=== PATIENT | female | born 1955 | race Caucasian/White ===

== ENCOUNTER 2021-08-29 11:01 | Emergency (ER) | payer MEDICARE, SELFPAY ==
--- NOTE | ~2021-08-29 | XR_ITS ---
EXAMINATION: XR abdomen/kub 1V DATE: 08/29/2021 12:27 INDICATION: Right lower quadrant abdominal pain. Constipation. TECHNIQUE: A supine view of the abdomen on 2 radiographs was obtained. COMPARISON: None. FINDINGS: There are no dilated loops of bowel. There is a small volume of stool in the colon. There i s a gallstone in the gallbladder. There are phleboliths in the pelvis. IMPRESSION: 1. Normal bowel gas pattern. 2. Cholelithiasis. Reviewed, dictated and finalized at location A.
[2021-08-29 11:07] VITALS: BP 126/67; PULSE 117; RESP 16; TEMP 35.8; O2SAT 98
--- NOTE | 2021-08-29 12:10 | ED.ABDPAIN ---
HPI - Abdominal Pain General Chief Complaint: Abdominal Pain Stated Complaint: front right lower pain Time Seen by Provider: 08/29/21 12:10 Mode of arrival: ambulatory Limitations: no limitations History of Present Illness HPI narrative: 66-year-old female presents with concern for right lower quadrant abdominal pain. She reports symptoms started 3 days ago and have not improved. She reports a feeling of abdominal gas that is not going away. She reports she has not had a bowel movement in 4 days. She typically has a bowel movement every other day. She denies dysuria, frequency, urgency, nausea, vomiting, diarrhea. Reports decreased appetite and fatigue. Reports pain is exacerbated when she moves, rolls over in bed. Denies relieving factors MD elicited complaint: abdominal pain Related Data Home Medications Medication Instructions Recorded Confirmed canagliflozin-metformin [Invokamet] 1 tablet PO BID 08/29/21 08/29/21 exenatide microspheres [Bydureon 2 mg SUBCUT WEEKLY 08/29/21 08/29/21 BCise] gabapentin 600 mg PO BID 08/29/21 08/29/21 levothyroxine 100 mcg PO DAILY 08/29/21 08/29/21 lisinopril 2.5 mg PO BID 08/29/21 08/29/21 metformin 1,000 mg PO BID 08/29/21 08/29/21 simvastatin 20 mg PO DAILY 08/29/21 08/29/21 Allergies Allergy/AdvReac Type Severity Reaction Status Date / Time No Known Allergies Allergy Unverified 10/06/17 06:56 Review of Systems Review of Systems: CONSTITUTIONAL: Denies malaise, chills, sweats, or fever. Reports fatigue CARDIOVASCULAR: Denies chest pain, palpitations, or edema. RESPIRATORY: Denies cough or dyspnea. GASTROINTESTINAL: Reports right lower quadrant pain, constipation, decreased appetite. Denies nausea, vomiting, diarrhea, bloody, or mucous stools. GENITOURINARY: Denies dysuria, frequency, urgency, or hematuria. SKIN: Denies rash or itching. MUSCULOSKELETAL: Reports low back pain. Denies myalgia. NEUROLOGIC: Denies numbness, weakness, or headache. All systems reviewed & are unremarkable except as noted in HPI and below [facility] Family History Family History (Updated 06/21/14 @ 12:21 by DOCTOR UNKNOWN) Other Diabetes mellitus Family history of gout Family history of malignant neoplasm Hypertension Social History Social History Smoking status: Never smoker Alcohol intake: current Comments At time of signature, agree with nursing past medical, surgical, social and family history. There is no relevant family history pertinent to the presenting complaint Exam Narrative: GENERAL: Well-appearing, well-nourished, and in no acute distress. HEAD: Normocephalic EYES: PERRLA, sclera clear ENT: Nares clear. Mucous membranes moist NECK: Supple. CHEST: No respiratory distress. Clear to auscultation. No bony deformities, no asymmetry. Speaks in full sentences. HEART: Regular rate and rhythm. ABDOMEN: Soft, obese, nondistended, no palpable masses. Bilateral upper quadrant bowel sounds normal, bilateral lower quadrant bowel sounds hypoactive, right upper quadrant tenderness, right lower quadrant tenderness EXTREMITIES: Grossly normal range of motion, no edema. SKIN: Warm, dry, no visible rash. NEURO: Alert and oriented x3. PSYCH: Normal mood and affect Course Course Emergency Course: Discussed with patient limited diagnostic capability [facility] for abdominal pain. Reviewed lab results and x-ray results. Offered transfer to emergency department versus follow-up with primary care. Patient prefers to follow-up with primary care, she understands reasons to go the emergency room for symptoms change or worsen. Based on urinalysis will start antibiotic pending urine culture. Patient is aware of, understands and agrees to treatment plan. Anticipatory guidance given. Patient agrees to follow-up as directed and is aware of reasons to seek care at the emergency department. Portions of this record may have been created with voice recognition software Level of Care: Expr
== END 2021-08-29 12:48 | disposition home or self-care (01) ==
PROVIDERS: Emergency Provider Nurse Practitioner; PCP Physician Assistant
DX: R82.90 Unspecified abnormal findings in urine (principal); K80.20 Calculus of gallbladder without cholecystitis without obstruction; E78.00 Pure hypercholesterolemia, unspecified; I10 Essential (primary) hypertension; M19.90 Unspecified osteoarthritis, unspecified site; E11.9 Type 2 diabetes mellitus without complications; E03.9 Hypothyroidism, unspecified
CPT/HCPCS: 74018; 81003; 87086; 87088; 99203; G0463

== ENCOUNTER 2021-08-29 15:28 | Observation (INO) | payer MEDICARE, SELFPAY ==
[2021-08-29] VITALS (10 sets, daily range): BP systolic 96–144; BP diastolic 59–86; PULSE 90–114; RESP 16–18; TEMP 36.6–36.8; O2SAT 92–99; BMI 39.0
--- NOTE | ~2021-08-29 | CT_ITS ---
EXAMINATION: CT abdomen pelvis w con INDICATION: Right lower quadrant and epigastric pain TECHNIQUE: Computed tomographic images of the abdomen and pelvis were obtained after the administrati on of 100 cc of Omnipaque 350 intravenous contrast. The dose-length product (DLP) was 1274.42 mGy-cm. Automated exposure control and iterative reconstruction technique were employed. COMPARISON: None available FINDINGS: The lung bases are clear. The heart size is normal. The liver, spleen, pancreas, and adrena l glands are normal. There is a stone in the nondistended gallbladder. The kidneys are unremarkable. There is calcified atherosclerosis of the aorta and many of the other arteries. No pathologically enl arged abdominal or pelvic lymph nodes are identified. There is no free intraperitoneal gas or evidenc e of bowel obstruction. There is a small appendicolith in the appendix. The dilated appendix measures up to 1.4 cm. There is edematous stranding of the periappendiceal fat. No perforation or abscess is identified. Pelvic ascites is likely inflammatory. There is severe lower thoracic and lower lumbar sp ondylosis. IMPRESSION: 1. Acute appendicitis. 2. Cholelithiasis without evidence of cholecystitis. These findings were discussed with Ariela Lin PA-C in the Emergency Department at 1809 hours on 08/29/2021. Reviewed, dictated and finalized at location F. IMPRESSION: 1. Acute appendicitis. 2. Cholelithiasis without evidence of cholecystitis. These findings were discussed with Ariela Lin PA-C in the Emergency Depart ment at 1809 hours on 08/29/2021.
[2021-08-29 15:44] LABS: Basophils Percent Auto 0.2 % (0.2-1.2); Eosinophils Percent Auto 0.1 % (0-4.4); Hematocrit 49.9 % (37.0-47.0); Hemoglobin 16.4 g/dL (12.0-15.0); Immature Granulocyte Absolute 0.09 K/mm3 (0.00-0.031); Immature Granulocyte Percent A 0.5 % (0-0.5); Lymphocytes Absolute Auto 1.75 K/mm3 (0.9-3.2); Lymphocytes Percent Auto 9.4 % (18.3-44.2); Mean Corpuscular HGB Conc 32.9 g/dl (32-36); Mean Corpuscular Volume 91.2 fl (80-100); Mean Platelet Volume 9.5 fl (7.4-10.4); Monocytes Absolute Auto 1.3 K/mm3 (0.1-0.6); Neutrophils Absolute Auto 15.5 K/mm3 (1.3-6.7); Neutrophils Percent Auto 82.8 % (45.5-73.1); Platelet Count Result 222 k/mm3 (150-375); Red Blood Count 5.47 M/mm3 (4.2-5.4); Red Cell Distribution Width 13.8 % (11.5-14.5); White Blood Count 18.7 K/mm3 (4.5-10.0)
[2021-08-29 15:54] LABS: Alanine Aminotransferase 19 U/L (4-35); Albumin Level 4.5 g/dL (3.5-5.1); Alkaline Phosphatase 95 U/L (38-126); Anion Gap 11 mmol/L (8-16); Aspartate Amino Transferase 21 U/L (14-36); Blood Urea Nitrogen 23 mg/dL (7-17); Calcium 9.4 mg/dL (8.4-10.2); Carbon Dioxide 25 mmol/L (22-30); Chloride 101 mmol/L (98-107); Estimated CRCL calculation 51 ml/min; Estimated Glomerular Filt Rate 45; Glucose 186 mg/dL (65-110); Lipase 76 U/L (23-300); Potassium 4.7 mmol/L (3.4-5.0); Sodium 137 mmol/L (137-145)
--- NOTE | 2021-08-29 17:06 | ED.ABDPAIN ---
HPI - Abdominal Pain General Chief Complaint: Abdominal Pain Stated Complaint: abd pain Time Seen by Provider: 08/29/21 17:05 Source: patient Mode of arrival: ambulatory Limitations: no limitations History of Present Illness HPI narrative: Patient is a 66-year-old female who presents the ED with report of abdominal pain. Patient reports she first developed mild epigastric abdominal pain 3 to 4 days ago. The pain has since migrated to her right lower quadrant and become worse over the past 3 days. Today, the pain began radiating around to her right lower back as well. She also reports having nausea, anorexia, and constipation for the past 3 days (typically has BM every other day), but denies any fever, chills, vomiting, diarrhea, chest pain, shortness of breath, urinary symptoms. Patient was seen at urgent care earlier today at which point she had a normal KUB x-ray. She was diagnosed with urinary tract infection and prescribed Augmentin. Related Data Home Medications Medication Instructions Recorded Confirmed Adult One Daily Multivitamin 1 tablet BYMOUTH BID 08/29/21 08/29/21 aspirin [Adult Aspirin] 81 mg PO QAM 08/29/21 08/29/21 canagliflozin-metformin [Invokamet] 1 tablet PO BID 08/29/21 08/29/21 exenatide microspheres [Bydureon 2 mg SUBCUT WEEKLY 08/29/21 08/29/21 BCise] gabapentin 600 mg PO BID 08/29/21 08/29/21 levothyroxine 100 mcg PO DAILY 08/29/21 08/29/21 lisinopril 2.5 mg PO QPM 08/29/21 08/29/21 simvastatin 20 mg PO DAILY 08/29/21 08/29/21 Allergies Allergy/AdvReac Type Severity Reaction Status Date / Time No Known Allergies Allergy Unverified 10/06/17 06:56 Review of Systems Review of Systems: CONSTITUTIONAL: Reports anorexia. Denies fever, chills. CARDIOVASCULAR: Denies chest pain, palpitations, or edema. RESPIRATORY: Denies cough or dyspnea. GASTROINTESTINAL: Reports epigastric and RLQ pain, nausea, constipation. Denies vomiting, rectal bleeding, or diarrhea. GENITOURINARY: Denies dysuria or hematuria. SKIN: Denies rash or itching. MUSCULOSKELETAL: Reports R lower back pain. Denies joint pain, or myalgia. NEUROLOGIC: Denies headache, numbness, or weakness. All systems reviewed & are unremarkable except as noted in HPI and below PMFSH Past Medical History Medical History (Updated 08/29/21 @ 20:31 by Ariela Lin PA-C) Diabetes mellitus Hyperlipidemia Hypertension Surgical History Surgical History (Updated 08/29/21 @ 17:33 by Ariela Lin PA-C) History of 2 sections Family History Family History Father Diabetes mellitus Hypertension Diverticulitis Grandparent Diabetes mellitus Family history of malignant neoplasm Mother Family history of malignant neoplasm Social History Social History Smoking status: Former smoker Tobacco type: cigarettes Alcohol intake: current Drinks per week: 2 Substance use: never Spiritual care concerns: No Exam Narrative: GENERAL: Well appearing, well-nourished, non-toxic, in no acute distress. HEAD: Normocephalic, atraumatic. NECK: Supple. No adenopathy, no masses. RESPIRATORY: Airway patent, respirations nonlabored. Clear to auscultation bilaterally, no rales, rhonchi, wheezing. CARDIOVASCULAR: Tachycardic with regular rhythm without murmurs, rubs, or gallops. Radial pulses 2+ and equal bilaterally. ABDOMINAL: Soft, mild tenderness to palpation in epigastric region, moderate tenderness to palpation in RLQ with + rebound, nondistended, no hepatosplenomegaly. Normoactive BS. MUSCULOSKELETAL: Moves all extremities. Strength/ROM intact without gross deformities or TTP. Mild tenderness to palpation in R lower back around sacral area. SKIN: Warm, dry, normal color. No rashes. NEURO: A&O X3. Speech clear. Cranial nerves II-XII grossly intact. Steady gait. No ataxic movements. PSYCHIATRIC: Appropriate mood and affect. Normal interaction. Course Consultations Consultation
[2021-08-29 17:56] LABS: Add Urine Microscopic? YES; Appearance Urine Cloudy (Clear); Bacteria Urine Trace /hpf; Bilirubin Urine Negative (Negative); Blood Urine 1+ (Negative); Color Urine Yellow (Yellow); Glucose Urine UA 3+ mg/dL (Negative); Ketones Urine Trace mg/dL (Negative); Leukocyte Esterase Ur 2+ LEU/UL (Negative); Mucus Urine Rare /lpf; Nitrate Urine Negative (Negative); Protein Urine 1+ mg/dL (Negative); Squamous Epithelial Cell Urine Occasional /hpf (Few); Urobilinogen Urine Negative mg/dL (<2.0); WBC Urine 21-30 /hpf
[2021-08-29] MEDS: SODIUM CHLORIDE 0.9% IV 1,000 ML 999 ML IV CONT (17:56)
[2021-08-29] MEDS: ONDANSETRON INJ 4 MG/2 ML VIAL IV PUSH (17:56)
[2021-08-29 18:06] LABS: Specific Grav Ur 1.035 (1.001-1.035)
[2021-08-29 18:50] LABS: Lactic Acid Reflex 1.4 mmol/L (0.7-2.0)
[2021-08-29] MEDS: SODIUM CHLORIDE 0.9% IV 1,000 ML 125 ML IV CONT (19:40)
--- NOTE | 2021-08-29 19:46 | PM.IMHP ---
H&P: HPI History of Present Illness Date/Time: 08/29/21 19:46 Chief Complaint: Abdominal pain. Narrative: This is a 66-year-old female with past medical history significant for type 2 diabetes mellitus, hypertension, peripheral neuropathy, dyslipidemia, obesity. Patient presents to the emergency room due to right lower quadrant pain that has been present for the last 3 days or so, chills, poor appetite, nausea and vomiting. Patient has been in her usual state of health up until this. Decided to come to the emergency room after pain progressively got worse she rates it at 7/10 in intensity. Preliminary workup was significant for CBC with leukocyte count of 18,000, urinalysis with numerous WBCs present, CT of abdomen and pelvis showed acute appendicitis. Patient is been admitted for further evaluation, management and treatment. Review of Systems Review of Systems: Right lower quadrant pain, poor appetite, nausea, vomiting, generalized malaise. Constitutional: Constitutional: Reports fever(s), Reports malaise, Denies night sweats and Reports poor appetite Eyes: Eyes: Denies change in vision ENT: Denies dysphagia, Denies vertigo, Denies dizziness, Denies nasal congestion, Denies nasal discharge, Denies nasal obstruction and Denies odynophagia Cardiovascular: Cardiovascular: Denies lightheadedness, Denies radiating jaw, neck or arm pain, Denies palpitations, Denies dyspnea on exertion and Denies orthopnea Respiratory: Respiratory: Denies cough and Denies excessive phlegm production Gastrointestinal: Gastrointestinal: Reports abdominal pain, Denies change in stool character, Denies dyspepsia, Denies heartburn, Denies diarrhea, Reports nausea and Reports vomiting Genitourinary: Genitourinary: Denies dysuria Musculoskeletal: Musculoskeletal: Denies myalgias, Denies arthralgias and Denies joint swelling Integumentary/Breasts: Skin/Breast: Denies rash Neurologic: Denies focal weakness and Denies Sensory deficit (Neuro) Psychiatric: Psychiatric: Reports no additional psychiatric complaints and Reports as per HPI Endocrine: Endocrine: Denies cold intolerance, Denies heat intolerance, Denies polyphagia, Denies polydipsia and Denies palpitations Hematologic/Lymphatic: Hematologic/Lymphatic: Reports no additional hematologic/lymphatic complaints and Reports as per HPI Allergic/Immunologic: Allergic/Immunologic: Reports no additional allergic/immunologic complaints and Reports as per HPI [facility] Past Medical History Medical History (Updated 08/30/21 @ 03:33 by Mona Chandra MD) Diabetes mellitus Hyperlipidemia Hypertension Surgical History Surgical History (Updated 08/29/21 @ 17:33 by Ariela Lin PA-C) History of 2 sections Family History Family History (Updated 08/29/21 @ 20:33 by Hilary Wong RN) Father Diabetes mellitus Hypertension Diverticulitis Grandparent Diabetes mellitus Family history of malignant neoplasm Mother Family history of malignant neoplasm Social History Social History Smoking status: Former smoker Tobacco type: cigarettes Alcohol intake: current Drinks per week: 2 Substance use: never Spiritual care concerns: No Meds Home Medications and Allergies Home Medications Medication Instructions Recorded Confirmed Type Adult One Daily Multivitamin 1 tablet BYMOUTH BID 08/29/21 08/29/21 History aspirin [Adult Aspirin] 81 mg PO QAM 08/29/21 08/29/21 History canagliflozin-metformin [Invokamet] 1 tablet PO BID 08/29/21 08/29/21 History exenatide microspheres [Bydureon 2 mg SUBCUT WEEKLY 08/29/21 08/29/21 History BCise] gabapentin 600 mg PO BID 08/29/21 08/29/21 History levothyroxine 100 mcg PO DAILY 08/29/21 08/29/21 History lisinopril 2.5 mg PO QPM 08/29/21 08/29/21 History simvastatin 20 mg PO DAILY 08/29/21 08/29/21 History Allergies Allergy/AdvReac Type Severity Reaction Status Date / Time No
--- NOTE | 2021-08-29 20:29 | ADMGEN ---
This patient, Jennifer Ibrahim, was admitted to Medical Room 349-01. Patient/family oriented to hospital policies and general routines including ID bracelet, bed and alarms, visiting hours, pain management, procedures, bathroom and other care routines, personal items, smoking policy, room service/diet, and visiting hours. Information on how to activate the Rapid Response Team has been discussed. Patient/Family are encouraged to report perceived risks to care and to ask questions if they do not understand what they are told or what they should do.
[2021-08-30 04:37] VITALS: BP 104/47; PULSE 81; RESP 16; TEMP 36.6; O2SAT 95
[2021-08-30] MEDS: SODIUM CHLORIDE 0.9% IV 1,000 ML 125 ML IV CONT ×3 (04:54→19:57)
[2021-08-30] MEDS: LEVOTHYROXINE SODIUM 100 MCG TABLET PO (05:32)
[2021-08-30 05:49] LABS: Basophils Percent Auto 0.3 % (0.2-1.2); Eosinophils Absolute Auto 0.3 K/mm3 (0-0.3); Eosinophils Percent Auto 2.1 % (0-4.4); Hematocrit 41.9 % (37.0-47.0); Hemoglobin 13.9 g/dL (12.0-15.0); Immature Granulocyte Absolute 0.05 K/mm3 (0.00-0.031); Immature Granulocyte Percent A 0.4 % (0-0.5); Lymphocytes Absolute Auto 1.62 K/mm3 (0.9-3.2); Lymphocytes Percent Auto 13.3 % (18.3-44.2); Mean Corpuscular HGB Conc 33.2 g/dl (32-36); Mean Corpuscular Hemoglobin 30.2 pg (26-34); Mean Corpuscular Volume 91.1 fl (80-100); Mean Platelet Volume 9.4 fl (7.4-10.4); Monocytes Absolute Auto 1.2 K/mm3 (0.1-0.6); Monocytes Percent Auto 10.1 % (2.6-8.5); Neutrophils Percent Auto 73.8 % (45.5-73.1); Platelet Count Result 187 k/mm3 (150-375); Red Cell Distribution Width 13.9 % (11.5-14.5); White Blood Count 12.2 K/mm3 (4.5-10.0)
[2021-08-30 06:00] LABS: Alanine Aminotransferase 14 U/L (4-35); Albumin Level 3.4 g/dL (3.5-5.1); Alkaline Phosphatase 75 U/L (38-126); Anion Gap 7 mmol/L (8-16); Aspartate Amino Transferase 18 U/L (14-36); Bilirubin,Total 0.8 mg/dL (0.2-1.3); Blood Urea Nitrogen 23 mg/dL (7-17); Calcium 8.3 mg/dL (8.4-10.2); Carbon Dioxide 23 mmol/L (22-30); Chloride 108 mmol/L (98-107); Estimated CRCL calculation 55 ml/min; Estimated Glomerular Filt Rate 50; Glucose 102 mg/dL (65-110); Potassium 3.8 mmol/L (3.4-5.0); Sodium 138 mmol/L (137-145)
[2021-08-30] MEDS: GABAPENTIN 300 MG CAPSULE 600 MG PO ×2 (09:11→17:51)
[2021-08-30] MEDS: MULTIVITAMINS THERAPEUTIC TAB (*BKC) 1 TABLET BY MOUTH ×2 (09:11→19:57)
[2021-08-30] MEDS: ENOXAPARIN 40 MG/0.4 ML SYRINGE SUB-Q (09:12)
--- NOTE | 2021-08-30 10:58 | PM.CNGS ---
Assessment and Plan Assessment and plan (1) Acute appendicitis: Onset Date: ~08/27/21 Qualifiers: Acute appendicitis type: with localized peritonitis Appendicitis abscess presence: without abscess Appendicitis gangrene presence: without gangrene Appendicitis perforation presence: without perforation Qualified Code(s): K35.30 - Acute appendicitis with localized peritonitis, without perforation or gangrene Code(s): K35.80 - Unspecified acute appendicitis Status: Acute Assessment and Plan: I had a thorough discussion with the patient regarding the treatment of acute uncomplicated appendicitis. I have presented both options of surgical intervention versus antibiotics and watchful waiting. I discussed possible laparoscopic appendectomy with the patient and also treatment with IV antibiotics followed by a course of oral antibiotics with outpatient follow-up. I have explained that approximately 70% of patients with a selection of antibiotics for treatment have done well and not required appendectomy over a 2 year span of time. We have discussed the risks, benefits, possible complications of both types of treatment and after thorough discussion she and I have together decided to proceed with continued IV antibiotics. This is especially in view of her significant comorbidities including obesity, diabetes mellitus, and possible UTI. Her UTI culture is pending and patient is probably covered with Zosyn as we continue antibiotics for the appendicitis. If doing well at lunch will plan to advance her diet to clears and then gradually advance over the next 24-48 hours. If her pain is controlled and she continues to improve may be able to convert to oral antibiotics and treat her further as an outpatient with close follow-up. (2) Hypertension: Onset Date: Unknown Code(s): I10 - Essential (primary) hypertension Status: Acute Assessment and Plan: P.r.n. medication is ordered for the patient. She will resume her usual oral medications once diet is allowed. (3) Diabetes mellitus: Code(s): E11.9 - Type 2 diabetes mellitus without complications Status: Acute Assessment and Plan: Appreciate consultation with Medical /hospitalist service. They have ordered appropriate coverage with insulin and will probably resume some of her medications depending on what we can do with her diet over the next 24 hours. (4) Obesity, Class II, BMI 35-39.9, isolated (see actual BMI): Code(s): E66.9 - Obesity, unspecified Status: Acute (5) Hyperlipidemia: Onset Date: Unknown Code(s): E78.5 - Hyperlipidemia, unspecified Status: Acute Assessment and Plan: Will plan to resume medications for this upon discharge. History of Present Illness Consult details Consult date: 08/30/21 Reason for consult: abdominal pain Requesting physician: Mona Chandra MD Narrative: This patient is a pleasant 66-year-old white female seen at the request of the emergency room and Dr. Edwards. Patient states that she began feeling somewhat ill on Friday of this last week. She 1st noticed a slight decrease in appetite and some lower abdominal pain mostly at or below the level of the umbilicus. By Friday the pain had increased such that she did feel like she could even get out of bed. Then on Friday morning it seemed to be located more in the right lower quadrant so she decided to go to the [facility] urgent care with her . Plain x-rays revealed the gallstone mentioned in the H and P and on the x-ray report but because of of a elevated white count they offered patient to contact her primary care physician or go to the ED. She contacted her PCP who then recommended she come to the ED at [place] which she did. For workup in the emergency room last evening revealed possible UTI, probable acute uncomplicated appendicitis, diabetes mellitus with the blood sugar of 184, a
[2021-08-30 11:28] LABS: Glucose Point of Care 104 mg/dl (65-105)
--- NOTE | 2021-08-30 11:31 | PCNSR ---
On 08/30/21, the student, Juanita Lozano, provided care and completed [facility] documentation on this patient. I have reviewed the student's documentation and agree with the findings.
--- NOTE | 2021-08-30 12:30 | PM.IMPN ---
Progress Note: A&P Assessment and Plan (1) Acute appendicitis: Onset Date: ~08/27/21 Qualifiers: Acute appendicitis type: with localized peritonitis Appendicitis abscess presence: without abscess Appendicitis gangrene presence: without gangrene Appendicitis perforation presence: without perforation Qualified Code(s): K35.30 - Acute appendicitis with localized peritonitis, without perforation or gangrene Code(s): K35.80 - Unspecified acute appendicitis Status: Acute Assessment and Plan: RLQ pain reported CT shows acute appendicitis General surgery consulted Diet per surgery, clear liquids currently IV Zosyn on board Blood cultures pending [place] and morphine for pain control Zofran for antiemetics DVT per general surgery (2) Hypertension: Onset Date: Unknown Code(s): I10 - Essential (primary) hypertension Status: Acute Assessment and Plan: Current BP 149/80 Continue home lisinopril Continue to trend BP adjust therapy as indicated (3) Diabetes mellitus: Code(s): E11.9 - Type 2 diabetes mellitus without complications Status: Acute Assessment and Plan: Glucose 102 Holding canagliflozin and metformin and exenatide Insulin sliding scale as needed Trend glucose Adjust therapy as indicated (4) Hyperlipidemia: Onset Date: Unknown Code(s): E78.5 - Hyperlipidemia, unspecified Status: Acute Assessment and Plan: Continue statin (5) Peripheral autonomic neuropathy due to diabetes mellitus: Code(s): E11.43 - Type 2 diabetes mellitus with diabetic autonomic (poly)neuropathy Status: Acute Assessment and Plan: Continue gabapentin. (6) Urinary tract infection: Code(s): N39.0 - Urinary tract infection, site not specified Status: Acute Assessment and Plan: UA shows cloudy yellow, 3+ proteins, 2+ leukocyte esterase, 21-30 WBC, trace bacteria Continue Zosyn Await cultures Tailor antibiotics to culture results Time Spent With Patient Time with patient: Greater than 35 minutes Subjective Date/time seen: 08/30/21 12:30 Interval history: Date/Time: 08/29/21 19:46 Narrative: This is a 66-year-old female with past medical history significant for type 2 diabetes mellitus, hypertension, peripheral neuropathy, dyslipidemia, obesity. Patient presents to the emergency room due to right lower quadrant pain that has been present for the last 3 days or so, chills, poor appetite, nausea and vomiting. Patient has been in her usual state of health up until this. Decided to come to the emergency room after pain progressively got worse she rates it at 7/10 in intensity. Preliminary workup was significant for CBC with leukocyte count of 18,000, urinalysis with numerous WBCs present, CT of abdomen and pelvis showed acute appendicitis. Patient is been admitted for further evaluation, management and treatment. Date/Time 08/30/21 12:30 Patient seems to be doing well today. Patient stated that her pain is a 7-8 without medication and a 5/10 with Tylenol. She stated that she has not been eating since the pain has been there. She also stated that she has had a hard time with gas however now that she has been taking the antibiotics the pain medicine that she is able to have gas. She denies any sweats, fevers, chills, chest pain, shortness of breath, nausea or vomiting. She did state that she would like to be discharged soon if than her to do surgery. White blood cell count is trending down. Review of Systems Review of Systems: All systems reviewed & are unremarkable except as noted in HPI and below Exam Const: General: cooperative, healthy appearing, no acute distress, well developed, alert and awake Nutritional Appearance: well nourished Orientation/consciousness: patient oriented x3 Limitations: no limitations HENMT: Head: normal to inspec
[2021-08-30 14:00] VITALS: BP 149/80; PULSE 65; RESP 18; TEMP 36.4; O2SAT 98
[2021-08-30] MEDS: ACETAMINOPHEN 500 MG TABLET 1000 MG PO ×2 (14:39→22:27)
[2021-08-30 16:32] LABS: Glucose Point of Care 113 mg/dl (65-105)
[2021-08-30] MEDS: SIMVASTATIN 20 MG TABLET PO (17:51)
[2021-08-30] MEDS: lisinopriL 2.5 MG TABLET PO (17:52)
[2021-08-30 20:55] LABS: Glucose Point of Care 139 mg/dl (65-105)
[2021-08-30 21:27] VITALS: BP 115/60; PULSE 79; RESP 16; TEMP 36.1; O2SAT 98
[2021-08-31 04:33] VITALS: BP 104/66; PULSE 76; RESP 16; TEMP 36.4; O2SAT 99
[2021-08-31] MEDS: SODIUM CHLORIDE 0.9% IV 1,000 ML 125 ML IV CONT (05:31)
[2021-08-31] MEDS: LEVOTHYROXINE SODIUM 100 MCG TABLET PO (05:32)
[2021-08-31 05:50] LABS: Basophils Percent Auto 0.3 % (0.2-1.2); Eosinophils Absolute Auto 0.5 K/mm3 (0-0.3); Hematocrit 39.8 % (37.0-47.0); Hemoglobin 13.4 g/dL (12.0-15.0); Immature Granulocyte Absolute 0.04 K/mm3 (0.00-0.031); Immature Granulocyte Percent A 0.4 % (0-0.5); Lymphocytes Absolute Auto 1.51 K/mm3 (0.9-3.2); Lymphocytes Percent Auto 16.3 % (18.3-44.2); Mean Corpuscular HGB Conc 33.7 g/dl (32-36); Mean Corpuscular Hemoglobin 30.4 pg (26-34); Mean Corpuscular Volume 90.2 fl (80-100); Mean Platelet Volume 9.7 fl (7.4-10.4); Monocytes Percent Auto 10.3 % (2.6-8.5); Neutrophils Absolute Auto 6.3 K/mm3 (1.3-6.7); Neutrophils Percent Auto 67.7 % (45.5-73.1); Platelet Count Result 199 k/mm3 (150-375); Red Blood Count 4.41 M/mm3 (4.2-5.4); Red Cell Distribution Width 13.8 % (11.5-14.5); White Blood Count 9.3 K/mm3 (4.5-10.0)
[2021-08-31 06:05] LABS: Anion Gap 3 mmol/L (8-16); Blood Urea Nitrogen 14 mg/dL (7-17); Calcium 8.2 mg/dL (8.4-10.2); Carbon Dioxide 23 mmol/L (22-30); Chloride 110 mmol/L (98-107); Estimated CRCL calculation 60 ml/min; Estimated Glomerular Filt Rate 56; Glucose 96 mg/dL (65-110); Potassium 3.6 mmol/L (3.4-5.0); Sodium 136 mmol/L (137-145)
[2021-08-31 07:24] LABS: Glucose Point of Care 94 mg/dl (65-105)
[2021-08-31] MEDS: MULTIVITAMINS THERAPEUTIC TAB (*BKC) 1 TABLET BY MOUTH (08:32)
[2021-08-31] MEDS: GABAPENTIN 300 MG CAPSULE 600 MG PO (08:32)
--- NOTE | 2021-08-31 10:16 | PM.DS ---
DS: Admitting Diagnosis Discharge Date 08/31/2021 Admitting Diagnosis 1. Acute appendicitis, uncomplicated 2. Type 2 diabetes 3. Obesity BMI 39 DS: Discharge Diagnosis Discharge Diagnosis (1) Acute appendicitis: Onset Date: ~08/27/21 Qualifiers: Acute appendicitis type: with localized peritonitis Appendicitis abscess presence: without abscess Appendicitis gangrene presence: without gangrene Appendicitis perforation presence: without perforation Qualified Code(s): K35.30 - Acute appendicitis with localized peritonitis, without perforation or gangrene Code(s): K35.80 - Unspecified acute appendicitis Status: Acute Assessment and Plan: This was the main reason for admission. By CT scan patient had acute uncomplicated appendicitis. Antibiotics were started in the ED and patient was followed for the next 24-36 hours. I had a thorough discussion with her the options treatment with antibiotics versus surgical intervention. Because she had had pain at home for more than 48 hours and there was no signs of rupture or abscess on the CT I thought that she was a good candidate for treatment with antibiotics alone. Her pain was fairly well controlled when she started on antibiotics and continued to improve through the hospital course. She was treated with Zosyn and we will convert to oral antibiotics using Levaquin and Flagyl. Blood sugars were fairly well controlled and the consultation with the hospitalist was appreciated. Patient will watch for signs of fever increasing abdominal pain or other problems and call the office in the next week or 2 if problems. Otherwise she will be seen in follow-up in the surgical office in approximately 6-7 days just prior to going off antibiotics. On the day of discharge I did discuss with the patient colonoscopy. She states that Dr. Livingston did her last 1 at [place] several years back. Apparently she had no polyps at that time. She believe she is due in 2022 for her next 1. I encouraged her to keep that appointment or perhaps even check and see if she could have that done during this calendar year in view of this episode of appendicitis it would be nice to be sure that there was no polyps within the cecal area or near the base or orifice og the appendix, as rarely this can be a cause of appendicitis in the elderly. She indicated that she would discuss this with her PCP and think about having this for later this year. I encouraged her to be sure that the endoscopist knows that she had an episode of appendicitis treated with antibiotics at this time. (2) Diabetes mellitus: Code(s): E11.9 - Type 2 diabetes mellitus without complications Status: Acute Assessment and Plan: Encouraged the patient to follow a strict carbohydrate controlled diet. Encouraged her that being more active and losing weight perhaps would help bring her requirements for treatment down. (3) Hypertension: Onset Date: Unknown Code(s): I10 - Essential (primary) hypertension Status: Acute (4) Obesity, Class II, BMI 35-39.9, isolated (see actual BMI): Code(s): E66.9 - Obesity, unspecified Status: Acute DS: Summary Hospital Course Hospital Course: By CT scan patient had acute uncomplicated appendicitis. Antibiotics were started in the ED and patient was followed for the next 24-36 hours. I had a thorough discussion with her to outline the options for treatment with antibiotics versus surgical intervention. Because she had had pain at home for more than 48 hours and there was no signs of rupture or abscess on the CT, I thought that she was a good candidate for treatment with antibiotics alone. Her pain was fairly well controlled when she started on antibiotics and continued to improve through the hospital course. Her white count also came down to normal during her hospital stay. She was treated with Zosyn and we will convert to oral antibiotics u
--- NOTE | 2021-08-31 10:43 | PM.IMPN ---
Progress Note: A&P Assessment and Plan (1) Acute appendicitis: Onset Date: ~08/27/21 Qualifiers: Acute appendicitis type: with localized peritonitis Appendicitis abscess presence: without abscess Appendicitis gangrene presence: without gangrene Appendicitis perforation presence: without perforation Qualified Code(s): K35.30 - Acute appendicitis with localized peritonitis, without perforation or gangrene Code(s): K35.80 - Unspecified acute appendicitis Status: Acute Assessment and Plan: Presented with right lower quadrant pain, found to have acute appendicitis. She was managed by General surgery. Opted for conservative management with antibiotics. She was treated with IV Zosyn during admission and will continue taking Levaquin and Flagyl as an outpatient. She will follow-up with General surgery in 1 week. Preliminary blood cultures are negative to date and final cultures will be monitored. (2) Abnormal urinalysis: Code(s): R82.90 - Unspecified abnormal findings in urine Status: Acute Assessment and Plan: Urinalysis was abnormal on presentation. Patient remained asymptomatic. Urine culture with growth of mixed genital lilian not indicative of urinary tract infection. No further treatment required (3) Hypertension: Onset Date: Unknown Code(s): I10 - Essential (primary) hypertension Status: Acute Assessment and Plan: Blood pressures reviewed and were controlled. Continue home lisinopril (4) Diabetes mellitus: Code(s): E11.9 - Type 2 diabetes mellitus without complications Status: Acute Assessment and Plan: Blood sugars well controlled. Continue home hypoglycemic agents. Continue to monitor blood sugars (5) Hyperlipidemia: Onset Date: Unknown Code(s): E78.5 - Hyperlipidemia, unspecified Status: Acute Assessment and Plan: LFTs reviewed and are within normal limits. Continue simvastatin. (6) Peripheral autonomic neuropathy due to diabetes mellitus: Code(s): E11.43 - Type 2 diabetes mellitus with diabetic autonomic (poly)neuropathy Status: Acute Assessment and Plan: No acute issues. Continue gabapentin. Subjective Date/time seen: 08/31/21 10:43 Interval history: Date of service: 08/31/2021 Jennifer Ibrahim is a 66-year-old female with a history of type 2 diabetes mellitus, hypertension, hyperlipidemia, and obesity who is seen in follow-up for acute appendicitis. She is feeling significantly improved. At this time she denies any abdominal pain. She has some abdominal discomfort that she rates as 2/10 if she bends over at the waist but otherwise has been comfortable. She has been up and walking around throughout the day. She denies nausea and vomiting. She has been tolerating her diet. She had a loose bowel movement this morning. She denies fevers or chills. She denies urinary symptoms including dysuria, hematuria, urgency, frequency. She will be discharged home today per General surgery. She feels comfortable with this plan and is feeling back to her baseline state of health. Review of Systems Review of Systems: All systems reviewed & are unremarkable except as noted in HPI and below Exam Narrative: General: Obese, well-appearing 66 year-old female, sitting in a chair by the bedside, comfortable, NARD Neuro: awake, alert and oriented x4, speech clear, no focal neuro deficits noted HEENMT: normocephalic, atraumatic, EOMI, sclerae anicteric, moist oral mucosa Respiratory: clear to auscultation bilaterally, nonlabored breathing Cardio: regular rate, regular rhythm with S1-S2 Abdomen: nondistended, normoactive bowel sounds, soft, minimally tender to palpation right lower quadrant Extremities: no edema, erythema, or tenderness to palpation Skin: no rashes or lesions, warm and dry Psych: appropriate mood and affect, judgment and insight intact Ob
== END 2021-08-31 11:53 | disposition home or self-care (01) ==
LOC: ANHED 18:12 → ANH3MED 19:38
PROVIDERS: Emergency Medicine; Physician Assistant; Admitting Provider Surgery; Emergency Provider Emergency Medicine; PCP Physician Assistant; Visit Provider Surgery
DX: K35.30 Acute appendicitis with localized peritonitis, without perforation or gangrene (principal); N39.0 Urinary tract infection, site not specified; I10 Essential (primary) hypertension; E78.5 Hyperlipidemia, unspecified; E11.43 Type 2 diabetes mellitus with diabetic autonomic (poly)neuropathy; Z87.891 Personal history of nicotine dependence
CPT/HCPCS: 36415; 74018; 74177; 80048; 80053; 81001; 81003; 82948; 83605; 83690; 85025; 87040; 87086; 96361; 96365; 96372; 96375; 96376; 99285; A9270; G0378; J0131; J1650; J2405; J2543; J7030; Q9967

== ENCOUNTER 2022-03-23 22:17 | Observation (INO) | payer MEDICARE, SELFPAY ==
--- NOTE | ~2022-03-23 | CT_ITS ---
EXAMINATION: CT abdomen pelvis w con DATE: 03/23/2022 23:58 INDICATION: Diffuse abdominal pain TECHNIQUE: Computed tomography (CT) of the abdomen and pelvis was performed with 100 mL Omnipaque-350 intravenous contrast. Automated exposure control and iterative reconstruction technique were employe d. The dose-length product was 1561.29 mGy-cm. COMPARISON: 08/29/2021 FINDINGS: Dependent atelectasis in the bilateral lower lobes. Heart size is normal. Atherosclerotic coronary ar syed calcific lesions. No pericardial or pleural effusion. Calcite gallstone at the neck of the gallb ladder. No bladder wall thickening, lolis dilation or pericholecystic inflammatory change to suggest acute cholecystitis. Liver, spleen, pancreas, bilateral adrenal glands and right kidney are normal.. Parapelvic cysts at the left kidney. Prominent inflammatory stranding surrounding the appendix which is dilated to 1.4 cm consistent with acute appendicitis. Bowels are otherwise unremarkable with no ob struction. Bladder, uterus and bilateral adnexa are unremarkable. Trace amount of free fluid in the p stefanie. No abscess or free intraperitoneal gas. No pathologically enlarged abdominal or pelvic lymphad enopathy. Severe thoracolumbar spondylosis. L1 hemangioma. IMPRESSION: 1. Acute appendicitis. 2. Cholelithiasis. Reviewed, dictated and finalized at location A. [employer]
[2022-03-23 22:19] VITALS: PULSE 79; RESP 18; TEMP 36.6; O2SAT 96
[2022-03-23 22:40] LABS: Basophils Percent Auto 0.2 % (0.2-1.2); Eosinophils Percent Auto 0.1 % (0-4.4); Hematocrit 49.1 % (37.0-47.0); Hemoglobin 16.5 g/dL (12.0-15.0); Immature Granulocyte Absolute 0.05 K/mm3 (0.00-0.031); Immature Granulocyte Percent A 0.4 % (0-0.5); Lymphocytes Percent Auto 8.9 % (18.3-44.2); Mean Corpuscular HGB Conc 33.6 g/dl (32-36); Mean Corpuscular Hemoglobin 30.7 pg (26-34); Mean Corpuscular Volume 91.3 fl (80-100); Mean Platelet Volume 9.5 fl (7.4-10.4); Monocytes Percent Auto 7.5 % (2.6-8.5); Neutrophils Absolute Auto 11.2 K/mm3 (1.3-6.7); Neutrophils Percent Auto 82.9 % (45.5-73.1); Platelet Count Result 209 k/mm3 (150-375); Red Blood Count 5.38 M/mm3 (4.2-5.4); Red Cell Distribution Width 13.6 % (11.5-14.5); White Blood Count 13.5 K/mm3 (4.5-10.0)
[2022-03-23 22:48] LABS: Lactic Acid Reflex 2.2 mmol/L (0.7-2.0)
[2022-03-23 22:49] LABS: Alanine Aminotransferase 31 U/L (6-35); Albumin Level 4.5 g/dL (3.5-5.1); Alkaline Phosphatase 112 U/L (38-126); Anion Gap 13 mmol/L (8-16); Aspartate Amino Transferase 24 U/L (14-36); Bilirubin,Total 0.7 mg/dL (0.2-1.3); Blood Urea Nitrogen 20 mg/dL (7-17); Calcium 9.2 mg/dL (8.4-10.2); Carbon Dioxide 21 mmol/L (22-30); Chloride 101 mmol/L (98-107); Estimated CRCL calculation 57 ml/min; Estimated Glomerular Filt Rate 50; Glucose 262 mg/dL (65-110); Lipase 94 U/L (23-300); Potassium 4.1 mmol/L (3.4-5.0); Sodium 135 mmol/L (137-145)
--- NOTE | 2022-03-23 23:04 | ED.ABDPAIN ---
HPI - Abdominal Pain General Chief Complaint: Abdominal Pain Stated Complaint: Abdominal Pain Time Seen by Provider: 03/23/22 22:49 History of Present Illness HPI narrative: 66-year-old female history of hypertension, dyslipidemia, hypothyroidism, diabetes presents the emergency room for evaluation of right-sided abdominal pain that began 10 hours prior to arrival. Patient states pain is sharp and radiates into her back. Patient denies any diarrhea or vomiting. States has a history of acute appendicitis dating back to July of this year, was admitted and treated with IV antibiotics. Patient is also aware of a large gallstone. Related Data Home Medications Medication Instructions Recorded Confirmed Adult One Daily Multivitamin 1 tablet BYMOUTH BID 08/29/21 09/26/21 aspirin 81 mg tablet 81 mg PO QAM 08/29/21 09/26/21 canagliflozin 150 mg-metformin 1 tablet PO BID 08/29/21 09/26/21 1,000 mg tablet (Invokamet) exenatide microspheres 2 mg/0.85 2 mg subcut WEEKLY 08/29/21 09/26/21 mL subcutaneous auto-injector ([employer]) gabapentin 300 mg capsule 600 mg PO BID 08/29/21 09/26/21 levothyroxine 100 mcg tablet 100 mcg PO DAILY 08/29/21 09/26/21 lisinopril 2.5 mg tablet 2.5 mg PO QPM 08/29/21 09/26/21 simvastatin 20 mg tablet 20 mg PO DAILY 08/29/21 09/26/21 Allergies Allergy/AdvReac Type Severity Reaction Status Date / Time No Known Allergies Allergy Verified 03/23/22 22:22 Review of Systems Review of Systems: CONSTITUTIONAL: Denies fever, chills, or sweats. EYES: Denies visual changes, redness, or discharge. ENT: Denies rhinorrhea, congestion, sore throat, or otalgia. CARDIOVASCULAR: Denies chest pain, palpitations, or edema. RESPIRATORY: Denies cough or dyspnea. GASTROINTESTINAL: Reports abdominal pain, nausea GENITOURINARY: Denies dysuria or hematuria. SKIN: Denies rash or itching. MUSCULOSKELETAL: Denies back pain, joint pain, or myalgia. NEUROLOGIC: Denies headache, numbness, dizziness, or weakness. PSYCHIATRIC: Denies anxiety or depression. [facility] Past Medical History Medical History (Updated 03/24/22 @ 01:08 by David Rizzo APRN) Asymptomatic cholelithiasis Diabetes mellitus Hyperlipidemia (Unknown) Hypertension (Unknown) Surgical History Surgical History History of 2 sections Family History Family History Father Diabetes mellitus Hypertension Diverticulitis Grandparent Diabetes mellitus Family history of malignant neoplasm Mother Family history of malignant neoplasm Social History Social History Smoking status: Never smoker Tobacco type: cigarettes Alcohol intake: current Drinks per week: 2 Substance use: never Spiritual care concerns: No Exam Narrative: GENERAL: Well-appearing, well-nourished, no physical limitations, and in obvious pain. HEAD: Normocephalic, atraumatic. EYES: Conjunctivae normal, PERRLA and EOMI. CHEST: Clear to auscultation. No respiratory distress. No wheezes rales or rhonchi. HEART: Regular rate and rhythm. No murmur heard. Normal peripheral pulses. ABDOMEN: Soft, RLQ/RUQ tenderness, obesity, nondistended, normal active bowel sounds. BACK: No CVA tenderness EXTREMITIES: Normal range of motion. No edema. No clubbing or cyanosis SKIN: Warm, dry, no rash. No noted wounds NEURO: No focal deficits. Alert and oriented x3. MAEW. CN's II-XI intact bilaterally, normal gait PSYCH: Cooperative. Normal mood and affect. Course Course Emergency Course: 99: Consult with Dr. Tao. He is willing to consult the patient in the morning. Vital Signs Vital signs: Vital Signs Temperature 36.6 C 03/23/22 22:19 Pulse Rate 79 03/23/22 22:19 Respiratory Rate 18 03/23/22 22:19 Pulse Oximetry 96 03/23/22 22:19 Temperature 36.6 C 03/23/22:19 Pulse Rate 110 H
[2022-03-23 23:08] LABS: Appearance Urine Clear (Clear); Bilirubin Urine Negative (Negative); Blood Urine Negative (Negative); Color Urine Yellow (Yellow); Glucose Urine UA 3+ mg/dL (Negative); Ketones Urine Negative (Negative); Leukocyte Esterase Ur Negative LEU/UL (Negative); Nitrate Urine Negative (Negative); Protein Urine Negative (Negative); Specific Grav Ur 1.015 (1.001-1.035); Urobilinogen Urine 0.2 mg/dL (<2.0)
[2022-03-23 23:11] LABS: Mucus Urine Rare /lpf; RBC Urine 0-2 /hpf (0-2); Squamous Epithelial Cell Urine Few /hpf (Few); WBC Urine 0-3 /hpf
[2022-03-23 23:12] LABS: Add Urine Microscopic? YES
[2022-03-23 23:16] VITALS: BP 131/64; PULSE 92; RESP 29; O2SAT 100
[2022-03-23] MEDS: SODIUM CHLORIDE 0.9% IV 1,000 ML 999 ML IV CONT (23:39)
[2022-03-23] MEDS: HYDROmorphone HCL INJ (*CRX) 1 MG/ML SYR IV PUSH (23:39)
[2022-03-23] MEDS: ONDANSETRON INJ 4 MG/2 ML VIAL IV PUSH (23:39)
[2022-03-24] VITALS (16 sets, daily range): BP systolic 99–148; BP diastolic 46–93; PULSE 84–117; RESP 16–23; TEMP 36.4–36.8; O2SAT 91–100; BMI 41.6
[2022-03-24] MEDS: SODIUM CHLORIDE 0.9% IV 1,000 ML 999 ML IV CONT (00:44)
[2022-03-24] MEDS: PIPERACILLIN/TAZOBACTAM SOD 4.5 GM in SODIUM CHLORIDE 0.9% IV 100 ML 200 ML IVPB (01:13)
[2022-03-24 01:37] LABS: Reflex Lactic Acid Yes or No Add Lactic
--- NOTE | 2022-03-24 01:47 | PM.IMHP ---
H&P: HPI History of Present Illness Date/Time: 03/24/22 01:47 Chief Complaint: Abdominal pain Narrative: Patient is a 66-year-old with past medical history of type 2 diabetes, peripheral neuropathy, hypothyroidism, essential hypertension, hyperlipidemia presents to ED with complaints of abdominal pain. She was in her usual state of health tolerated today she has developed significant lower quadrant abdominal pain radiating to her back. Of note patient saw her PCP last Friday and now wishes at that time. Patient has history of appendicitis treated with IV antibiotics 08/29/21. She states her diabetes is under control, on numerous agents, was about to start Ozempic. She has a service dog for her diabetes. Patient has no concerns at home, independent, active. In the ED: Abdominal CT scan concerning for acute uncomplicated appendicitis as well as possible acute cholecystitis, recognition for pelvic ultrasound for left adnexal 2.4 cm cyst. Patient has known cholelithiasis which previously has not caused any issues. Surgeon Dr. Tao was notified who will evaluate patient in a.m.. Patient was given a dose of Zosyn and IV fluids. Patient will be admitted for acute appendicitis. Review of Systems Review of Systems: Constitutional: No Fever, No Chills, No Night Sweats, No Fatigue, No Malaise ENT/Mouth: No Hearing Changes, No Ear Pain, No Nasal Congestion, No Sinus Pain, No Hoarseness, No sore throat, No Rhinorrhea, No Swallowing Difficulty Eyes: No Eye Pain, No Redness, No Vision Changes Cardiovascular: No Chest Pain, No Palpitations, No Dyspnea on Exertion, No Orthopnea, No Claudication, No Edema Respiratory: No Cough, No Sputum, No Wheezing, No Shortness of Breath Gastrointestinal: Endorses lower abdominal pain radiating to back Genitourinary: No Dysuria, No Urinary Frequency, No Hematuria, No Urinary Incontinence, No Urgency Musculoskeletal: No Arthralgias, No Myalgias, No Joint Swelling, No Joint Stiffness, No Back Pain Skin: No Skin Lesions, No Pruritis, No Hair Changes Neuro: No Weakness, No Numbness, No Paresthesias, No Loss of Consciousness, No Syncope, No Dizziness, No Headache Psych: No Anxiety/Panic, No Depression, No Insomnia Heme: No Bruising, No Bleeding Lymph: No Adenopathy Endocrine: No Polyuria, No Polydipsia, No Temperature Intolerance PMFSH Past Medical History Medical History Asymptomatic cholelithiasis Diabetes mellitus Hyperlipidemia (Unknown) Hypertension (Unknown) Hypothyroidism Surgical History Surgical History History of 2 sections History of thyroid surgery Family History Family History Father Diabetes mellitus Hypertension Diverticulitis Grandparent Diabetes mellitus Family history of malignant neoplasm Mother Family history of malignant neoplasm Social History Social History Smoking status: Never smoker Tobacco type: cigarettes Alcohol intake: current Drinks per week: 2 Substance use: never Spiritual care concerns: No Meds Home Medications and Allergies Home Medications Medication Instructions Recorded Confirmed Type Adult One Daily Multivitamin 1 tablet BYMOUTH BID 08/29/21 09/26/21 History aspirin 81 mg tablet 81 mg PO QAM 08/29/21 09/26/21 History canagliflozin 150 mg-metformin 1 tablet PO BID 08/29/21 09/26/21 History 1,000 mg tablet (Invokamet) exenatide microspheres 2 mg/0.85 2 mg subcut WEEKLY 08/29/21 09/26/21 History mL subcutaneous auto-injector (Alice Goodman) gabapentin 300 mg capsule 600 mg PO BID 08/29/21 09/26/21 History levothyroxine 100 mcg tablet 100 mcg PO DAILY 08/29/21 09/26/21 History lisinopril 2.5 mg tablet 2.5 mg PO QPM 08/29/21 09/26/21 History simvastatin 20 mg tablet 20 mg
--- NOTE | 2022-03-24 02:16 | ADMGEN ---
This patient, Jennifer Ibrahim, was admitted to 3 [facility] Surg Room 320-01. Patient/family oriented to hospital policies and general routines including ID bracelet, bed and alarms, visiting hours, pain management, procedures, bathroom and other care routines, personal items, smoking policy, room service/diet, and visiting hours. Information on how to activate the Rapid Response Team has been discussed. Patient/Family are encouraged to report perceived risks to care and to ask questions if they do not understand what they are told or what they should do.
[2022-03-24 02:36] LABS: Lactic Acid 3.8 mmol/L (0.7-2.0)
[2022-03-24] MEDS: SODIUM CHLORIDE 0.9% IV 1,000 ML 125 ML IV CONT (02:47)
[2022-03-24 03:12] LABS: Hemoglobin A1C 8.1 % (<5.7)
[2022-03-24 06:23] LABS: Glucose Point of Care 216 mg/dl (65-105)
[2022-03-24 07:42] LABS: Lactic Acid Reflex 1.4 mmol/L (0.7-2.0)
[2022-03-24] MEDS: HYDROmorphone HCL INJ (*CRX) 1 MG/ML SYR IV PUSH (08:30)
--- NOTE | 2022-03-24 08:43 | PM.CNGS ---
Assessment and Plan Assessment and plan (1) Acute appendicitis: Code(s): K35.80 - Unspecified acute appendicitis Status: Acute Assessment and Plan: I have reviewed the CT and discussed the findings with the patient. She presents with a 2nd episode of acute appendicitis after having her 1st episode treated with antibiotics about 7 months ago. I discussed with her that with antibiotic treatment there is always a chance of another episode in the future. She does not want to proceed with antibiotic treatment again this time and would prefer to proceed with surgical treatment. I have discussed that there are risks associated with both options, but given the early nature of her onset of symptoms this time, hopefully the surgical risks should be minimal. Her diabetes and morbid obesity due to increase risks of perioperative complications. I have recommended proceeding with urgent laparoscopic appendectomy, possible open. I discussed the procedure, risks, benefits, and alternatives. Questions were answered. She has been started on IV Zosyn. will continue this perioperatively. (2) Asymptomatic cholelithiasis: Code(s): K80.20 - Calculus of gallbladder without cholecystitis without obstruction Status: Acute (3) Body mass index (BMI) of 40.1 to 44.9 in adult: Code(s): Z68.41 - Body mass index [BMI] 40.0-44.9, adult Status: Acute (4) Diabetes mellitus: Code(s): E11.9 - Type 2 diabetes mellitus without complications Status: Acute (5) Hypertension: Onset Date: Unknown Code(s): I10 - Essential (primary) hypertension Status: Acute History of Present Illness Consult details Consult date: 03/24/22 Reason for consult: other (appendicitis) Requesting physician: David Rizzo, ALANNAH Narrative: This is a 66-year-old woman who I am asked to see for recurrent appendicitis. She presented to the emergency department overnight with abdominal pain that started around 10:00 a.m. yesterday morning. She states that she had some vague upper abdominal pain at 1st but then this localized to the right lower quadrant. She denies any fevers or chills. She has had no appetite throughout the day yesterday. She had a similar episode to this in August. She was found to have acute appendicitis at that time. evaluated the patient and gave her the option of medical treatment with antibiotics versus surgical treatment with appendectomy. Patient was educated on risks and benefits to both options and she chose to proceed with medical treatment. She did well and the appendicitis resolved and she had no symptoms until yesterday. Now she is saying that if this has any risk of happening again she would like to just proceed with surgery. Patient denies any foods that caused her pain. She does state that she occasionally has some upper abdominal pain after eating fried or fatty foods, but this is not how this episode happened. Review of Systems Review of Systems: All systems reviewed & are unremarkable except as noted in HPI and below Constitutional: Constitutional: Denies chills and Denies fever(s) Eyes: Eyes: Denies change in vision ENT: Denies hearing loss, Denies neck pain and Denies sore throat Cardiovascular: Cardiovascular: Denies chest pain and Denies dyspnea Respiratory: Respiratory: Denies cough, Denies dyspnea and Denies wheezing Gastrointestinal: Gastrointestinal: Reports as per HPI Genitourinary: Genitourinary: Denies hematuria and Denies dysuria Musculoskeletal: Musculoskeletal: Denies arthralgias, Denies joint swelling and Denies neck pain Allergic/Immunologic: Allergic/Immunologic: Denies wheezing [facility] Past Medical History Medical History Asymptomatic cholelithiasis Diabetes mellitus Hyperlipidemia (Unknown) Hypertension (Unknown) Hypothyroidism Surgical History Surgical History (Reviewed 03/24/22 @ 0
--- NOTE | 2022-03-24 10:35 | WPDANESEPPF ---
Anes - Initial Pre Proc Eval Procedure: Operation Date: 03/24/22 11:30 Proposed Procedures p Laparoscopic Appendectomy - Moses Tao DO Date/Time: 03/24/22 10:35 Surgeon: Dinh Pre Op Diagnosis: Appendicitis Patient Data Age: 66 Gender: F Height: 1.65 m Weight: 113.5 kg Last Vital Signs Temp 36.4 C 03/24/22 06:00 Pulse 111 H 03/24/22 06:00 Resp 18 03/24/22 06:00 BP 148/66 H 03/24/22 06:00 Pulse Ox 96 03/24/22 06:00 O2 Del Method Room Air 03/24/22 08:20 Allergies Allergy/AdvReac Type Severity Reaction Status Date / Time No Known Allergies Allergy Verified 03/23/22 22:22 Home Medications Medication Instructions Recorded Confirmed Type Adult One Daily Multivitamin 1 tablet BYMOUTH BID 08/29/21 03/24/22 History canagliflozin 150 mg-metformin 1 tablet PO BID 08/29/21 03/24/22 History 1,000 mg tablet (Invokamet) gabapentin 300 mg capsule 600 mg PO BID 08/29/21 03/24/22 History levothyroxine 100 mcg tablet 100 mcg PO DAILY 08/29/21 03/24/22 History lisinopril 2.5 mg tablet 2.5 mg PO QPM 08/29/21 03/24/22 History simvastatin 20 mg tablet 20 mg PO DAILY 08/29/21 03/24/22 History semaglutide 2 mg/dose (8 mg/3 mL) 2.5 mg subcut WE 03/24/22 03/24/22 History subcutaneous pen injector (Ozempic) Laboratory Tests 03/23/22 03/23/22 03/23/22 22:32 22:32 22:32 WBC 13.5 K/mm3 H K/mm3 (4.5-10.0) RBC 5.38 M/mm3 M/mm3 (4.2-5.4) Hgb 16.5 g/dL H D g/dL (12.0-15.0) Hct 49.1 % H % (37.0-47.0) MCV 91.3 fl fl (80-100) MCH 30.7 pg pg (26-34) MCHC 33.6 g/dl g/dl (32-36) RDW 13.6 % % (11.5-14.5) Plt Count 209 k/mm3 k/mm3 (150-375) MPV 9.5 fl fl (7.4-10.4) Immature Gran % (Auto) 0.4 % % (0-0.5) Neut % (Auto) 82.9 % H % (45.5-73.1) Lymph % (Auto) 8.9 % L % (18.3-44.2) [place] % (Auto) 7.5 % % (2.6-8.5) Eos % (Auto) 0.1 % % (0-4.4) Baso % (Auto) 0.2 % % (0.2-1.2) Lymph # (Auto) 1.20 K/mm3 K/mm3 (0.9-3.2) [place] # (Auto) 1.0 K/mm3 H K/mm3 (0.1-0.6) Eos # (Auto) 0.0 K/mm3 K/mm3 (0-0.3) Baso # (Auto) 0.0 K/mm3 K/mm3 (0.0-0.1) Abs Immat Gran (auto) 0.05 K/mm3 H K/mm3 (0.00-0.031) Absolute Neuts (auto) 11.2 K/mm3 H K/mm3 (1.3-6.7) Absolute Nucleated RBC 0.0 K/mm3 K/mm3 (0.0-0.012) Nucleated RBC % 0.0 % % (0.0-0.2) Sodium 135 mmol/L L mmol/L (137-145) Potassium 4.1 mmol/L mmol/L (3.4-5.0) Chloride 101 mmol/L mmol/L (98-107) Carbon Dioxide 21 mmol/L L mmol/L (22-30) Anion Gap 13 mmol/L mmol/L (8-16) BUN 20 mg/dL H mg/dL (7-17) Creatinine 1.10 mg/dL H mg/dL (0.7-1.0) Estim Creat Clear Calc 57 ml/min ml/min Estimated GFR 50 L (59 - ) Glucose 262 mg/dL H mg/dL (65-110) POC Capillary Glucose Hemoglobin A1c Lactic Acid 2.2 mmol/L H mmol/L (0.7-2.0) Calcium 9.2 mg/dL mg/dL (8.4-10.2) Total Bilirubin 0.7 mg/dL mg/dL (0.2-1.3) AST 24 U/L U/L (14-36) ALT 31 U/L U/L (6-35) Alkaline Phosphatase 112 U/L U/L (38-126) Total Protein 8.0 g/dL g/dL (6.3-8.2) Albumin 4.5 g/dL g/dL (3.5-5.1) Lipase 94 U/L U/L (23-300) Urine Color Urine Appearance Urine pH Ur Specific [place] Urine Protein Urine Glucose (UA) Urine Ketones Ur Blood (Man) Urine Nitrate Urine Bilirubin Urine Urobilinogen Leukocyte Esterase Rfl Urine RBC Urine WBC Ur Squamous Epith Cells Urine Mucus 03/23/22 03/24/22 03/24/22
--- NOTE | 2022-03-24 11:45 | PC.NURSE ---
pt left floor @ 1145 for surgery.
[2022-03-24 11:47] LABS: Glucose Point of Care 231 mg/dl (65-105)
[2022-03-24] MEDS: BUPIVACAINE/EPINEPHRINE 0.25% 50 ML VIAL 30 ML INFILTRATE (13:04)
[2022-03-24] MEDS: LACTATED RINGERS 1,000 ML 30 ML IV CONT (13:30)
--- NOTE | 2022-03-24 13:32 | PM.IMPN ---
Progress Note: A&P Assessment and Plan (1) Acute appendicitis: Qualifiers: Acute appendicitis type: with localized peritonitis Appendicitis abscess presence: unspecified whether abscess present Appendicitis gangrene presence: without gangrene Appendicitis perforation presence: without perforation Qualified Code(s): K35.30 - Acute appendicitis with localized peritonitis, without perforation or gangrene Code(s): K35.80 - Unspecified acute appendicitis Status: Acute Assessment and Plan: Patient presented to the hospital with c/o abdominal pain and CT abdomen and pelvis consistent with acute appendicitis (2nd episode, 1st episode was on 08/29/21). general surgeon consult Dr. Tao, patient NPO for surgery today Continue antibiotics: Zosyn 3.375 mg Q6 IV Continue IV fluids: Normal saline 125cc/hr Continue pain control: P.r.n. dilaudid nausea: IV Zofran PRN (2) Asymptomatic cholelithiasis: Code(s): K80.20 - Calculus of gallbladder without cholecystitis without obstruction Status: Acute Assessment and Plan: possible acute cholecystitis versus asymptomatic cholelithiasis. She does endorse pain radiating to her upper, middle back and mild RQU pain. patient has mild wall thickening and known gallstones. Patient's symptoms are lower abdominal more consistent with appendicitis. General Surgery consulted and appreciate recommendations. (3) Peripheral autonomic neuropathy due to diabetes mellitus: Code(s): E11.43 - Type 2 diabetes mellitus with diabetic autonomic (poly)neuropathy Status: Chronic Assessment and Plan: A1c 8%. Hold Invokamet and Ozempic while NPO and inpatient. Accu-checks Q6 hours while NPO with sliding scale insulin and hypoglycemia protocol Resume gabapentin when able to take PO. (4) Hypertension: Onset Date: Unknown Qualifiers: Hypertension type: primary hypertension Qualified Code(s): I10 - Essential (primary) hypertension Code(s): I10 - Essential (primary) hypertension Status: Chronic Assessment and Plan: Chronic, stable. Hold lisinopril preop. Monitor BP. (5) Hyperlipidemia: Onset Date: Unknown Qualifiers: Hyperlipidemia type: mixed hyperlipidemia Qualified Code(s): E78.2 - Mixed hyperlipidemia Code(s): E78.5 - Hyperlipidemia, unspecified Status: Chronic Assessment and Plan: Chronic, stable. Continue simvastatin. (6) Hypothyroidism: Qualifiers: Hypothyroidism type: postoperative Qualified Code(s): E89.0 - Postprocedural hypothyroidism Code(s): E03.9 - Hypothyroidism, unspecified Status: Chronic Assessment and Plan: Chronic, continue levothyroxine at home dose Plan Code status: Full code Disposition: Observation, home when cleared by surgery Time Spent With Patient Time with patient: 15 - 25 minutes Subjective Date/time seen: 03/24/22 13:32 Patient was found lying in bed. She reports some right upper and lower quadrant pain that radiates to her back. She denies nausea, vomiting or diarrhea. No chest pain or SOB. Review of Systems Review of Systems: All systems reviewed & are unremarkable except as noted in HPI and below Exam Narrative: General: No acute distress.?Lying in bed. Mental Status/Psych: Awake, alert and orientedx4. clear and appropriate speech. Neutral mood and affect. Pleasant and cooperative. Skin: fair, warm, dry and intact without rashes or lesions. Fair turgor.? HEENT: Normocephalic. Sclera is non-icteric. Pupils equal and round. Oral mucosa moist. Hearing grossly normal. Neck: Supple. Heart: S1 and S2 tachy rate and rhythm 100 bpm. No murmurs, gallops, or rubs auscultated. Chest: Respirations shallow 24 bpm. Lung sounds clear to bilateral upper lobes without wheezes, rhonchi or rales. Abdomen: Soft, round and tender to palpation RUQ and RLQ to palpation.? Bowel sounds present in
--- NOTE | 2022-03-24 13:38 | W.PM.PROC2 ---
Procedure Note - Detailed Date of Procedure 03/24/22 Pre-op Diagnosis Acute appendicitis Post-op Diagnosis Same Procedure Performed Laparoscopic appendectomy Surgeon Moses Tao, DO Anesthesia General and Local (0.5% bupivicaine with epinephrine) Indications This is a 66-year-old woman who presented to the emergency department early this morning with right lower quadrant pain that started yesterday. She had a similar episode to this 7 months ago and was found to have acute appendicitis at that time. She was given the option of antibiotic treatment verses surgery at that time and she chose to try antibiotic treatment. She had done well since then until yesterday. A CT in the emergency department this morning showed evidence of acute appendicitis. She was admitted and placed on IV antibiotics. Discussions were made with the patient about treatment options and decision was made to proceed with laparoscopic appendectomy, possible open. Findings Laparoscopic appendectomy was performed. The appendix appeared dilated and indurated, and there was some slight exudate on the surface. There did not appear to be any clear evidence of perforation or abscess. She also had a few adhesions involving omentum down in the pelvis. These adhesions came down with sharp and blunt dissection. The base of the appendix appeared healthy and viable. The appendix was removed and sent to the lab for pathology. Description of Procedure Procedure as well as risks, benefits, and alternatives were explained to the patient. The patient agreed to proceed. Written consent was obtained and placed in chart prior to procedure. The patient was brought back to surgical suite. She was placed supine on operating table. Time-out was done to confirm the patient and procedure. The patient was then intubated by the Anesthesia Department. Her abdomen was prepped and draped in sterile fashion using chlorhexidine prep. A 5 mm incision was made just to the left of the patient's umbilicus and a 5 mm Optiview trocar was advanced through the abdominal layers under direct visualization. Once inside the peritoneal cavity, carbon dioxide insufflation was used to create a pneumoperitoneum. The camera was inserted and the abdomen was inspected. No immediate abnormalities were identified. The patient was then placed in slight Trendelenburg position and rotated to the left. A 5 mm incision was made in the suprapubic region in midline and a 5 mm trocar was inserted under direct visualization. A 12 mm incision was made in the left lower quadrant and a 12 mm trocar was inserted under direct visualization. The right lower quadrant was carefully inspected. The cecum was identified and then this was traced back to the appendix. The appendix was identified and grasped at the mesoappendix and lifted anteriorly. Careful blunt dissection was carried out at the base of the appendix through the mesoappendix using a [place] grasper. An Endo-BALBIR 45 mm blue load stapler was then advanced across the base of the appendix and clamped and fired. A white reload was then clamped across the mesoappendix and fired. This freed up our appendix completely. It was then placed in an EndoCatch bag and removed through the left lower quadrant port. The staple lines were then inspected. Hemostasis appeared adequate and the staple lines appeared secure. The area was then irrigated with sterile saline. The pelvis was then carefully inspected and irrigated with sterile saline as well and the remainder of the abdomen was carefully inspected. The patient was then flattened out in bed. One final inspection was made around the abdominal cavity and no other abnormalities were seen. The left lower quadrant port was removed and a Jaskaran-Windy cone was used to approximate the fascia with an 0 Vicryl simple interrupted suture. The remaining ports were then removed under direct visualization. The camera was removed and the pneumoperi
[2022-03-24 14:13] LABS: Glucose Point of Care 220 mg/dl (65-105)
--- NOTE | 2022-03-24 14:50 | PC.NURSE ---
pt returned to floor @ 1450 from surgery.
[2022-03-24 16:53] LABS: Glucose Point of Care 255 mg/dl (65-105)
[2022-03-24] MEDS: LACTATED RINGERS 1,000 ML 100 ML IV CONT (17:11)
[2022-03-24] MEDS: INSULIN ASPART (*BKC) 100 UNITS/ML SUB-Q (18:53)
[2022-03-25] MEDS: HYDROcodone/acetaminophen (*CRX) 7.5-325 MG TABLET 1 TAB PO ×2 (00:25→08:08)
[2022-03-25] MEDS: INSULIN ASPART (*BKC) 100 UNITS/ML SUB-Q (00:31)
[2022-03-25 00:59] LABS: Glucose Point of Care 269 mg/dl (65-105)
[2022-03-25 05:32] LABS: Glucose Point of Care 177 mg/dl (65-105)
[2022-03-25 06:00] VITALS: BP 123/57; PULSE 55; RESP 20; TEMP 37.6; O2SAT 87
[2022-03-25 06:07] LABS: Anion Gap 7 mmol/L (8-16); Blood Urea Nitrogen 20 mg/dL (7-17); Carbon Dioxide 21 mmol/L (22-30); Chloride 107 mmol/L (98-107); Estimated CRCL calculation 57 ml/min; Estimated Glomerular Filt Rate 50; Glucose 167 mg/dL (65-110); Magnesium 2.2 mg/dL (1.6-2.3); Potassium 3.8 mmol/L (3.4-5.0); Sodium 135 mmol/L (137-145)
[2022-03-25 06:16] LABS: Hematocrit 39.9 % (37.0-47.0); Mean Corpuscular HGB Conc 32.6 g/dl (32-36); Mean Corpuscular Hemoglobin 30.3 pg (26-34); Mean Platelet Volume 9.9 fl (7.4-10.4); Platelet Count Result 144 k/mm3 (150-375); Red Blood Count 4.29 M/mm3 (4.2-5.4); Red Cell Distribution Width 13.8 % (11.5-14.5); White Blood Count 10.1 K/mm3 (4.5-10.0)
--- NOTE | 2022-03-25 11:29 | PM.PNGS ---
Progress Note: A&P Assessment and Plan (1) Acute appendicitis: Qualifiers: Acute appendicitis type: with localized peritonitis Appendicitis abscess presence: unspecified whether abscess present Appendicitis gangrene presence: without gangrene Appendicitis perforation presence: without perforation Qualified Code(s): K35.30 - Acute appendicitis with localized peritonitis, without perforation or gangrene Code(s): K35.80 - Unspecified acute appendicitis Status: Acute Assessment and Plan: Doing well on POD#1. OK to discharge today. Discharge instructions discussed with patient. Follow up in 2 weeks. Subjective Subjective Date/Time Seen: 03/25/22 11:29 Interval history: Doing well on POD#1. Pain controlled. Tolerating diet. Exam GI: Inspection: non-distended and incision (intact with glue) GI Palp: Yes Soft to palpation and Yes Tenderness to palpation present (GI) (incisional) Objective Data Vital Signs Vital Signs: Vital Signs - 24 hr 03/24/22 13:30 03/24/22 13:45 03/24/22 14:00 Temperature 36.7 C Pulse Rate 104 H 100 100 Respiratory Rate 23 H 20 18 Blood Pressure 112/71 114/53 L 105/51 L Pulse Oximetry 98 100 97 Oxygen Delivery Simple Face Mask Simple Face Mask Simple Face Mask Oxygen Flow Rate 6 6 6 03/24/22 14:15 03/24/22 14:30 03/24/22 14:45 Temperature Pulse Rate 91 90 93 Respiratory Rate 17 20 17 Blood Pressure 117/52 L 99/48 L 101/52 L Pulse Oximetry 92 96 93 Oxygen Delivery Room Air Nasal Cannula Nasal Cannula Oxygen Flow Rate 2 2 03/24/22 15:00 03/24/22 15:45 03/24/22 21:51 Temperature 36.5 C 36.6 C 36.6 C Pulse Rate 90 84 88 Respiratory Rate 16 16 20 Blood Pressure 124/61 100/70 111/46 L Pulse Oximetry 94 91 95 Oxygen Delivery Oxygen Flow Rate 03/24/22 20:31 03/25/22 06:00 Temperature 37.6 C Pulse Rate 55 L Respiratory Rate 20 Blood Pressure 123/57 L Pulse Oximetry 87 L Oxygen Delivery Room Air Oxygen Flow Rate Intake/Output Intake/Output: Intake & Output 03/22/22 03/23/22 03/24/22 03/25/22 23:59 23:59 23:59 23:59 Intake Total 4070 50 Output Total 3200 1100 Balance 870 -1050 Meds/Results Medications: Active Medications Generic Name Dose Route Start Last Admin Trade Name Freq PRN Reason Stop Dose Admin Hydrocodone Bitart/Acetaminophen 1 tab 03/24/22 14:57 Hydrocodone/Acetaminophen (*Crx) 5-325 Mg Tablet PO Q4H PRN Pain Rated 4-6 Hydrocodone Bitart/Acetaminophen 1 tab 03/24/22 14:57 03/25/22 08:08 Hydrocodone/Acetaminophen (*Crx) 7.5-325 Mg Tablet PO 1 tab Q4H PRN Administration Pain Rated 7-10 Dextrose 12.5 gm 03/24/22 01:59 Dextrose 50% 25 Gm/50 Ml Syringe IV PUSH PRN PRN Hypoglycemia Protocol Glucagon 1 mg 03/24/22 01:59 Glucagon For Inj 1 Mg Vial IM PRN PRN Hypoglycemia Protocol Glucose 15 gm 03/24/22 01:59 Glucose Oral Gel 15 Gm Of Glucse In 37.5 Gm Tube PO PRN PRN Hypoglycemia Protocol Hydromorphone HCl 0.5 mg 03/24/22 14:57 Hydromorphone Hcl Inj (*Crx) 1 Mg/Ml Syr IV PUSH Q2H PRN Pain Rated 4-6 Hydromorphone HCl 1 mg 03/24/22 14:57 Hydromorphone Hcl Inj (*Crx) 1 Mg/Ml Syr IV PUSH Q2H PRN Pain Rated 7-10 Piperacillin/Tazobactam/Dextrose 3.375 gm in 50 mls @ 100 mls/hr 03/24/22 08:00 03/25/22 08:09 Zosyn 3.375 Gm/D5w 50ml Pm IVPB 100 mls/hr Q6H LENA Administration Dextrose 1,000 mls @ 100 mls/hr 03/24/22 01:59 Dextrose 5% 1,000 Ml IVPB PRN PRN Hypoglycemia Protocol Insulin Aspart 3 - 6 units 03/25/22 08:00 03/25/22 08:34 Insulin Aspart (*Bkc) 100 Units/Ml SUB-Q Not Given TIDWM LENA Protocol Ondansetron HCl 4 mg 03/24/22 01:08 Ondansetron Inj 4 Mg/2 Ml Vial IV PUSH Q4H PRN Nausea Radiology Results: ITS Impressions Abdomen/Pelvis CT 03/24/22 15:29 IMPRESSION: 1. Acute appendicitis. 2
[2022-03-25 11:51] LABS: Glucose Point of Care 191 mg/dl (65-105)
--- NOTE | 2022-03-25 12:25 | PM.DS ---
DS: Admitting Diagnosis Discharge Date 03/25/22 1226 Admitting Diagnosis Acute appendicitis Asymptomatic cholelithiasis DS: Discharge Diagnosis Discharge Diagnosis (1) Acute appendicitis: Qualifiers: Acute appendicitis type: with localized peritonitis Appendicitis abscess presence: unspecified whether abscess present Appendicitis gangrene presence: without gangrene Appendicitis perforation presence: without perforation Qualified Code(s): K35.30 - Acute appendicitis with localized peritonitis, without perforation or gangrene Code(s): K35.80 - Unspecified acute appendicitis Status: Acute Assessment and Plan: Patient presented to the hospital with c/o abdominal pain and CT abdomen and pelvis consistent with acute appendicitis (2nd episode, 1st episode was on 08/29/21). general surgeon consult Dr. Tao for evaluation. She underwent laparoscopic appendectomy on 03/24/22. Continue antibiotics: Zosyn 3.375 mg Q6 IV pre and postop. She was transitioned to Augmentin PO BID at discharge. Continue IV fluids: Normal saline 125cc/hr while NPO. Continue pain control: P.r.n. dilaudid nausea: IV Zofran PRN (2) Asymptomatic cholelithiasis: Code(s): K80.20 - Calculus of gallbladder without cholecystitis without obstruction Status: Acute Assessment and Plan: Possible acute cholecystitis versus asymptomatic cholelithiasis. She endorsed pain radiating to her upper, middle back and mild RQU pain. patient has mild wall thickening and known gallstones. Patient's symptoms are lower abdominal more consistent with appendicitis. General Surgery consulted and appreciate recommendations. Abd pain improved after surgery. No RUQ pain on exam. Continue conservative monitoring of cholelithiasis. (3) Peripheral autonomic neuropathy due to diabetes mellitus: Code(s): E11.43 - Type 2 diabetes mellitus with diabetic autonomic (poly)neuropathy Status: Chronic Assessment and Plan: A1c 8%. Held Invokamet and Ozempic while NPO and inpatient, but resumed on discharge. Accu-checks Q6 hours while NPO with sliding scale insulin and hypoglycemia protocol Continued gabapentin. (4) Hypertension: Onset Date: Unknown Qualifiers: Hypertension type: primary hypertension Qualified Code(s): I10 - Essential (primary) hypertension Code(s): I10 - Essential (primary) hypertension Status: Chronic Assessment and Plan: Chronic, stable. continue lisinopril (5) Hyperlipidemia: Onset Date: Unknown Qualifiers: Hyperlipidemia type: mixed hyperlipidemia Qualified Code(s): E78.2 - Mixed hyperlipidemia Code(s): E78.5 - Hyperlipidemia, unspecified Status: Chronic Assessment and Plan: Chronic, stable. Continue simvastatin. (6) Hypothyroidism: Qualifiers: Hypothyroidism type: postoperative Qualified Code(s): E89.0 - Postprocedural hypothyroidism Code(s): E03.9 - Hypothyroidism, unspecified Status: Chronic Assessment and Plan: Chronic, continue levothyroxine at home dose DS: Summary Hospital Course Reason for hospitalization: abdominal pain Hospital Course: Jennifer Ibrahim is an 66-year-old female with type 2 diabetes, peripheral neuropathy, hypothyroidism, essential hypertension, and hyperlipidemia who presented to ED with complaints of abdominal pain.? She was in her usual state of health until she developed significant lower quadrant abdominal pain radiating to her back starting on the day of admission? Of note, she saw her PCP last Friday and was not having symptoms at that time.? Patient has history of appendicitis treated with IV antibiotics 08/29/21.? She stated her diabetes is under control, on numerous agents, was about to start Ozempic.? She has a service dog for her diabetes.? Patient has no concerns at home, independent, active. In the ED:? Abdominal CT scan concerning for
== END 2022-03-25 14:05 | disposition home or self-care (01) ==
LOC: ANHED 03-24 01:08 → ANH3MEDSUR 03-24 01:50
PROVIDERS: Emergency Medicine; Nurse Practitioner Family; Surgery; Admitting Provider Student in an Organized Health Care Education/Training Program; Emergency Provider Nurse Practitioner Family; PCP Physician Assistant; Visit Provider Chiropractor
PROC: 0DTJ4ZZ Resection of Appendix, Percutaneous Endoscopic Approach (ICD-10-PCS; CPT 44970; principal; 2022-03-24 11:30)
DX: K35.30 Acute appendicitis with localized peritonitis, without perforation or gangrene (principal); K80.20 Calculus of gallbladder without cholecystitis without obstruction; E11.43 Type 2 diabetes mellitus with diabetic autonomic (poly)neuropathy; I10 Essential (primary) hypertension; E78.5 Hyperlipidemia, unspecified; E03.9 Hypothyroidism, unspecified; G62.9 Polyneuropathy, unspecified; F10.90 Alcohol use, unspecified, uncomplicated; Z68.41 Body mass index [BMI] 40.0-44.9, adult; Z79.82 Long term (current) use of aspirin; Z79.85 Long-term (current) use of injectable non-insulin antidiabetic drugs; Z79.899 Other long term (current) drug therapy; Z83.3 Family history of diabetes mellitus; Z82.49 Family history of ischemic heart disease and other diseases of the circulatory system
CPT/HCPCS: 44970; 36415; 74177; 80048; 80053; 81001; 82948; 83036; 83605; 83690; 83735; 85025; 85027; 88304; 96361; 96365; 96375; 99285; A9270; G0378; J0131; J1170; J1815; J2250; J2405; J2543; J2704; J2710; J2765; J3010; J7030; J7120; Q9967

== ENCOUNTER 2022-05-28 08:59 | Outpatient (CLI) | payer MEDICARE, SELFPAY ==
--- NOTE | 2022-05-28 09:51 | ECG_ITS ---
Measurements Intervals [place] Rate: 100 P: 60 MS: 148 QRS: 10 QRSD: 91 T: 32 QT: 350 QTc: 452 Interpretive Statements SINUS TACHYCARDIA VENTRICULAR PREMATURE COMPLEX LOW QRS VOLTAGE IN PRECORDIAL LEADS CONSIDER INFERIOR INFARCT, AGE INDETERMINATE BORDERLINE ST-T WAVE ABNORMALITY- HIGH LATERAL LEADS BASELINE ARTIFACT- I, II, III, AVR, AVL, AVF ABNORMAL ECG NO PREVIOUS ECG AVAILABLE FOR COMPARISON Electronically Signed On 05-28-2022 10:19:13 ENCEPHALOGRAPHER by Roe Calhoun D.O.
[2022-05-28 10:19] LABS: Alanine Aminotransferase 26 U/L (6-35); Albumin Level 3.9 g/dL (3.5-5.1); Alkaline Phosphatase 98 U/L (38-126); Amylase 124 U/L (30-110); Aspartate Amino Transferase 24 U/L (14-36); Bilirubin,Total 0.6 mg/dL (0.2-1.3); Lipase 180 U/L (23-300)
[2022-05-28 10:20] LABS: Anion Gap 8 mmol/L (8-16); Blood Urea Nitrogen 15 mg/dL (7-17); Calcium 9.1 mg/dL (8.4-10.2); Carbon Dioxide 28 mmol/L (22-30); Chloride 105 mmol/L (98-107); Estimated Glomerular Filt Rate > 60; Glucose 135 mg/dL (65-110); Potassium 4.5 mmol/L (3.4-5.0); Sodium 141 mmol/L (137-145)
== END 2022-05-28 09:00 | disposition home or self-care (01) ==
LOC: ANHSURGERY 09:35
PROVIDERS: Anesthesiology; PCP Physician Assistant; Visit Provider Surgery
DX: Z01.812 Encounter for preprocedural laboratory examination (principal); Z01.810 Encounter for preprocedural cardiovascular examination; K80.20 Calculus of gallbladder without cholecystitis without obstruction; E11.9 Type 2 diabetes mellitus without complications; I10 Essential (primary) hypertension
CPT/HCPCS: 36415; 80048; 80076; 82150; 83690; 86850; 86900; 86901; 93005

== ENCOUNTER 2022-05-31 03:01 | Day surgery (SDC) | payer MEDICARE, SELFPAY ==
[2022-05-24 11:11] VITALS: BMI 39.2
--- NOTE | 2022-05-24 11:34 | PC.NURSE ---
Report to the Outpatient Waiting Room, entrance under the green pavilion located off [facility], at time _10:00AM on date __05/31/22 . Planned Procedure Time: __12:00PM . Time changes happen often and if your time is changed the preop area will call you the afternoon before. - You and your visitor will be asked to self-screen and do not enter if you have any COVID symptoms. - Only one visitor is requested with a max of two and NO children visitors are allowed at this time. - The patient visitor may be requested to leave or wait in car when not with patient due to distancing restrictions. - A mask is optional within the hospital. Patients may have clear liquids (water, carbonated beverages, clear teas, apple juice) until 3 hours prior to surgery with a maximum of 20 ounces. - No food from midnight until time of surgery Take the following medications with a SIP of water the morning of surgery: ___GABAPENTIN NEEDED, LEVOTHYROXINE Medications to discontinue per physician __HOLD ALL VITAMINS/SUPPLEMENTS 3 DAYS PRE-OP Date to take last dose____05/27/22 Please no make-up, nail azeri, hairspray, perfume, deodorant, or body powder the day of surgery. No jewelry (including any body piercings) or valuables the day of surgery, leave them at home. Please take a shower or bath the night before, or the morning of, surgery with an antibacterial soap. Wear comfortable, loose fitting clothing. Children are encouraged to wear pajamas. - Jewelry must be removed prior to entering the operating room. Rings and piercings that are not removed may be cut off. - The hospital will not accept responsibility for valuables. - Please leave all valuables, including medications, at home the day of surgery. If you are going home after surgery, a licensed tow driver must drive you home. - NO public transportation without another adult if you receive anesthesia. - We recommend that an adult stay with you for 24 hours following discharge. - We also recommend that you do not drive, make important decision, drink alcoholic beverages, or take any drugs that were not prescribed by your health care provider for at least 24 hours after your discharge time. Follow any additional instructions given to you from your surgeon. HIBICLENS SHOWER ON MORNING OF SURGERY If you or anyone in your household have experienced Covid symptoms in the past week, please notify your surgeon or the nurse liaison at the phone number below for possible testing. Telephone instructions given to ___PATIENT and asked if any additional questions and then verbalized understanding. Patient advised to call surgeon office or pre surgery nurse liaison [phone] if any additional questions.
--- NOTE | 2022-05-30 13:54 | WPDANESEPPF ---
Anes - Initial Pre Proc Eval Procedure: Operation Date: 05/31/22 12:00 Proposed Procedures p Laparoscopic Cholecystectomy, Possible Open - Moses Tao DO Date/Time: 05/30/22 13:54 Surgeon: Moses Tao DO Pre Op Diagnosis: Symptomatic Cholelithiasis Patient Data Age: 67 Gender: F Height: 1.65 m Weight: 107 kg Allergies Allergy/AdvReac Type Severity Reaction Status Date / Time No Known Allergies Allergy Verified 05/24/22 11:03 Home Medications Medication Instructions Recorded Confirmed Type canagliflozin 150 mg-metformin 1 tablet PO BID 08/29/21 05/24/22 History 1,000 mg tablet (Invokamet) gabapentin 300 mg capsule 600 mg PO BID 08/29/21 05/24/22 History levothyroxine 100 mcg tablet 100 mcg PO QAM 08/29/21 05/24/22 History lisinopril 2.5 mg tablet 2.5 mg PO QPM 08/29/21 05/24/22 History simvastatin 20 mg tablet 20 mg PO DAILY 08/29/21 05/24/22 History semaglutide 2 mg/dose (8 mg/3 mL) 2.5 mg subcut WE 03/24/22 05/24/22 History subcutaneous pen injector (Ozempic) chlorhexidine gluconate 4 % See Rx Instructions .Route 04/08/22 05/24/22 Rx topical liquid (Hibiclens) .COMPLEX #118 mL Vivscal 1 tab-cap PO BID 05/24/22 05/24/22 History glimepiride 1 mg tablet 1 mg PO BID 05/24/22 05/24/22 History biqcodvhqlhx-La-ezwp-minerals 1 tablet PO DAILY 05/24/22 05/24/22 History Patient hx anesthesia problems: none Family hx anesthesia problems: none Results Review: All pre-operative results and documents have been reviewed as part of the pre-operative evaluation. [facility] Past Medical History Medical History (Updated 05/30/22 @ 13:55 by Isreal Thornton MD) Asymptomatic cholelithiasis Diabetes mellitus Hyperlipidemia (Unknown) Hypertension (Unknown) Hypothyroidism Peripheral autonomic neuropathy due to diabetes mellitus Symptomatic cholelithiasis Surgical History Surgical History History of 2 sections History of laparoscopic appendectomy 03/24/22 History of thyroid surgery Family History Family History Father Diabetes mellitus Diverticulitis Hypertension Grandparent Diabetes mellitus Family history of malignant neoplasm Thyroid cancer Mother Family history of malignant neoplasm Social History Social History Smoking packs per day: 0.2 Smoking cigarettes per day: 4.0 Years smoked: 2 Smoking pack-years: 0.40 Smoking status: Former smoker Tobacco type: cigarettes Smoking end date: 11/03/75 Alcohol intake: current Drinks per week: 1 Substance use: never Lack of Transportation: No Lack of Food: Never True Current Housing: I Have Housing Concerned About Future Housing: No Difficulty Paying Gas/Electric Bills: YES Difficulty Paying for Meds: No Currently Unemployed: No Education: High School Diploma/GED Difficulty w/ Childcare or Family Care: No Living arrangements: with family Additional living arrangements comments: [facility] Spiritual care concerns: No Anes - Eval Final PreProcedure Day of Procedure 05/30/22 13:54 Patient weight: morbidly obese Heart: regular rate and rhythm Lungs: clear to auscultation Airway: Mallampati scale class II Neurological: alert and oriented Last oral intake: >/= 8 hours ASA classification: III Emergent: yes Anesthetic plan: proceed Anesthesia type and monitoring: general ETT and standard monitoring Results Review: All pre-operative results and documents have been reviewed as part of the pre-operative evaluation. Informed Consent: The patient's anesthetic plan and its attendant risks and benefits were discussed with the patient/family/POA. Questions were solicited and answers provided to the satisfaction of the patient/family/POA.
[2022-05-31] VITALS (8 sets, daily range): BP systolic 105–140; BP diastolic 54–96; PULSE 77–101; RESP 10–20; TEMP 36.6; O2SAT 96–100
[2022-05-31] MEDS: LACTATED RINGERS 1,000 ML 30 ML IV CONT (11:25)
[2022-05-31] MEDS: ACETAMINOPHEN 500 MG TABLET 1000 MG PO (11:37)
[2022-05-31] MEDS: KETOROLAC 15 MG/ML VIAL (*BKC) IV PUSH (11:37)
--- NOTE | 2022-05-31 11:40 | SUR.PREOP ---
PATIENT UPDATED ON TIME DELAY
[2022-05-31 11:43] LABS: Glucose Point of Care 102 mg/dl (65-105)
--- NOTE | 2022-05-31 12:20 | WPDHPUPDATE1 ---
History and Physical Update Update Date/Time: 05/31/22 12:20 History and Physical has been reviewed, including an updated exam of the patient. There are NO changes in the patient's condition. Risks, benefits, and alternatives have been discussed and questions answered. Patient agrees to proceed with procedure.
--- NOTE | 2022-05-31 12:20 | PM.IMHP ---
H&P: HPI History of Present Illness Date/Time: 05/31/22 12:20 Chief Complaint: symptomatic cholelithiasis Narrative: 67 yo woman presents for lap veronica. She denies any changes since last seen in office. Review of Systems Review of Systems: All systems reviewed & are unremarkable except as noted in HPI and below Constitutional: Constitutional: Denies chills, Denies fever(s), Denies headache(s) and Denies weight loss Eyes: Eyes: Denies change in vision ENT: Denies dizziness, Denies headache(s), Denies neck mass and Denies throat swelling Cardiovascular: Cardiovascular: Denies chest pain, Denies lightheadedness and Denies dyspnea Respiratory: Respiratory: Denies cough, Denies dyspnea and Denies wheezing Gastrointestinal: Gastrointestinal: Denies abdominal pain, Denies change in bowel habits, Denies nausea and Denies vomiting Genitourinary: Genitourinary: Denies hematuria and Denies dysuria Musculoskeletal: Musculoskeletal: Reports as per HPI Integumentary/Breasts: Skin/Breast: Reports as per HPI Neurologic: Denies dizziness and Denies headache(s) Allergic/Immunologic: Allergic/Immunologic: Denies throat swelling and Denies wheezing [facility] Past Medical History Medical History (Updated 05/30/22 @ 13:55 by Isreal Thornton MD) Asymptomatic cholelithiasis Diabetes mellitus Hyperlipidemia (Unknown) Hypertension (Unknown) Hypothyroidism Peripheral autonomic neuropathy due to diabetes mellitus Symptomatic cholelithiasis Surgical History Surgical History History of 2 sections History of laparoscopic appendectomy 03/24/22 History of thyroid surgery Family History Family History Father Diabetes mellitus Diverticulitis Hypertension Grandparent Diabetes mellitus Family history of malignant neoplasm Thyroid cancer Mother Family history of malignant neoplasm Social History Social History Smoking packs per day: 0.2 Smoking cigarettes per day: 4.0 Years smoked: 2 Smoking pack-years: 0.40 Smoking status: Former smoker Tobacco type: cigarettes Smoking end date: 11/03/75 Alcohol intake: current Drinks per week: 1 Substance use: never Lack of Transportation: No Lack of Food: Never True Current Housing: I Have Housing Concerned About Future Housing: No Difficulty Paying Gas/Electric Bills: YES Difficulty Paying for Meds: No Currently Unemployed: No Education: High School Diploma/GED Difficulty w/ Childcare or Family Care: No Living arrangements: with family Additional living arrangements comments: [facility] Spiritual care concerns: No Meds Home Medications and Allergies Home Medications Medication Instructions Recorded Confirmed Type canagliflozin 150 mg-metformin 1 tablet PO BID 08/29/21 05/31/22 History 1,000 mg tablet (Invokamet) gabapentin 300 mg capsule 600 mg PO BID 08/29/21 05/31/22 History levothyroxine 100 mcg tablet 100 mcg PO QAM 08/29/21 05/31/22 History lisinopril 2.5 mg tablet 2.5 mg PO QPM 08/29/21 05/31/22 History simvastatin 20 mg tablet 20 mg PO DAILY 08/29/21 05/31/22 History semaglutide 2 mg/dose (8 mg/3 mL) 2.5 mg subcut WE 03/24/22 05/31/22 History subcutaneous pen injector (Ozempic) chlorhexidine gluconate 4 % See Rx Instructions .Route 04/08/22 05/31/22 Rx topical liquid (Hibiclens) .COMPLEX #118 mL Vivscal 1 tab-cap PO BID 05/24/22 05/31/22 History glimepiride 1 mg tablet 1 mg PO BID 05/24/22 05/31/22 History wvccytzytylf-Cw-iyhv-minerals 1 tablet PO DAILY 05/24/22 05/31/22 History Allergies Allergy/AdvReac Type Severity Reaction Status Date / Time No Known Allergies Allergy Verified 05/31/22 11:44 Vital Signs Vital Signs - 24 hr 05/31/22 10:24 Temperature 36.6 C Pulse Rate 101 H Respiratory Rate 20 Blood Pressure 119/96
[2022-05-31] MEDS: ceFAZolin 2 GM/D5W 50 ML 2 GM/50 ML BAG IVPB (13:15)
[2022-05-31] MEDS: BUPIVACAINE/EPINEPHRINE 0.5% 30 ML VIAL INFILTRATE (13:52)
--- NOTE | 2022-05-31 14:00 | W.PM.PROC2 ---
Procedure Note - Detailed Date of Procedure 05/31/22 Pre-op Diagnosis Symptomatic Cholelithiasis Post-op Diagnosis Same Procedure Performed Laparoscopic Cholecystectomy Surgeon Moses Tao, DO Anesthesia General and Local (0.5% bupivacaine) Indications This is a 67-year-old woman who presents with intermittent upper abdominal pain after eating for the past several years. Her symptoms have been more frequent recently. She was recently hospitalized for acute appendicitis and cholelithiasis was noted at that time. Discussions were made with the patient about treatment options and decision was made to proceed with laparoscopic cholecystectomy, possible open. Findings Laparoscopic cholecystectomy was performed. The gallbladder had some chronic wall thickening and contained 1 medium-sized stone. The cystic duct appeared normal in size. No other intra-abdominal abnormalities were noted. The gallbladder was removed and sent to the lab for pathology. Description of Procedure Procedure as well as risks, benefits, and alternatives were discussed with patient. Written consent was obtained and placed in chart prior to procedure. The patient was brought back to surgical suite. Patient was placed in supine position on operating table. Time-out was done to confirm patient and procedure. Patient was then intubated by the anesthesia department. Abdomen was prepped and draped in sterile fashion using chlorhexidine prep. 0.5% bupivacaine with epinephrine was infiltrated at each site of incision. A 5 millimeter incision was made near the umbilicus, and a 5 millimeter Optiview trocar was advanced through the abdominal layers under direct visualization. Once inside the abdominal cavity, carbon dioxide was insufflated to create a pneumoperitoneum. The camera was inserted and the abdomen was inspected. No immediate abnormalities were identified. The patient was placed in reverse Trendelenburg position and rotated slightly to the left. An 11 millimeter incision was made in the subxiphoid region, and an 11 millimeter trocar was inserted under direct visualization. Two 5 millimeter incisions were made in the right upper quadrant, and two 5 millimeter trocars were inserted under direct visualization. The gallbladder was identified and grasped at the fundus and retracted superiorly. It was then grasped at the infundibulum retracted laterally. Careful dissection around the neck of the gallbladder was performed using blunt dissection with a [place] grasper and hook electrocautery. The cystic duct was identified, and a window was created behind it. The cystic artery was also identified and a window was created behind it. The critical view of safety was identified, visualizing the cystic duct running directly into the neck of the gallbladder, and the cystic artery running directly into the wall of the gallbladder. A 5 millimeter clip chronograph operator was then used to place 2 clips proximally and 1 clip distally on both the cystic duct and cystic artery. They were then both transected using endoscopic scissors. Once safely away from the violetta hepatitis, the gallbladder was dissected free from the liver bed using hook electrocautery. Hemostasis was achieved along the way. The gallbladder was removed completely and then removed through the subxiphoid port. The liver bed was then inspected. Hemostasis appeared adequate, and our clips appeared secure. The area was gently irrigated with sterile saline. No other abnormalities were seen. The patient was flattened out in bed, and 1 final inspection was made around the abdominal cavity. The subxiphoid port was removed, and a Jaskaran Windy cone was used to approximate the fascia with an 0-Vicryl simple interrupted suture. The remaining ports were then removed under direct visualization, the camera was removed, and the pneumoperitoneum was released. The skin of the incisions was approximated using 4-0 Monocryl subcuticular sutures.
[2022-05-31 14:25] LABS: Glucose Point of Care 126 mg/dl (65-105)
--- NOTE | 2022-05-31 14:36 | SUR.PHASEI ---
1425 - accucheck was 126 when checked on arrival in pacu.
== END 2022-05-31 15:40 | disposition home or self-care (01) ==
PROVIDERS: PCP Physician Assistant; Visit Provider Surgery
PROC: 0FT44ZZ Resection of Gallbladder, Percutaneous Endoscopic Approach (ICD-10-PCS; CPT 47562; principal; 2022-05-31 12:00)
DX: K80.10 Calculus of gallbladder with chronic cholecystitis without obstruction (principal); E78.5 Hyperlipidemia, unspecified; I10 Essential (primary) hypertension; E03.9 Hypothyroidism, unspecified; E11.42 Type 2 diabetes mellitus with diabetic polyneuropathy; Z79.84 Long term (current) use of oral hypoglycemic drugs; Z79.899 Other long term (current) drug therapy; Z87.891 Personal history of nicotine dependence; E66.01 Morbid (severe) obesity due to excess calories; Z68.39 Body mass index [BMI] 39.0-39.9, adult
CPT/HCPCS: 47562; 36415; 80048; 80076; 82150; 82948; 83690; 86850; 86900; 86901; 88304; 93005; A9270; J0690; J1100; J1885; J2405; J2704; J2710; J3010; J7030; J7120

== ENCOUNTER 2024-08-19 11:34 | Outpatient (CLI) | payer MEDICARE, SELFPAY ==
--- NOTE | ~2024-08-19 | MM_ITS ---
EXAMINATION: MM screening ady BI w tiana HISTORY: Screening TECHNIQUE: Craniocaudal and mediolateral oblique 3-D tomosynthesis images were obtained and synthetic 2-D images were generated. CAD analysis was submitted and interpreted. COMPARISON: Comparison to multiple prior studies sequentially, with oldest reviewed study dated 05/2013. BREAST PARENCHYMAL COMPOSITION: Not dense: There are scattered areas of fibroglandular density. FINDINGS: There is no evidence of suspicious mass, calcification, or architectural distortion to sugg est malignancy in either breast. There has been no suspicious interval change. IMPRESSION: 1. No mammographic evidence of malignancy. 2. Recommend routine screening mammography in one year. BI-RADS Category 1: Negative Reviewed, dictated and finalized at location B.
== END 2024-08-19 11:35 | disposition home or self-care (01) ==
LOC: MICIMG 11:34
PROVIDERS: PCP Physician Assistant; Visit Provider Physician Assistant
DX: Z12.31 Encounter for screening mammogram for malignant neoplasm of breast (principal)
CPT/HCPCS: 77063; 77067

== ENCOUNTER 2025-02-11 10:20 | Outpatient (CLI) | payer MEDICARE, SELFPAY ==
--- NOTE | ~2025-02-11 | DEXA_ITS ---
Bone Density Report Name: LETITIA BERMUDEZ Age: 69 Sex: Female Ethnicity: White Date of : 1955 Indication: osteopenia; parental hip fracture; height loss; rheumatoid arthritis; Referring Provider: CHRISTY, TATYANA Study: Bone densitometry was performed. Exam Date: February 11, 2025 Accession number: [id number] Bone Density: Region BMD T-score Z-score Classification AP Spine(L2, L3, L4) 0.931 -1.3 0.7 Osteopenia Femoral Neck (Left) 0.605 -2.2 -0.5 Osteopenia Total Hip (Left) 0.786 -1.3 0.2 Osteopenia Femoral Neck (Right) 0.569 -2.5 -0.8 Osteoporosis Total Hip (Right) 0.765 -1.4 0.0 Osteopenia Total Hip Mean 0.776 -1.4 0.1 Osteopenia World Health Organization criteria for BMD impression classify patients as: Normal (T-score at or above -1.0), Osteopenia (T-score between -1.0 and -2.5), or Osteoporosis (T-score at or below -2.5). 10-year Fracture Risk: FRAX not reported because: Some T-score for Spine Total or Hip Total or Femoral Neck at or below -2.5 Previous Exams: -- Region Exam Age BMD T-score BMD Change BMD Change Date g/cm2 vs Baseline vs Previous -- AP Spine (L2-L4) 02/11/2025 69 0.931 -1.3 -8.7%# -8.7%# 06/09/2009 54 1.020 -0.5 Total Hip(Left) 02/11/2025 69 0.786 -1.3 0.1%# 0.1%# 06/09/2009 54 0.785 -1.3 Total Hip(Right) 02/11/2025 69 0.765 -1.4 -2.6%# -2.6%# 06/09/2009 54 0.786 -1.3 -- *Denotes significance at 95% confidence level, LSC for AP Spine = 0.022 g/cm2, LSC for Total Hip = 0.027 g/cm2 # Denotes dissimilar scan types or analysis methods Clinical Information Provided by Patient: Parent has had a hip fracture Has rheumatoid arthritis Patient maximum height was 66 Menopause Age: 53 No regular weight bearing exercise Drinks caffeinated beverages Onset of menses at age 13 Number of children 2 Impression: The patient has osteoporosis, based on the Right Femoral Neck T-score. The patient has risk factors, including: parental hip fracture. Unable to evaluate interval change due to the use of different scan modes. Discussion: INCREASED RISK OF FRACTURE. BONE DENSITY IS UNDESIRABLY LOW AT ONE OR MORE SKELETAL SITES, CONSISTENT WITH POSTMENOPAUSAL OSTEOPOROSIS. This patient's lowest T-score meets the World Health Organization's (WHO) criteria for osteoporosis at one or more sites (T-score -2.5 or below). In untreated patients, the risk of osteoporotic fracture increases approximately two-fold for each 1.0 SD decrease in T-score. Low bone density is not the only risk factor for fracture; also consider factors such as patient's age, frailty or poor health, risk of falling, risk of injury, previous osteoporotic fracture, family history of osteoporosis, cigarette smoking, low body weight, etc. Not everyone with low bone mineral density has osteoporosis; osteomalacia and other metabolic bone disorders should also be considered. Patients who have osteoporosis should be evaluated for specific diseases and conditions (secondary causes) that may cause or contribute to bone loss. The [place] Association of Clinical Endocrinologists (AACE) and National Osteoporosis Foundation (NOF) recommend pharmacologic intervention for all postmenopausal women whose T-score is in this range. The patient should follow a healthful lifestyle (good nutrition with adequate calcium and vitamin D, and appropriate weight-bearing exercise). Follow-Up: Consider a repeat BMD and Vertebral Fracture Assessment (VFA) exam in 2 years or sooner if medically necessary, to reassess this patient's status. Reported by: SONALI on 02/11/2025 10:46:00 AM. Reviewed, dictated and finalized at location A.
== END 2025-02-11 10:21 | disposition home or self-care (01) ==
LOC: MICIMG 10:22
PROVIDERS: PCP Physician Assistant; Visit Provider Physician Assistant
DX: Z78.0 Asymptomatic menopausal state (principal); M85.88 Other specified disorders of bone density and structure, other site; M85.852 Other specified disorders of bone density and structure, left thigh; M85.851 Other specified disorders of bone density and structure, right thigh; M81.0 Age-related osteoporosis without current pathological fracture
CPT/HCPCS: 77080

== ENCOUNTER 2025-03-15 10:59 | Emergency (ER) | payer MEDICARE, SELFPAY ==
[2025-03-15] VITALS (15 sets, daily range): BP systolic 98–149; BP diastolic 71–104; PULSE 85–115; RESP 16–28; O2SAT 95–100
--- NOTE | ~2025-03-15 | XR_ITS ---
EXAMINATION: XR chest 2V DATE: 03/15/2025 11:51 INDICATION: Shortness of breath TECHNIQUE: PA and lateral views of the chest were obtained. COMPARISON: None FINDINGS: The lungs are clear with no focal airspace opacities, pulmonary edema, pleural effusion or pneumothorax. The cardiomediastinal silhouette is normal. Moderate thoracic spondylosis. Cholecystectomy clips in right upper quadrant. IMPRESSION: 1. No acute cardiopulmonary disease. Reviewed, dictated and finalized at location A. [employer] INFRASTRUCTURE ENGINEER
--- NOTE | 2025-03-15 11:00 | ECG_ITS ---
Test Date: 2025-03-15 11:10:43 Measurements Intervals [place] Rate: 109 P: 4 SD: 142 QRS: 20 QRSD: 74 T: 94 QT: 317 QTc: 427 Interpretive Statements SINUS TACHYCARDIA WITH FREQUENT VENTRICULAR PREMATURE COMPLEXES LOW QRS VOLTAGE IN PRECORDIAL LEADS [QRS DEFLECTION < 1.0 mV IN CHEST LEADS] No previous ECG available for comparison Electronically Signed On 03-15-2025 18:06:04 DIGESTER HAND by Pepito Kelly M.D.
[2025-03-15] MEDS: ASPIRIN 81 MG CHEWABLE TABLET 324 MG PO (11:29)
[2025-03-15 11:30] LABS: Hematocrit 44.3 % (37.0-47.0); Hemoglobin 14.3 g/dL (12.0-15.0); Immature Granulocyte Percent A 0.2 % (0-0.5); Lymphocytes Absolute Auto 0.78 K/mm3 (0.9-3.2); Mean Corpuscular HGB Conc 32.3 g/dl (32-36); Mean Corpuscular Hemoglobin 29.4 pg (26-34); Mean Corpuscular Volume 91.0 fl (80-100); Nucleated Red Blood Cells Absolute Auto 0.000 K/mm3 (0.0-0.012); Nucleated Red Blood Cells Perc 0.0 % (0.0-0.2); Platelet Count Result 181 k/mm3 (150-375); Red Blood Count 4.87 M/mm3 (4.2-5.4); White Blood Count 6.3 K/mm3 (4.5-10.0)
[2025-03-15 11:44] LABS: INR 1.0; Prothrombin Time 13.4 Seconds (11.1-14.7)
--- OUTSIDE RECORDS SUMMARY | 2025-03-15 11:44 | XMS_ITS | Clinical Summary ---
Author Organization [facility] [employer] Address [address] [place] [address] Care Team Providers Care Scholarship Counselor Name Role Phone Laura Rodas Primary Care Pr ovider Source Comments [facility],non-owned Affiliates and Associated Physician Practices is amultiple site organization consisting of ambulatory clinics and hospital sitesin [place], [place], [place] and [place]. This disclosure is being madepursuant to the Care Everywhere program and may not contain all information available regarding this patient. Last updated 18.[facility] [employer] Social History Tobacco Use Types Packs/Day Years Used Date Smoking Tobacco: Never Assessed Comments Unknown Sex and Gender Information Value Date Recorded Sex Assigned at Not on file Legal Sex Female 6:20 AM RN WOUND CARE Gender Identity Not on file Sexual Orientation Not on file Plan of Treatment Health Maintenance Due Date Last Done Comments BONE DENSITY TESTING 1955 COLOGUARD (AGES 45-75) - COL ON CA SCREENING 1955 COLON MONITORING 1955 COLONOSCOPY - COLON CA SCREENING 1955 CT COLONOGRAPHY - COLON CA SCREENING 1955 Colorectal Cancer Screening 1955 FIT - COLON CA SCREENING 1955 FLEX SIG - COLON CA SCREENING 1955 LIPID TESTING 1955 MAMMOGRAM 1955 HEPATITIS C SCREENING 03/22/1974 DTAP/TDAP/TD VACCINES (1 - Tdap) 1975 PNEUMOCOCCAL VACCINE 50+ (1 of 1 - PCV) 2006 ZOSTER VACCINE (1 of 2) 2006 DEPRESSION SCREENING 05/05/2024 COVID-19 VACCINE (1 - 2023-2 5 season) 2025 INFLUENZA VACCINE (#1) 2025 Respiratory Syncytial Virus (RSV) Vaccine Pt: or over 60 yrs (1 - 1-dose 75+ series) 2031 HEPATITIS B VACCINE Aged Out No longe r eligible based on patient's age to complete this topic HIB VACCINE Aged Out No longer eligi ble based on patient's age to complete this topic HPV VACCINE Aged Out No longer eligi ble based on patient's age to complete this topic MENINGOCOCCAL (Group B) VACC INE SHARED DECISION-MAKING Aged Out No longer eligibl e based on patient's age to complete this topic MENINGOCOCCAL GROUPS A/C/Y/W VACCINE Aged Out No longer eligible b ased on patient's age to complete this topic Care Teams Scholarship Counselor Relationship Specialty Start Date End Date Laura Rodas PA [address] [place] [id number] PCP - General 04/08/22
[2025-03-15 11:45] LABS: Partial Thromboplastin Time 28.9 Seconds (22.3-36.8)
[2025-03-15 11:46] LABS: Alanine Aminotransferase 26 U/L (6-35); Albumin Level 4.4 g/dL (3.5-5.1); Alkaline Phosphatase 88 U/L (38-126); Anion Gap 10 mmol/L (4-12); Aspartate Amino Transferase 28 U/L (14-36); Bilirubin,Total 0.6 mg/dL (0.2-1.3); Blood Urea Nitrogen 18 mg/dL (7-17); Calcium 9.5 mg/dL (8.4-10.2); Carbon Dioxide 24 mmol/L (22-30); Chloride 106 mmol/L (98-107); Estimated CRCL calculation 50 ml/min; Estimated Glomerular Filt Rate 46; Glucose 137 mg/dL (65-110); Lipase 475 U/L (23-300); Potassium 4.4 mmol/L (3.4-5.0); Sodium 140 mmol/L (137-145); Total Protein 7.6 g/dL (6.3-8.2)
--- NOTE | 2025-03-15 12:20 | PC.NURSE ---
Pt states ASA helped her pain but still feels slightly SOB.
--- OUTSIDE RECORDS SUMMARY | 2025-03-15 12:21 | XMS_ITS | Clinical Summary ---
Author Organization [facility] [employer] Address [address] [place] [address] Care Team Providers Care Coil Connector Name Role Phone Laura Rodas Primary Care Pr ovider Source Comments [facility],non-owned Affiliates and Associated Physician Practices is amultiple site organization consisting of ambulatory clinics and hospital sitesin [place], [place], [place] and [place]. This disclosure is being madepursuant to the Care Everywhere program and may not contain all information available regarding this patient. Last updated 18.[facility] [employer] Social History Tobacco Use Types Packs/Day Years Used Date Smoking Tobacco: Never Assessed Comments Unknown Sex and Gender Information Value Date Recorded Sex Assigned at Not on file Legal Sex Female 6:20 AM CATALOG LIBRARIAN Gender Identity Not on file Sexual Orientation [...] age to complete this topic Care Teams Coil Connector Relationship Specialty Start Date End Date Laura Rodas PA [address] [place] [id number] PCP - General 04/08/22
--- NOTE | 2025-03-15 12:23 | ED.GENADULT ---
HPI - General Adult General Chief complaint: Shortness of Breath/Dyspnea Stated complaint: sob, palpitations Time Seen by Provider: 03/15/25 11:55 History of Present Illness HPI narrative: 69-year-old female present to the emergency department for evaluation for chest pressure and some shortness of breath. Patient reports for the last 3 weeks she has had some worsening shortness of breath and patient is being worked up by her primary care physician for this. Patient does have an outpatient Lexiscan, EKG and echocardiogram scheduled. Patient was told if she has any worsening symptoms she is to present to the ED for further evaluation. Patient states today she had onset of some chest pressure and felt like she was having rapid heart rate. Upon arrival emergency department patient does have some sinus tachycardia and at time of initial evaluation patient states that she does feel improved at this time. Patient denies any current chest pressure chest pain. Patient states her shortness of breath is also not affecting her at this time. Patient is resting comfortably at time of evaluation. Patient denies any prior history of coronary disease denies any prior history of PE or DVT. Related Data Home Medications ?Medication ?Instructions ?Recorded ?Confirmed ?Last Taken ?Type canagliflozin 150 mg-metformin 1 tablet PO BID 08/29/21 06/11/22 08/29/21 09:00 History 1,000 mg tablet (Invokamet) gabapentin 300 mg capsule 600 mg PO BID 08/29/21 06/11/22 05/31/22 History levothyroxine 100 mcg tablet 100 mcg PO QAM 08/29/21 06/11/22 05/31/22 History lisinopril 2.5 mg tablet 2.5 mg PO QPM 08/29/21 06/11/22 08/28/21 21:00 History simvastatin 20 mg tablet 20 mg PO DAILY 08/29/21 06/11/22 08/28/21 21:00 History semaglutide 2 mg/dose (8 mg/3 mL) 2.5 mg subcut WE 03/24/22 06/11/22 Unknown History subcutaneous pen injector (Ozempic) Vivscal 1 tab-cap PO BID 05/24/22 06/11/22 Unknown History glimepiride 1 mg tablet 1 mg PO BID 05/24/22 06/11/22 Unknown History aivdgxfvepsc-Ox-oeqy-minerals 1 tablet PO DAILY 05/24/22 06/11/22 Unknown History Allergies Allergy/AdvReac Type Severity Reaction Status Date / Time No Known Allergies Allergy Verified 06/11/22 14:28 Review of Systems Review of Systems: All systems reviewed & are unremarkable except as noted in HPI and below PMFSH Past Medical History Medical History (Updated 03/15/25 @ 14:45 by Dragan Iyer MD) Symptomatic cholelithiasis Hypothyroidism Asymptomatic cholelithiasis Peripheral autonomic neuropathy due to diabetes mellitus Hyperlipidemia (Unknown) Hypertension (Unknown) Diabetes mellitus Surgical History Surgical History (Updated 06/11/22 @ 14:29 by Corina Maddox) History of laparoscopic cholecystectomy 05/31/2022 History of laparoscopic appendectomy 03/24/22 History of thyroid surgery History of 2 sections Family History Family History Father Diabetes mellitus Diverticulitis Hypertension Grandparent Diabetes mellitus Family history of malignant neoplasm Thyroid cancer Mother Family history of malignant neoplasm Social History Social History Smoking packs per day: 0.2 Smoking cigarettes per day: 4.0 Years smoked: 2 Smoking pack-years: 0.40 Tobacco type: cigarettes Smoking end date: 11/03/75 Alcohol intake: current Drinks per week: 1 Substance use: never Lack of Transportation: No Lack of Food: Never True Current Housing: I Have Housing Concerned About Future Housing: No Difficulty Paying Gas/Electric Bills: YES Difficulty Paying for Meds: No Currently Unemployed: No Education: High School Diploma/GED Difficulty w/ Childcare or Family Care: No Living arrangements: with family Additional living arrangements comments: [facility] Spiritual care concerns: No Exam Narrative: APPEARANCE: Well appearing, no pain, no distress, well-nourished. HEAD: normocephalic, atraumatic. EYES: PERRLA/EOMI, conjunctivae clear. NOSE: Normal no drainage EARS:TMS clear with good light reflex. THROAT: Pharynx clear, no exudate. NECK: Supple. No adenopathy, no masses. RESPIRATORY: Airway patent, respirations nonlabored. Clear to auscultation bilaterally, no rales, rhonchi, wheezing. CARDIOVASCULAR: Regular rate and rhythm without murmurs rubs or gallops. ABDOMINAL: Soft, nontender, nondistended, normal bowel sounds MUSCULOSKELETAL: Moves all extremities. Strength/ROM intact, No edema, No calf tenderness. NEURO: Alert. Cranial nerves II through XII intact. Good gait. Good coordination SKIN: Warm, dry. Normal Color Course Vital Signs Vital signs: Vital Signs Pulse Rate 115 H 03/15/25 11:04 Respiratory Rate 20 03/15/25 11:04 Blood Pressure 149/88 H 03/15/25 11:04 Pulse Oximetry 100 03/15/25 11:04 Oxygen Delivery Room Air 03/15/25 11:04 Pulse Rate 85 03/15/25 15:05 Respiratory Rate 16 03/15/25 15:05 Blood Pressure 115/79 03/15/25 15:05 Pulse Oximetry 96 03/15/25 15:05 Oxygen Delivery Room Air 03/15/25 11:08 Medical Decision Making MDM Narrative Medical decision making narrative: 69-year-old female present to the emergency department for evaluation for rapid heart rate and chest pressure. Patient is currently afebrile with no leukocytosis hemoglobin of 14.3. INR is 1.0. Patient does have an elevated creatinine of 1.17 which is not far from her baseline. Page does have a mildly elevated lipase of 475 but has no reproducible abdominal tenderness to palpation. Chest x-ray showed no acute cardiopulmonary abnormality. Initial EKG showed sinus tachycardia with a heart rate of 115 is and frequent PVCs. Patient's heart rate did improve with rehydration. Patient had negative serial troponins. Patient was negative for influenza RSV and for COVID. Patient's D-dimer was not elevated. Differential Diagnosis Differential Diagnosis: ACS, pneumonia, pneumothorax, pulmonary embolism Vital Signs Vital Signs: Vital Signs Pulse Rate 115 H 03/15/25 11:04 Respiratory Rate 20 03/15/25 11:04 Blood Pressure 149/88 H 03/15/25 11:04 Pulse Oximetry 100 03/15/25 11:04 Oxygen Delivery Room Air 03/15/25 11:04 Pulse Rate 85 03/15/25 15:05 Respiratory Rate 16 03/15/25 15:05 Blood Pressure 115/79 03/15/25 15:05 Pulse Oximetry 96 03/15/25 15:05 Oxygen Delivery Room Air 03/15/25 11:08 Lab Data Lab results reviewed: Yes I reviewed the patient's lab results. 03/15/25 11:20 03/15/25 11:20 Labs: Lab Results 03/15/25 03/15/25 03/15/25 Range/Units 11:20 12:06 14:02 WBC 6.3 (4.5-10.0) K/mm3 RBC 4.87 (4.2-5.4) M/mm3 Hgb 14.3 (12.0-15.0) g/dL Hct 44.3 (37.0-47.0) % MCV 91.0 (80-100) fl MCH 29.4 (26-34) pg MCHC 32.3 (32-36) g/dl RDW 14.2 (11.5-14.5) % Plt Count 181 (150-375) k/mm3 MPV 9.9 (7.4-10.4) fl Immature Gran % (Auto) 0.2 (0-0.5) % Neut % (Auto) 75.6 H (45.5-73.1) % Lymph % (Auto) 12.5 L (18.3-44.2) % [place] % (Auto) 8.5 (2.6-8.5) % Eos % (Auto) 2.9 (0-4.4) % Baso % (Auto) 0.3 (0.2-1.2) % Lymph # (Auto) 0.78 L (0.9-3.2) K/mm3 [place] # (Auto) 0.5 (0.1-0.6) K/mm3 Eos # (Auto) 0.2 (0-0.3) K/mm3 Baso # (Auto) 0.0 (0.0-0.1) K/mm3 Abs Immat Gran (auto) 0.01 (0.00-0.031) K/mm3 Absolute Neuts (auto) 4.7 (1.3-6.7) K/mm3 Absolute Nucleated RBC 0.000 (0.0-0.012) K/mm3 Nucleated RBC % 0.0 (0.0-0.2) % PT 13.4 (11.1-14.7) Seconds INR 1.0 APTT 28.9 (22.3-36.8) Seconds D-Dimer < 0.27 (<0.48) ug/mL Sodium 140 (137-145) mmol/L Potassium 4.4 (3.4-5.0) mmol/L Chloride 106 (98-107) mmol/L Carbon Dioxide 24 (22-30) mmol/L Anion Gap 10 (4-12) mmol/L BUN 18 H (7-17) mg/dL Creatinine 1.17 H (0.7-1.0) mg/dL Estim Creat Clear Calc 50 ml/min Estimated GFR 46 L (59 - ) Glucose 137 H (65-110) mg/dL Calcium 9.5 (8.4-10.2) mg/dL Total Bilirubin 0.6 (0.2-1.3) mg/dL AST 28 (14-36) U/L ALT 26 (6-35) U/L Alkaline Phosphatase 88 (38-126) U/L Troponin I < 0.012 < 0.012 (0.000-0.034) ng/mL Total Protein 7.6 (6.3-8.2) g/dL Albumin 4.4 (3.5-5.1) g/dL Lipase 475 H (23-300) U/L Influenza A (RT-PCR) Negative (Negative) Influenza B (RT-PCR) Negative (Negative) RSV (RT-PCR) Negative (Negative) SARS-CoV-2 RNA (RT-PCR) Negative (Negative) Imaging Data Radiologist's impression: Impressions Chest X-Ray 03/15/25 11:54 IMPRESSION: 1. No acute cardiopulmonary disease. Discharge Plan Discharge Clinical Impression: Heart palpitations, Shortness of breath Patient Disposition: Home Condition: Stable Instructions: Antibiotic Form, Chest Pain (ED), Heart Palpitations (DC) Additional Instructions: Continue to have close follow-up with your primary care physician for additional outpatient cardiac testing including your echocardiogram and Lexiscan. You had negative cardiac enzymes in the emergency department and you had a negative D-dimer. If you have any worsening symptoms then please call or return to the emergency department. Patient Language: Ug[place]an Prescriptions: No Action gabapentin 300 mg capsule 600 mg PO BID Invokamet 150-1,000 mg tablet 1 tablet PO BID lisinopril 2.5 mg tablet 2.5 mg PO QPM levothyroxine 100 mcg tablet 100 mcg PO QAM simvastatin 20 mg tablet 20 mg PO DAILY Ozempic 2 mg/dose (8 mg/3 mL) Pen Injector 2.5 mg SUBCUT WE Rx Instructions: starts Friday03/27/22 yxwfpewvzjws-Ke-dmww-minerals Tablet 1 tablet PO DAILY Vivscal 1 tab-cap PO BID glimepiride 1 mg tablet 1 mg PO BID Follow-up/Referrals: Ana,LORENZO Sanchez [Primary Care Provider, Unknown] Quality HEART score for chest pain patients History: slightly suspicious ECG: normal Age: > or = to 65 years Risk factors: 1 or 2 risk factors Troponin: < or = to 1x normal limit Heart score: 3
[2025-03-15 12:48] LABS: Troponin I < 0.012 ng/mL (0.000-0.034)
[2025-03-15 12:54] LABS: Influenza A QL RT-PCR Negative (Negative); Influenza B QL RT-PCR Negative (Negative); RSV RNA, RT-PCR Negative (Negative); SARS-CoV-2 RNA PCR Negative (Negative)
--- NOTE | 2025-03-15 13:47 | ECG_ITS ---
Test Date: 2025-03-15 13:59:50 Measurements Intervals [place] Rate: 98 P: 38 WY: 155 QRS: 11 QRSD: 93 T: 78 QT: 378 QTc: 483 Interpretive Statements SINUS RHYTHM LOW QRS VOLTAGE IN PRECORDIAL LEADS [QRS DEFLECTION < 1.0 mV IN CHEST LEADS] Electronically Signed On 03-15-2025 17:58:33 ELECTRIC FREIGHT CAR OPERATOR by Pepito Kelly M.D.
[2025-03-15 14:32] LABS: Troponin I < 0.012 ng/mL (0.000-0.034)
== END 2025-03-15 15:07 | disposition home or self-care (01) ==
PROVIDERS: Emergency Medicine; Emergency Provider Emergency Medicine; PCP Physician Assistant
DX: R06.02 Shortness of breath (principal); R00.2 Palpitations; Z20.822 Contact with and (suspected) exposure to COVID-19; I10 Essential (primary) hypertension; E03.9 Hypothyroidism, unspecified; E11.43 Type 2 diabetes mellitus with diabetic autonomic (poly)neuropathy; E78.5 Hyperlipidemia, unspecified; Z87.891 Personal history of nicotine dependence; Z90.49 Acquired absence of other specified parts of digestive tract; Z79.85 Long-term (current) use of injectable non-insulin antidiabetic drugs; Z79.899 Other long term (current) drug therapy; Z79.84 Long term (current) use of oral hypoglycemic drugs; R00.0 Tachycardia, unspecified; I49.3 Ventricular premature depolarization
CPT/HCPCS: 36415; 71046; 80053; 83690; 84484; 85025; 85380; 85610; 85730; 87637; 93005; 99284; A9270

== ENCOUNTER 2025-04-05 08:45 | Outpatient (CLI) | payer MEDICARE, SELFPAY ==
--- NOTE | 2025-04-05 | ECHO_ITS ---
Patient Info Name: Jennifer Ibrahim Age: 70 years : 1955 Gender: Female Ht: 64 in Wt: 230 lbs BSA: 2.22 m2 HR: 97 bpm BP: 134 / 85 mmHg Technical Quality: Good Exam Date: 04/05/2025 9:18 AM Patient Status: O Admit Date: 04/05/2025 Exam Type: CA echo dop color flow w con Complete two-dimensional, color flow and Doppler transthoracic echocardiogram is performed with contrast to opacify the left ventricle and to improve the deliniation of the left ventricle endocardial borders. Staff Referring Physician: Laura Perez Booth Operator: Cheyenne Cantrell Attending Provider: Laura Perez Contrast/Agitated Saline Contrast/Ag. Saline: Definity Amount: 2.00 ml Summary 1. Left ventricular chamber dimension is mildly enlarged. 2. Left ventricular systolic function is normal, estimated at 30-35. 3. The left ventricular diastolic function is abnormal. 4. Left atrial chamber dimension is mildly enlarged. 5. There is mild mitral valve regurgitation. 6. There is mild pulmonic regurgitation. Left Ventricle Left ventricular chamber dimension is mildly enlarged. Left ventricular systolic function is normal, estimated at 30-35. There is no increased left ventricular wall thickness. Left ventricular septal wall motion is normal. The left ventricular diastolic function is abnormal. Right Ventricle Right ventricular chamber dimension is normal. Right ventricular systolic function is normal. Left Atria Left atrial chamber dimension is mildly enlarged. Right Atria Right atrial chamber dimension is normal. Aortic Valve The aortic valve is trileaflet. There is mild aortic valve sclerosis. There is no aortic valve stenosis. There is no aortic valve regurgitation. Pulmonic Valve The pulmonic valve is normal. There is no pulmonic valve stenosis. There is mild pulmonic regurgitation. Mitral Valve The mitral valve has normal leaflets. There is no mitral valve stenosis. There is mild mitral valve regurgitation. Tricuspid Valve The tricuspid valve leaflets are normal. There is no significant tricuspid valve stenosis. There is no tricuspid valve regurgitation. Pericardium/Pleural The pericardium appears normal. There is no pericardial effusion. Inferior Vena Cava Normal inferior vena cava with >50% collapse upon inspiration consistent with normal right atrial pressure, 5 mmHg. Aorta The aortic root size at the sinus of Valsalva is normal. The prox ascending aorta size is normal. Left Ventricular Outflow Tract Name Value Normal LVOT 2D LVOT Diameter 2.0 cm LVOT Doppler LVOT Peak Velocity 87 cm/s LVOT Peak Gradient 3 mmHg LVOT Mean Gradient 2 mmHg LVOT VTI 15 cm LVOT Stroke Volume 48 ml LVOT CO 4.7 l/min LVOT CI 2.1 l/min/m2 Pulmonic Valve Name Value Normal RVOT Doppler RVOT Peak Velocity 51 cm/s RVOT Peak Gradient 1 mmHg PV Doppler PV Peak Velocity 83 cm/s PV Peak Gradient 3 mmHg Mitral Valve Name Value Normal MV Diastolic Function MV E Peak Velocity 99 cm/s MV A Peak Velocity 39 cm/s MV E/A 2.6 MV Decel Time (PW) 179 ms MV Annular TDI MV E/e' (Septal) 20.3 MV E/e' (Lateral) 17.7 MV E/e' (Average) 19.0 Tricuspid Valve Name Value Normal Estimated PAP/RSVP RA Pressure 5 mmHg <=5 Aortic Valve Name Value Normal AV Doppler AV Peak Velocity 124 cm/s AV Peak Gradient 6 mmHg AV Area (Cont Eq Boyd) 2.2 cm2 AV DI (Boyd) 0.70 AV Regurgitation 2D LVOT Area 3.2 cm2 Ventricles Name Value Normal LV Dimensions 2D/MM IVS Diastolic Thickness (2D) 0.9 cm 0.6-1.0 LVID Diastole (2D) 6.3 cm 3.8-5.2 LVIW Diastolic Thickness (2D) 0.9 cm 0.6-0.9 LVID Systole (2D) 5.8 cm 2.2-3.5 LVOT Diameter 2.0 cm LV Mass (2D Cubed) 236.09 g 67.00-162.00 LV Mass Index (2D Cubed) 106 g/m2 43-95 Relative Wall Thickness (2D) 0.29 <=0.42 LV Fractional Shortening/Ejection Fraction 2D/MM LV Fractional Shortening (2D) 8 % 27-45 LV EF (2D Teichholz) 18 % LV Diastolic Volume (4C MOD) 172 ml LV EF (4C MOD) 29 % LV Diastolic Volume (2C MOD) 205 ml LV EF (2C MOD) 17 % LV Diastolic Volume (BP MOD) 189 ml 46-106 LV Diastolic Volume Index (BP MOD) 85 ml/m2 29-61 LV Systolic Volume (BP MOD) 153 ml 14-42 LV Systolic Volume Index (BP MOD) 69 ml/m2 8-24 LV EF (BP MOD) 19 % 54-74 LV Diastolic Length (4C) 8.9 cm LV Systolic Length (4C) 7.8 cm LV Stroke Volume (4C MOD) 49 ml Atria Name Value Normal LA Dimensions LA Volume (4C A-L) 84 ml LA Volume (BP A-L) 54 ml RA Dimensions RA Systolic Major [place] Length (4C) 4.6 cm 2.2-2.8 RA Area (4C) 12.0 cm2 <=18.0 Report Signatures
--- NOTE | 2025-04-05 | EST_ITS ---
Patient Info Name: Jennifer Ibrahim Age: 70 years : 1955 Gender: Female Ht: 64 in Wt: 240 lbs BSA: 2.27 m2 HR: 102 bpm BP: 114 / 61 mmHg Exam Date: 04/05/2025 9:00 AM Patient Status: O Admit Date: 04/05/2025 Exam Type: CA stress ab w NM A regadenoson stress test was performed. Staff Referring Physician: Laura Perez Attending Provider: Laura Perez Nurse: Diane Ramirez Exercise Technologist: Janet Ramirez Protocol: Lexiscan Stress ECG Details Stage: REST Duration (min): 3 min : 0 sec HR (bpm): 102 SBP (mmHg): 114 DBP (mmHg): 61 Stage: REST Duration (min): 5 min : 12 sec HR (bpm): 100 SBP (mmHg): 114 DBP (mmHg): 61 Stage: STAGE 1 Duration (min): 0 min : 59 sec HR (bpm): 105 SBP (mmHg): 105 DBP (mmHg): 50 Stage: RECOVERY Duration (min): 1 min : 0 sec HR (bpm): 109 SBP (mmHg): 105 DBP (mmHg): 50 Stage: RECOVERY Duration (min): 2 min : 0 sec HR (bpm): 108 SBP (mmHg): 105 DBP (mmHg): 50 Stage: RECOVERY Duration (min): 3 min : 0 sec HR (bpm): 109 SBP (mmHg): 107 DBP (mmHg): 59 Stage: RECOVERY Duration (min): 3 min : 22 sec HR (bpm): 108 SBP (mmHg): 107 DBP (mmHg): 59 Rest HR: 100 bpm Peak HR: 111 bpm Rest Sys BP: 114 mmHg Peak Sys BP: 107 mmHg Max Pred HR: 151 bpm % Max Pred HR: 74 % Target HR: 128 bpm Max RPP: 11,877 bpm*mmHg Total Time: 1 min : 0 sec Rest Dutta BP: 61 mmHg Peak Dutta BP: 59 mmHg Total Dose: 0.4 mg Resting ECG sinus rhythm with PVCs. artifact. Stress ECG Non-diagnostic ECG due to significant artifact. Arrhythmias Frequent PVCs. Report Signatures
--- NOTE | ~2025-04-05 | NM_ITS ---
EXAMINATION: NM ab stress w perfusion DATE: 04/05/2025 12:25 INDICATION: Dyspnea TECHNIQUE: Rest images were obtained following intravenous administration of 8.8 mCi Tc99m tetrofosmin (Myoview). The patient was infused intravenously with Lexiscan (Regadenoson). Then, 8.5 mCi Tc99m tetrofosmin (Myoview) was administered intravenously, and stress images were obtained, initially in the supine position with repeat post stress images obtained in the prone position. Data was reconstructed into short axis and horizontal and vertical long axis SPECT images. Gated SPECT images were also obtained. COMPARISON: None. FINDINGS: There is decreased activity along the inferior wall on both the rest and stress images obtained in the supine position portions of which normalizes on the prone post stress imaging suggesting diaphragmatic attenuation artifact. Residual mild perfusion defects at the apical inferior segment consistent with possible small mild infarct. There is a small mild perfusion defect at the mid anterior segment on the post stress images obtained in both the prone and supine position which normalizes on the rest images consistent with ischemia. There is normal left ventricular chamber size and wall motion. Mildly decreased left ventricular ejection fraction measuring 39%. IMPRESSION: 1. Small region of mild reversible ischemia at the mid anterior segment and possible small mild nonreversible infarct at the apical inferior segment. 2. Mildly decreased left ventricular ejection fraction measuring 39%. Reviewed, dictated and finalized at location A. INE CHOCOL[employer]OLDER IMPRESSION: 1. Small region of mild reversible ischemia at the mid anterior segment and pos sible small mild nonreversible infarct at the apical inferior segment. 2. Mildly decreased left ventricular ejection fraction measuring 39%.
--- OUTSIDE RECORDS SUMMARY | 2025-04-05 09:00 | XMS_ITS | Clinical Summary ---
Author Organization [facility] Address [address] [place] [address] Care Team Providers Care Drying Room Attendant Name Role Phone Laura Rodas Primary Care Pr ovider Source Comments [facility],non-owned Affiliates and Associated Physician Practices is amultiple site organization consisting of ambulatory clinics and hospital sitesin [place], [place], [place] and [place]. This disclosure is being madepursuant to the Care Everywhere program and may not contain all information available regarding this patient. Last updated 18.[facility] Social History Tobacco Use Types Packs/Day Years Used Date Smoking Tobacco: Never Assessed Comments Unknown Sex and Gender Information Value Date Recorded Sex Assigned at Not on file Legal Sex Female 6:20 AM CLINICAL SUPPORT NURSE Gender Identity Not on file Sexual Orientation [...] DEPRESSION SCREENING 05/05/2024 COVID-19 VACCINE (1 - 2024-2 6 season) 2025 INFLUENZA VACCINE (#1) 2025 Respiratory [...] age to complete this topic Care Teams Drying Room Attendant Relationship Specialty Start Date End Date Laura Rodas PA [address] [place] [id number] PCP - General 04/08/22
--- OUTSIDE RECORDS SUMMARY | 2025-04-05 09:00 | XMS_ITS | Data Portability ---
Author Organization [facility] Petrona Alvarez Address [address] [place] [place] [address] Care Team Providers Care Owner Spa Director Name Role Phone JAG HARRISONIE Primary Care Provider Unavailab le Assessment Encounter Date Assessment Date Assessment LastModified by Organization Details LastModified Time 10/29/2023 10/29/2023 eye exam UTD in the last year. Not available 10/29/2023 14:17:13 04/21/2024 04/21/2024 eye exam still due. planning for may 2024 Colonoscopy completed April 09, 2024 was normal and she can repeat in 7 years mammogram in august is scheduled. still to schedule dexa scan. Not available 04/21/2024 14:34:47 10/20/2024 10/20/2024 eye exam still due. Colonoscopy completed April 09, 2024 was normal and she can repeat in 7 years mammogram in august 2024. still to schedule dexa scan. Not available 10/20/2024 14:46:50 12/22/2024 12/22/2024 eye exam still due. Colonoscopy completed April 09, 2024 was normal and she can repeat in 7 years mammogram in august 2024. still to schedule dexa scan. Not available 12/22/2024 11:59:25 03/09/2025 03/09/2025November lab work; Labs show special urine protein testing is stable in good range. Thyroid levels are stable cholesterol levels are stable, her fasting sugar is too elevated at 204. With an A1c of 8.1%. We do need to get that down. Along with just dietary changes decreasing carbs and sugars I could increase her glimepiride to 2 mg twice daily with meal. And she would continue metformin 1000 mg twice daily. Unfortunately with the cost of Ozempic she is not able to be on that which is really what worked best for her. Her liver enzymes are normal and her CBC blood counts are stable. eye exam still due. Colonoscopy completed April 09, 2024 was normal and she can repeat in 7 years mammogram in august 2024. DEXA scan up-to-date February 2025 Not available 03/09/2025 11:01:22 Plan of Treatment Reminders Order Date Submit Date Provider Last Modified By Organization Details Last Modified Time Details Appointments ANY 15 2025 10:30A M KULWINDER Chan Not available Not available Not available Lab CBC w/ auto diff 2024 026 [facility], [address], [place], [address], 03/09/2025 12:25:16 hepatic function panel, serum 2024 026 [facility], [address], [place], [address], 03/09/2025 12:25:15 BMP, serum or plasma 2024 026 [facility], [address], [place], [address], 03/09/2025 12:25:15 lipid panel, serum 2024 026 [facility], [address], [place], [address], 03/09/2025 12:25:15 HbA1c (hemoglob in A1c), blood 2024 026 [facility], [address], [place], [address], 03/09/2025 12:25:15 TSH + free T4, serum 2024 026 [facility], [address], [place], [address], 03/09/2025 12:25:16 CBC w/ auto diff 2024 025 [facility], [address], [place], [address], 03/10/2025 03:34:25 hepatic function panel, serum 2024 025 [facility], [address], [place], [address], 03/10/2025 03:34:24 BMP, serum or plasma 2024 025 [facility], [address], [place], [address], 03/10/2025 03:34:24 lipid panel, serum 2024 025 [facility], [address], [place], [address], 03/10/2025 03:34:22 HbA1c (hemoglob in A1c), blood 2024 025 [employer] [facility], [address], [place], [address], 03/10/2025 03:34:25 TSH + free T4, serum 2024 025 [facility], [address], [place], [address], 03/10/2025 03:34:23 HbA1c (hemoglob in A1c), blood 2024 025 [employer] [facility], [address], [place], [address], 11/04/2024 12:38:39 microalbu min/creat inine, mass ratio, urine 2024 025 [email or web address] [facility], [address], [place], [address], 11/11/2024 16:24:14 CBC w/ auto diff 2024 025 [email or web address] [facility], [address], [place], [address], 11/04/2024 12:39:20 hepatic function panel, serum 2024 025 [email or web address] [facility], [address], [place], [address], 11/04/2024 12:38:50 BMP, serum or plasma 2024 025 [email or web address] [facility], [address], [place], [address], 11/04/2024 12:39:10 lipid panel, serum 2024 025 [facility], [address], [place], [address], 11/04/2024 12:39:01 TSH + free T4, serum 2024 025 [email or web address] [facility], [address], [place], [address], 11/04/2024 12:39:15 HbA1c (hemoglob in A1c), blood 2023 025 [employer] [facility], [address], [place], [address], 02/04/2025 10:49:31 microalbu min/creat inine, mass ratio, urine 2023 025 [facility], [address], [place], [address], 02/04/2025 10:48:52 CBC w/ auto diff 2023 025 [employer] [facility], [address], [place], [address], 02/04/2025 10:49:49 hepatic function panel, serum 2023 025 [email or web address], [address], [place], [address], 02/04/2025 10:49:39 BMP, serum or plasma 2023 025 [employer] [facility], [address], [place], [address], 02/04/2025 10:49:22 lipid panel, serum 2023 025 [email or web address] [facility], [address], [place], [address], 02/04/2025 10:49:10 TSH + free T4, serum 2023 025 [employer] [facility], [address], [place], [address], 02/04/2025 10:49:02 CBC w/ auto diff 2023 024 [employer], [address], [place], [address], 05/12/2024 17:04:02 hepatic function panel, serum 2023 024 [employer] [facility], [address], [place], [address], 05/12/2024 17:04:20 BMP, serum or plasma 2023 024 [facility], [address], [place], [address], 05/12/2024 17:04:38 lipid panel, serum 2023 024 [email or web address] [facility], [address], [place], [address], 08/26/2024 16:37:38 HbA1c (hemoglob in A1c), blood 2023 024 [facility], [address], [place], [address], 05/12/2024 17:04:29 TSH + free T4, serum 2023 024 ESAU [facility], [address], [place], [address], 04/22/2024 09:48:05 Referral None recorded. Procedures lexiscan cardiolit e stress test (PROC) [address] (Cardiology & Emg), [address], [place], [address], 04/04/2025 16:52:47 home sleep testing (PROC) - please proceed larisa.. 2024 025 [facility], [address], [place], [address], 03/23/2025 11:20:46 colonosco py screening (PROC) 2023 024 ESAU Ontiveros MD, [address], [address], [place], [address], 04/16/2024 12:08:21 Surgeries None recorded. Imaging US, echocardi ogram, transthor acic, complete, w/ color flow 2024 [facility] ([facility]iology [facility]), [address], [place], [address], 03/29/2025 15:53:45 XR, chest, 2 view 2024 [facility] (Imaging), [address], [place], [address], 03/24/2025 10:18:50 DEXA 2024 025 [email or web address], [address], [address], [place], [address], 02/14/2025 15:26:02 MAMMO, screening , digital, bilateral [address] [facility], [address], [address], [place], [address], 08/19/2024 13:46:32 DEXA 2023 024 [email or web address] [facility], [address], [address], [place], [address], 10/19/2024 14:39:08 Medication Orders Ozempic 1 mg/dose (4 mg/3 mL) subcutane ous pen injector 2024 025 [facility], [address] [place], [address], 03/10/2025 09:03:52 Ozempic 0.25 mg or 0.5 mg (2 mg/3 mL) subcutane ous pen injector 2024 025 [facility], [address] [place], [address], 03/10/2025 10:06:29 Ozempic 2 mg/dose (8 mg/3 mL) subcutane ous pen injector 2023 025 [facility], [address] [place], [address], 10/20/2024 14:29:11 Patient TargetsNo targets recorded. Patient Instructions Encounter Date Encounter Id Patient Instructions Last Modified By Organization Details Last Modified Time 10/29/2023 [id number] A healthy lifestyle: care instructions Not available 11/09/2023 13:33:45 04/21/2024 [id number] A healthy lifestyle: care instructions Not available 04/21/2024 14:41:38 10/20/2024 [id number] A healthy lifestyle: care instructions Not available 10/20/2024 14:50:25 12/22/2024 [id number] advance care planning: care instructions Not available 12/22/2024 11:53:57 preventing falls : care instructions Not available 12/22/2024 11:53:57 Quitting Tobacco : Care Instructions Not available 12/22/2024 11:53:57 [facility] Not available 12/22/2024 11:53:57 eating healthy foods: care instructions Not available 12/22/2024 11:53:57 AD8 Dementia Screening Interview Not available 12/22/2024 11:53:57 A healthy lifestyle: care instructions Not available 12/22/2024 11:53:57 03/09/2025 [id number] A healthy lifestyle: care instructions Not available 03/09/2025 12:25:15 Reason for Referral None Reported. Results Created Date Observation Date Name Description Value Unit Range Abnormal Flag Note LastModifiedBy Organization Detail LastModifiedTime 03/09/2003/10/2025 LIPID PANEL WITH RATIO S cholesterol, total 134 mg/dL <200 normal Not Available [employer] [facility] [address] [place], [address], 03/10/2025 03:34:22 03/09/20 25 03/10/2025 LIPID PANEL WITH RATIO S HDL cholesterol 46 mg/dL > or = 50 low Not Available [address], [address], 03/10/2025 03:34:22 03/09/20 25 03/10/2025 LIPID PANEL WITH RATIO S triglyceride s 100 mg/dL <150 normal Not Available [address], [address], 03/10/2025 03:34:22 03/09/20 25 03/10/2025 LIPID PANEL WITH RATIO S LDL-choleste rol 69 mg/dL _(ifdel c) normal Refer ence range : <100 Jonna able range <100 mg/dL for prima ry preve ntion ; <70 mg/dL for patie nts with CHD or diabe tic patie nts with > or = 2 CHD risk facto rs. LDL-C is now calcu lated using the Lissett n[facility] garciau dhaval n, which is a valid ated novel slava france than the Fried andrea equat ion in the estim ation of LDL-C . Lissett joe SS et al. DEWAYNE. 2013; 310(1 9): 2061- 2068 (http ://ed ucati on.Qu Dionte hernandez Wigixs. com/f aq/FA Q164) Not Available [place] [address] [place], [address], 03/10/2025 03:34:22 03/09/20 25 03/10/2025 LIPID PANEL WITH RATIO S chol/HDLC ratio 2.9 (calc ) <5.0 normal Not Available [place] [address] [place], [address], 03/10/2025 03:34:22 03/09/20 25 03/10/2025 LIPID PANEL WITH RATIO S LDL/HDL ratio 1.5 (calc ) Below avera ge Risk: <2.34 [place] ge Risk: 2.35- 4.12 Moder ate Risk: 4.13- 5.56 High Risk: >5.57 Not Available [address], [address], 03/10/2025 03:34:22 03/09/20 25 03/10/2025 LIPID PANEL WITH RATIO S non HDL cholesterol 88 mg/dL _(fidel c) <130 normal For patie nts with diabe maria teresa plus 1 major ASCVD risk facto r, treat ing to a non-H DL-C goal of <100 mg/dL (LDL- C of <70 mg/dL ) is devika marrero c optio n. Not Available [address], [address], 03/10/2025 03:34:22 03/09/20 25 03/10/2025 TSH+F REE T4 TSH 0.01 mIU/L 0.40-4 .50 low Not Available [address], [address], 03/10/2025 03:34:23 03/09/20 25 03/10/2025 TSH+F REE T4 T4, free 1.5 NG/dL 0.8-1. 8 normal Not Available [address], [address], 03/10/2025 03:34:23 03/09/20 25 03/10/2025 BASIC METAB OLIC PANEL glucose 97 mg/dL 65-99 normal Fasti ng refer ence inter alexander Not Available [address], [address], 03/10/2025 03:34:24 03/09/20 25 03/10/2025 BASIC METAB OLIC PANEL urea nitrogen (BUN) 16 mg/dL 7-25 normal Not Available [address], [address], 03/10/2025 03:34:24 03/09/20 25 03/10/2025 BASIC METAB OLIC PANEL creatinine 1.09 mg/dL 0.50-1 .05 high Not Available [address], [address], 03/10/2025 03:34:24 03/09/20 25 03/10/2025 BASIC METAB OLIC PANEL eGFR 55 mL/mi n/1.7 3m2 > or = 60 low Not Available [address], [address], 03/10/2025 03:34:24 03/09/20 25 03/10/2025 BASIC METAB OLIC PANEL BUN/creatini ne ratio 15 (calc ) 6-22 normal Not Available [address], [address], 03/10/2025 03:34:24 03/09/20 25 03/10/2025 BASIC METAB OLIC PANEL sodium 141 mmol/ L 135-14 6 normal Not Available [address], [address], 03/10/2025 03:34:24 03/09/20 25 03/10/2025 BASIC METAB OLIC PANEL potassium 4.3 mmol/ L 3.5-5. 3 normal Not Available [address], [address], 03/10/2025 03:34:24 03/09/20 25 03/10/2025 BASIC METAB OLIC PANEL chloride 108 mmol/ L 98-110 normal Not Available [address], [address], 03/10/2025 03:34:24 03/09/20 25 03/10/2025 BASIC METAB OLIC PANEL carbon dioxide 27 mmol/ L 20-32 normal Not Available [address], [address], 03/10/2025 03:34:24 03/09/20 25 03/10/2025 BASIC METAB OLIC PANEL calcium 9.1 mg/dL 8.6-10 .4 normal Not Available [address], [address], 03/10/2025 03:34:24 03/09/20 25 03/10/2025 HEPAT IC FUNCT ION PANEL protein, total 6.5 g/dL 6.1-8. 1 normal Not Available [address], [address], 03/10/2025 03:34:24 03/09/20 25 03/10/2025 HEPAT IC FUNCT ION PANEL albumin 4.1 g/dL 3.6-5. 1 normal Not Available [address], [address], 03/10/2025 03:34:24 03/09/20 25 03/10/2025 HEPAT IC FUNCT ION PANEL globulin 2.4 g/dL_ (calc ) 1.9-3. 7 normal Not Available [address], [address], 03/10/2025 03:34:24 03/09/20 25 03/10/2025 HEPAT IC FUNCT ION PANEL albumin/glob ulin ratio 1.7 (calc ) 1.0-2. 5 normal Not Available [address], [address], 03/10/2025 03:34:24 03/09/20 25 03/10/2025 HEPAT IC FUNCT ION PANEL bilirubin, total 0.6 mg/dL 0.2-1. 2 normal Not Available [address], [address], 03/10/2025 03:34:24 03/09/20 25 03/10/2025 HEPAT IC FUNCT ION PANEL bilirubin, direct 0.1 mg/dL < or = 0.2 normal Not Available [address], [address], 03/10/2025 03:34:24 03/09/20 25 03/10/2025 HEPAT IC FUNCT ION PANEL bilirubin, indirect 0.5 mg/dL _(fidel c) 0.2-1. 2 normal Not Available [address], [address], 03/10/2025 03:34:24 03/09/20 25 03/10/2025 HEPAT IC FUNCT ION PANEL alkaline phosphatase 59 U/L 37-153 normal Not Available [facility] [employer] [address], [address], 03/10/2025 03:34:24 03/09/20 25 03/10/2025 HEPAT IC FUNCT ION PANEL AST 17 U/L 10-35 normal Not Available [address], [address], 03/10/2025 03:34:24 03/09/20 25 03/10/2025 HEPAT IC FUNCT ION PANEL ALT 19 U/L 6-29 normal Not Available [address], [address], 03/10/2025 03:34:24 03/09/20 25 03/10/2025 CBC (INCL UDES DIFF/ PLT) white blood cell count 6.2 thous and/u L 3.8-10 .8 normal Not Available [address], [address], 03/10/2025 03:34:25 03/09/20 25 03/10/2025 CBC (INCL UDES DIFF/ PLT) red blood cell count 4.72 aldo on/uL 3.80-5 .10 normal Not Available [address], [address], 03/10/2025 03:34:25 03/09/20 25 03/10/2025 CBC (INCL UDES DIFF/ PLT) hemoglobin 14.0 g/dL 11.7-1 5.5 normal Not Available [address], [address], 03/10/2025 03:34:25 03/09/2003/10/2025 CBC (INCL UDES DIFF/ PLT) hematocrit 44.4 % 35.0-4 5.0 normal Not Available [address], [address], 03/10/2025 03:34:25 03/09/20 25 03/10/2025 CBC (INCL UDES DIFF/ PLT) MCV 94.1 fL 80.0-1 00.0 normal Not Available [address], [address], 03/10/2025 03:34:25 03/09/20 25 03/10/2025 CBC (INCL UDES DIFF/ PLT) MCH 29.7 pg 27.0-3 3.0 normal Not Available [address], [address], 03/10/2025 03:34:25 03/09/2003/10/2025 CBC (INCL UDES DIFF/ PLT) MCHC 31.5 g/dL 32.0-3 6.0 low For adult s, a sligh t decre ase in the calcu lated MCHC value (in the range of 30 to 32 g/dL) is most likel y not clini antonia signi yvonne t; beatrice er, it shoul d be inter prete d with cauti on in corre latio n with other red cell justin eters and the patie nt's clini fidel condi tion. Not Available [address], [address], 03/10/2025 03:34:25 03/09/20 25 03/10/2025 CBC (INCL UDES DIFF/ PLT) RDW 13.5 % 11.0-1 5.0 normal Not Available [address], [address], 03/10/2025 03:34:25 03/09/20 25 03/10/2025 CBC (INCL UDES DIFF/ PLT) platelet count 196 thous and/u L 140-40 0 normal Not Available [address], [address], 03/10/2025 03:34:25 03/09/20 25 03/10/2025 CBC (INCL UDES DIFF/ PLT) MPV 10.5 fL 7.5-12 .5 normal Not Available [address], [address], 03/10/2025 03:34:25 03/09/20 25 03/10/2025 CBC (INCL UDES DIFF/ PLT) absolute neutrophils 4018 cells /uL 1500-7 800 normal Not Available [address], [address], 03/10/2025 03:34:25 03/09/20 25 03/10/2025 CBC (INCL UDES DIFF/ PLT) absolute lymphocytes 1265 cells /uL 850-39 00 normal Not Available [address], [address], 03/10/2025 03:34:25 03/09/20 25 03/10/2025 CBC (INCL UDES DIFF/ PLT) absolute monocytes 620 cells /uL 200-95 0 normal Not Available [address], [address], 03/10/2025 03:34:25 03/09/20 25 03/10/2025 CBC (INCL UDES DIFF/ PLT) absolute eosinophils 260 cells /uL 15-500 normal Not Available [address] [place], [address], 03/10/2025 03:34:25 03/09/2003/10/2025 CBC (INCL UDES DIFF/ PLT) absolute basophils 37 cells /uL 0-200 normal Not Available [address], [address], 03/10/2025 03:34:25 03/09/2003/10/2025 CBC (INCL UDES DIFF/ PLT) neutrophils 64.8 % normal Not Available [facility] [address], [address], 03/10/2025 03:34:25 03/09/2003/10/2025 CBC (INCL UDES DIFF/ PLT) lymphocytes 20.4 % normal Not Available [facility] [address], [address], 03/10/2025 03:34:25 03/09/20 25 03/10/2025 CBC (INCL UDES DIFF/ PLT) monocytes 10.0 % normal Not Available [facility] [address], [address], 03/10/2025 03:34:25 03/09/20 25 03/10/2025 CBC (INCL UDES DIFF/ PLT) eosinophils 4.2 % normal Not Available [address], [address], 03/10/2025 03:34:25 03/09/2003/10/2025 CBC (INCL UDES DIFF/ PLT) basophils 0.6 % normal Not Available [facility] [address], [address], 03/10/2025 03:34:25 03/09/2003/10/2025 HEMOG LOBIN A1C hemoglobin A1C 5.7 %_of_ total _HGB <5.7 high For someo ne witho ut known diabe maria teresa, a hemog lobin A1c value betwe en 5.7% and 6.4% is consi stent with predi abete s and shoul d be confi rmed with a follo w-up test. For someo ne with known diabe maria teresa, a value <7% indic ates that their diabe maria teresa is well contr olled . A1c targe ts shoul d be indiv idual ized based on durat ion of diabe maria teresa, age, comor bid condi tions , and other consi derat ions. This assay resul t is consi stent with an incre ased risk of diabe maria teresa. Curre ntly, no conse nsus exist s regar ding use of hemog lobin A1c for diagn osis of diabe maria teresa for child mario. Not Available [employer] [facility] [address], [place], [address], 03/10/2025 03:34:25 08/20/19 25 08/19/2024 MAMMO , scree laquita, digit al, bilat eral No observ ation record ed. [facility] [address], [place], [address], 11/01/2024 13:22:26 02/12/20 25 02/11/2025 DEXA No observ ation record ed. [facility] [address], [place], [address], 02/14/2025 15:04:58 Result Notes None recorded. Problems Name Problem SNOMED Code Status Onset Date Resolution Date Notes Provider Name and Address Organization Details Recorded Time Hypothyroid ism 22255932 Active 2023 Nora ch[place]ira, [place] - [facility] 10:21:25 Hyperlipide west 26583421 Active 2023 Nora [place], [place] [facility] 10:21:30 Essential hypertensio n 27420395 Active 2023 N[place] [facility] 10:21:38 Type 2 diabetes mellitus 15524121 Active 2023 [place] [facility] 12:25:45 Neuropathy due to diabetes mellitus 739955225 Active 2023 N[place] [facility] 4 12:25:55 Uncontrolle d type 2 diabetes mellitus 145706630 Active 2023 KULWINDER Chan Attn: Accountin g,[address] [place], [address], [place] [facility] 4 14:03:20 Diabetic peripheral neuropathy 417426007 Active 2023 KULWINDER Chan Attn: Accountin g,[address] [place], [address], [place] [facility] 4 14:03:23 Long-term drug therapy Active 2023 KULWINDER Chan Attn: Accountin g,[address] [place], [address], [place] [facility] 4 14:03:25 Obesity 472617893 Active 2023 KULWINDER Chan Attn: Accountin g,[address] [place], [address], [place] [facility] 4 13:33:34 Body mass index 30+ - obesity 132523659 Active 2023 KULWINDER Chan Attn: Accountin g,[address] [place], [address], [place] [facility] 4 13:33:34 Body mass index 40+ - severely obese 783903193 Active 2023 KULWINDER Chan Attn: Accountin g,[address] [place], [address], [place] [facility] 5 14:38:50 Obese class III 243909806 Active 2024 KULWINDER Chan Attn: Jose Miguelin g,[address] [place], [address], [place] - [facility] 5 14:38:51 Positive screening for depression on PHQ-9 (Patient Health Questionnai re 9) 7968144989312 00 Active 2024 KULWINDER Chan Attn: Deric reaves,[address] [facility], [place], [address], [place] - [facility] 5 13:22:55 Postmenopau keegan osteoporosi s 278426084 Active 2024 KULWINDER Chan Attn: Accountin g,[address] [facility], [place], [address], [facility] - [facility] 5 11:01:44 Obese class II 2466564115043 05 Active 2024 KULWINDER Chna Attn: Deric reaves,[address] [facility], [place], [address], [facility] - SI 12:19:52 Problem Notes None recorded. Procedures Surgical History Date Name Laterality Status Provider Name and Address Organization Details Recorded Time 05/31/19 23 Cholecystectomy completed [facility] 10/29/2023 12:28:25 03/24/20 22 Appendectomy completed [facility] 10/29/2023 12:28:33 05/05/19 11 Carpal tunnel surgery completed [facility] 10/29/2023 12:28:57 05/05/18 91 thyroidectomy completed [facility] 10/29/2023 12:29:07 05/05/18 87 section completed [facility] 10/29/2023 12:29:16 repair of vein completed [facility] 10/29/2023 12:28:48 Imaging Results None recorded. Procedure Notes None recorded. Medical Equipment None Reported. Allergies No known drug allergies Medications Name Sig Start Date Stop Date Status Note LastModified by Organization Details LastModified Time ciproflox acin 500 mg tablet TAKE 1 TABLET BY MOUTH EVERY 12 HOURS 07/26 completed Not Available Not Available Not Available peg-elect rolyte solution 420 gram oral solution DRINK HALF AT 5 PM ON April AND THE OTHER HALF AT 5 AM ON April10/20 completed Not Available Not Available Not Available glimepiri de 2 mg tablet TAKE 1 TABLET BY MOUTH TWICE DAILY BEFORE MEAL(S) active Not Available Not Available No t Available glimepiri de 1 mg tablet TAKE 1 TABLET BY MOUTH TWICE DAILY WITH A MEAL 11/15 completed see 11/26 labs Not Available Not Available Not Available levothyro xine 100 mcg tablet TAKE 1 TABLET BY MOUTH ONCE DAILY IN THE MORNING active Not Available Not Available No t Available simvastat in 20 mg tablet TAKE 1 TABLET BY MOUTH ONCE DAILY IN THE EVENING active Not Available Not Available No t Available metformin 1,000 mg tablet TAKE 1 TABLET BY MOUTH TWICE DAILY active Not Available Not Available No t Available gabapenti n 300 mg capsule TAKE 2 CAPSULES BY MOUTH TWICE DAILY active Not Available Not Available No t Available lisinopri l 2.5 mg tablet TAKE 1 TABLET BY MOUTH ONCE DAILY active Not Available Not Available No t Available doxycycli ne hyclate 100 mg tablet TAKE 1 TABLET BY MOUTH TWICE DAILY FOR 10 DAYS 04/21 completed Not Available Not Available Not Available ibandrona te 150 mg tablet TAKE 1 TABLET BY MOUTH ONCE EVERY MONTH DIRECTED active Not Available Not Available No t Available multivita min active otc Not Available Not Available Not Available Ozempic 1 mg/dose (4 mg/3 mL) subcutane ous pen injector INJECT 1 MG EVERY WEEK SUBCUTAN EOUSLY active Not Available Not Available No t Available Ozempic 2 mg/dose (8 mg/3 mL) subcutane ous pen injector INJECT 2 MG SUBCUTAN EOUSLY ONCE A WEEK DIRECTED 10/20 completed unable to afford at this time Not Available Not Available Not Available Ozempic 0.25 mg or 0.5 mg (2 mg/3 mL) subcutane ous pen injector INJECT 0.25MG SUBCUTAN EOUSLY ONCE WEEKLY FOR WEEKS 1-4. WEEK 5 AND ONWARD, INJECT 0.5MG ONCE A WEEK 03/10 completed will discuss and increase to 1mg instead Not Available Not Available Not Available Vitals Date Recorded Heart rate Respiratory rate Systolic And Diastolic Provider Name and Address Organization Details Last Updated DateTime 10/20/2024 87 /min 18 /min 138/80 mm[Hg] KULWINDER Chan Attn: Accounting, [address] [place], [address], [facility] 10/20/2024 14:48:55 Date Recorded Body height Body mass index (BMI) Body weight Systolic And Diastolic Systolic And Diastolic Provider Name and Address Organization Details Last Updated DateTime 10/20/2024 166.37 cm 41.1 kg/m2 101152.6 8 g 124/78 mm[Hg] 126/78 mm[Hg] Diane Jessica MA [facility] 14:36:08 Date Recorded Respiratory rate Systolic And Diastolic Provider Name and Address Organization Details Last Updated DateTime 10/29/2023 18 /min 130/80 mm[Hg] KULWINDER Chan Attn: Accounting,[address] [place], [address], [facility] 10/29/2023 14:17:21 Date Recorded Body height Body mass index (BMI) Body weight Oxygen saturation Heart rate Systolic And Diastolic Provider Name and Address Organization Details Last Updated DateTime 166.37 cm 38.9 kg/m2 103715. 55 g 98 % 107 /min 149/82 mm[Hg] Norasharon Jones [facility] 13:54:30 Date Recorded Body height Body mass index (BMI) Body weight Respiratory rate Heart rate Oxygen saturation Systolic And Diastolic Provider Name and Address Organization Details Last Updated DateTime 5 166.37 cm 40.8 kg/m2 743868. 5 g 18 /min 84 /min 95 % 132/82 mm[Hg] Diane Jessica MA [facility] 11:54:29 Date Recorded Respiratory rate Systolic And Diastolic Provider Name and Address Organization Details Last Updated DateTime 03/09/2025 16 /min 120/70 mm[Hg] KULWINDER Chan Attn: Accounting,[address] [place], [address], [facility] 03/09/2025 12:31:49 Date Recorded Body height Body mass index (BMI) Body weight Heart rate Oxygen saturation Systolic And Diastolic Provider Name and Address Organization Details Last Updated DateTime 5 166.37 cm 39.2 kg/m2 165581. 58 g 100 /min 94 % 124/80 mm[Hg] Diane Jessica MA [facility] 5 11:59:11 Date Recorded Body height Body mass index (BMI) Body weight Respiratory rate Oxygen saturation Heart rate Systolic And Diastolic Provider Name and Address Organization Details Last Updated DateTime 4 166.37 cm 40.5 kg/m2 607542. 32 g 18 /min 97 % 112 /min 116/82 mm[Hg] Diane Jessica MA [facility] 4 14:14:35 Social History Question Answer Notes LastModified by Organizat ion Details LastModified Time Tobacco Smoking Status Never Smoker [facility] 10/29/2023 12:26:51 Do You Have An Advance Directive? No [email or web address] Information not available 10/29/2023 Do You Wear A Helmet When Biking? No Information not available 12/22/2024 Are You Blind Or Do You Have Difficulty Seeing? No [email or web address] Information not available 10/29/2023 Is Blood Transfusion Acceptable In An Emergency? Yes Information not available 12/22/2024 What Is Your Level Of Caffeine Consumption? Moderate [email or web address] Information not available 10/29/2023 What Type Of Load Out Worker Do You Use? None Information not available 12/22/2024 In The 14 Days Before Symptom Onset, Have You Had Close Contact With A Laboratory-confir med COVID-19 While That Case Was Ill? No Information not available 10/28/2023 In The 14 Days Before Symptom Onset, Have You Had Close Contact With A Person Who Is Under Investigation For COVID-19 While That Person Was Ill? No Information not available 10/28/2023 Have You Been To An Area Known To Be High Risk For COVID-19? No Information not available 10/28/2023 Are You Deaf Or Do You Have Serious Difficulty Hearing? Yes [email or web address] Information not available 10/29/2023 What Type Of Diet Are You Following? REGULAR Information not available 10/29/2023 Have There Been Any Changes To Your Family Or Social Situation? No Information no t available 12/22/2024 What Is The Fluoride Status Of Your Home? Unknown Information not available 12/22/2024 Are There Any Guns Present In Your Home? No [email or web address] Information not available 10/29/2023 Which Of Your Hands Is Dominant? Left Information not available 12/22/2024 Do You Use Insect Repellent Routinely? Yes Information not available 12/22/2024 In The Past 7 Days, How Many Days Did You Exercise? 0 Information not available 12/22/2024 On The Days When You Exercised, How Long Did You Exercise Each Day (in Minutes)? 0 Information not available 12/22/2024 How Intense Was Your Typical Exercise? Currently Not Exercising Information not available 12/22/2024 In The Past 7 Days, How Much Pain Have You [place]? A Lot Information not available 12/22/2024 In General, Would You Say You Health Is: Fair Information not available 12/22/2024 How Would You Describe The Condition Of Your Mouth And Teeth- Including False Teeth Or Dentures? Good Information not available 12/22/2024 Each Night, How Many Hours Of Sleep Do You Get? 4 Information no t available 12/22/2024 Has Anyone Ever Told You That You Snore? Yes Information not available 12/22/2024 In The Past 7 Days, How Often Have You [place] Sleepy In The Daytime? Sometimes Information not available 12/22/2024 On They Days When You Drank Alcohol, How Often Did You Have 4 Or More Drinks At A Time? Never Information no t available 12/22/2024 # Alcohol Drinks Per Week 0 Information not available 12/22/2024 Do You Have A Medical Power Of Plaster Applicator? No Information not available 12/22/2024 What Was The Date Of Your Most Recent Tobacco Screening? 03/09/2025 Information not available 03/09/2025 How Many Children Do You Have? 2 Information not available 12/22/2024 Do You Have Any Pets? Yes Dog Information not available 12/22/2024 What Is Your Relationship Status? [email or web address] Information not available 10/29/2023 Do You Use Your Seat Belt Or Car Seat Routinely? Yes Information not available 10/28/2023 Are You Sexually Active? No Information not available 12/22/2024 Do You Have Smoke And Carbon Monoxide Detectors In Your Home? Yes Information not available 10/28/2023 Are You Passively Exposed To Smoke? No Information no t available 12/22/2024 Do You Participate In Social Media? Yes Information not available 12/22/2024 What Types Of Sporting Activities Do You Participate In? No Information not available 12/22/2024 Do You Use Sunscreen Routinely? Yes [email or web address] Information not available 10/29/2023 Has Tobacco Cessation Counseling Been Provided? Yes Information not available 10/28/2023 On What Date Was Tobacco Cessation Counseling Provided? 03/09/2025 Information not available 03/09/2025 Are You Currently In School? No Information not available 12/22/2024 Sex: Female Functional Status Question Answer Note LastModified by Organization Details LastModified Time Do you use any illicit or recreational drugs? No [email or web address] Information not available 10/29/2023 Do you or have you ever used any other forms of tobacco or nicotine? No [email or web address] Information not available 10/29/2023 What is your level of alcohol consumption? Occasional [email or web address] Information not available 10/29/2023 Are you currently employed? Yes [email or web address] Information not available 10/29/2023 Are you able to care for yourself independently? Yes Information not available 10/28/2023 What is your exercise level? None Information not available 10/29/2023 What type of noise exposure are you exposed to? [email or web address] Infor mation not available 12/22/2024 Mental Status Question Answer Note LastModified by Organizat ion Details LastModified Time Do you feel stressed (tense, restless, nervous, or anxious, or unable to sleep at night)? [id number] sometimes but not in relations to anxiety Information not available 12/22/2024 Family History Relationship Description Onset Age of this Age Resolved Age Notes LastModified by Organization Details LastModified Time Mother Malignant neoplasm of breast Not available 10/28 12:26:14 Father Hypertensive disorder Not available 10/28 12:26:25 Father Diabetes mellitus [email or web address] Not available 2023 15:00:32 Medical History Condition Response Coronary Artery Disease N Other N Atrial Fibrillation N High Blood Pressure N Depression N COPD N Blood Clots N Anxiety Disorder N Muscle, Joint, or Bone Problems Y Acid Reflux (GERD) N Cancer N Stroke N High Cholesterol Y Liver Disease N Headaches Y Kidney or Bladder Problems N Thyroid Problems Y GI Problems N Skin Problems N Anemia N Heart Attack (RI) N Diabetes Y Seizures/Epilepsy N Asthma N Allergies N Hepatitis N Heart Failure N Osteoporosis N Gynecological History Statement/Question Response Menses Monthly N Current Control Method Menopause Obstetrics History GPAL:G 0 P 0 0 0 0 Immunizations Vaccine Type Date Status Note Provider Nam e and Address Organization Details Recorded Time zoster recombinant 3 completed JASMINA [place]as, [place] - [facility] 04/21/2024 14:11:12 zoster recombinant 3 completed Diane Jessica [place], [place] [facility] 04/21/2024 14:11:12 COVID-19 vaccine, vector-nr, rS-Ad26, PF, 0.5 mL 1 completed Diane eJssica [place], [place] [facility] 04/21/2024 14:11:12 COVID-19 vaccine, vector-nr, rS-Ad26, PF, 0.5 mL 1 completed JASMINA [place], [place] [facility] 04/21/2024 14:11:12 COVID-19, mRNA, LNP-S, bivalent, PF, 50 mcg/0.5 mL or 25mcg/0.25 mL dose 3 completed JASMINA [place], [place] [facility] 04/21/2024 14:11:12 RSV, recombinant, protein subunit RSVpreF, adjuvant reconstituted, 0.5 mL, PF 3 completed JASMINA [place], [place] [facility] 04/21/2024 14:11:12 pneumococcal polysaccharide PPV23 3 completed Diane Jessica [place], [place] [facility] 04/21/2024 14:11:12 Pneumococcal conjugate PCV21, polysaccharide DQZ185 conjugate, PF 5 completed Not Available [facility] 03/09/2025 11:20:37 COVID-19, mRNA, LNP-S, PF, 50 mcg/0.5 mL 5 completed Not Available [facility] 03/09/2025 11:20:37 Past Encounters Encounter ID Performer Location Encounter Start Date Encounter Closed Date Diagnosis/Indication Diagnosis SNOMED-CT Code Diagnosis ICD10 Code Diagnosis IMO Codes Diagnosis Note [id number] Klever Ann MD COUNTS INCLUDE 234 BEDS AT [facility] [address] [place] [address] 10/29/2023 13:42:34 10/29/2023 14:27:00 Uncontrolled type 2 diabetes mellitus 679095645 E11.65 Current A1c on labs this September was 7.9%. Boost to Ozempic 2 mg weekly dosing and repeat hemoglobin A1c. Annual microalbum in urine test is stable and patient is on low-dose IZZY inhibitor for renal protection . Hyperlipidemia 72013730 E78.5 Lipid panel is normal on recent labs. Continue simvastati n 20 mg daily Diabetic p eripheral neuropathy 002632459 E11.40 Monofilame nt exam completed today and normal in all 9 regions. Patient does take gabapentin patient does take gabapentin 300 mg 2 capsules twice daily and is stable. Hypothyroidism 84569395 E03.9 Thyroid panel is stable continue levothyrox ine 100 mcg daily. Next labs due in March Long-term drug therapy 820742529 Z79.899 CBC, liver panel and BMP panel due in March Screening mammography 24 456818 Z12.31 Annual mammogram is due and ordered Screening for osteoporosis 321871314 Z13.820 DEXA scan is due and ordered Screening for malignant neoplasm of colon 751142739 Z12.11 Patient is due for screening colonoscop y, order sent. Body mass index 30+ - obesity 065482876 Z68.38 BMI noted at 38.9 Obesity 737729128 E66.8 discussed healthy diet, exercise, controllin g carbohydra maria teresa and added sugars in the diet [id number] Klever Ann MD COUNTS INCLUDE 234 BEDS AT THE [facility]ist [address] [place] [address] 04/21/2024 14:02:58 04/21/2024 14:47:59 Uncontrolled type 2 diabetes mellitus 636720907 E11.65 Patient would like to have Dexcom sensor ordered. She is also due for repeat labs again in October but she has labs that she completed today which are pending. Sal wade showing unable to afford the Ozempic at this time due to the [employer] coverage. She does continue on glimepirid e 1 mg twice a day and metformin 1000 mg twice daily. Once the new year starts she will get her Ozempic 2 mg weekly dosing started again Diabetic p eripheral neuropathy 956695692 E11.40 Patient does take gabapentin patient does take gabapentin 300 mg 2 capsules twice daily and is stable. Hyperlipidemia 63405967 E78.5 Lipid panel is due. Continue simvastati n 20 mg daily, also repeat Hypothyroidism 29129375 E03.9 continue levothyrox ine 100 mcg daily. labs due in October and pending for today Long-term drug therapy 323419927 Z79.899 Obesity 745537804 E66.9 discussed healthy diet, exercise, controllin g carbohydra maria teresa and added sugars in the diet Body mass index 40+ - severely obese 279483954 Z68.41 BMI is 40.5 [id number] Klever Ann MD COUNTS INCLUDE 234 BEDS AT THE [facility] [address] [place] [address] 10/20/2024 13:57:34 10/20/2024 14:56:00 Body mass index 40+ - severely obese 310402565 Z68.41 73442400 BMI is 41.1 Obese class III 19266831 5 E66.813 7762070868 BMI is 41.1 Uncontroll ed type 2 diabetes mellitus 864721087 E11.65 Sal wade showing unable to afford the Ozempic at this time due to the [facility] coverage. She does continue on glimepirid e 1 mg twice a day and metformin 1000 mg twice daily. Once the new year starts she will get her Ozempic 2 mg weekly dosing started again. Check updated A1c and urine albumin testing Diabetic p eripheral neuropathy 815035656 E11.40 Patient does take gabapentin patient does take gabapentin 300 mg 2 capsules twice daily and is stable. Hyperlipidemia 90719964 E78.5 Lipid panel is due. Continue simvastati n 20 mg daily, also repeat Hypothyroidism 83829206 E03.9 continue levothyrox ine 100 mcg daily. labs due in October and pending for today Long-term drug therapy 748483908 Z79.899 Routine CBC liver function and kidney panel ordered Positive s creening for depression on PHQ-9 (Patient Health Questionnaire 9) 4510314147 15495 Z13.31 [id number] Patient was positive screening today. She does feel stable overall with no acute concerns or complaints [id number] Klever Ann MD COUNTS INCLUDE 234 BEDS AT [facility] [place] [address] [place] [address] 12/22/2024 11:29:52 12/22/2024 12:59:01 Adult health examination 366862919 Z00.00 Health Risk Assessment collected and reviewed Positive s creening for depression on PHQ-9 (Patient Health Questionnaire 9) 8599314082 08991 Z13.31 [id number] Patient was positive screening today. She does feel stable overall with no acute concerns or complaints Obese class III 11676888 5 E66.813 E66.3 9590515666 BMI is 40.8 Uncontroll ed type 2 diabetes mellitus 167290720 E11.65 [id number] We will attempt ordering Ozempic again to see if it is covered better on insurance later in the year. Next set of labs will be due in March. Currently 8.1%. Screening for osteoporosis 292067827 Z13.820 [id number] DEXA scan is due and ordered Diabetic p eripheral neuropathy 755956436 E11.40 Patient does take gabapentin patient does take gabapentin 300 mg 2 capsules twice daily and is stable. Hyperlipidemia 17752917 E78.5 Continue simvastati n 20 mg daily repeat fasting labs in March Hypothyroidism 96560142 E03.9 continue levothyrox ine 100 mcg daily. Repeat labs in March Long-term drug therapy 226326093 Z79.382 [id number] KULWINDER Chan [facility] [address] [place] [address] 03/09/2025 11:19:18 03/09/2025 13:01:28 Uncontrolled type 2 diabetes mellitus 295815766 E11.65 A1c at 8.1% on previous labs but we are anticipati ng an improvemen t. She is back on Ozempic., labs are pending from draw today. Increase Ozempic to 1 mg weekly dosing and repeat A1c labs again in July we will call her when her current labs come in with results Diabetic p eripheral neuropathy 456667800 E11.40 Patient does take gabapentin patient does take gabapentin 300 mg 2 capsules twice daily and is stable. Hyperlipidemia 86554545 E78.5 Lipid panel is pending from lab draw today. Continue simvastati n 20 mg daily, also repeat labs in July Hypothyroidism 47515668 E03.9 continue levothyrox ine 100 mcg daily. Current lab pending next order given for July Long-term drug therapy 732037352 Z79.899 CBC, liver panel and metabolic panel ordered for July Postmenopa usal osteoporosis 502224116 M81.0 2201 DEXA scan up-to-date . Now on treatment with ibandronat e 150 mg monthly Positive s creening for depression on PHQ-9 (Patient Health Questionnaire 9) 9281317877 38860 Z13.31 [id number] Patient was positive screening today. She does feel stable overall with no acute concerns or complaints Obese class II 732295848 1 86511 E66.812 E66.3 [id number] discussed healthy diet, exercise, controllin g carbohydra maria teresa and added sugars in the diet Dyspnea on exertion 6084 5006 R06.09 [id number] Refer for ultrasound echo with Doppler, refer for Lexiscan Cardiolite stress testing to rule out coronary artery disease as the cause of dyspnea on exertion in the face of notable cardiac risk factors including diabetes hypertensi on and hyperlipid emia. We are also going to get a baseline chest x-ray Sleep apnea 99927057 G47 .30 [id number] Refer for home sleep study testing for observed sleep apnea with high suspicion of sleep apnea Health Concerns Section Related Observation LastModified by Organization Detai ls LastModified Time None Recorded Concern Status LastModified by Organization Details LastModified Time None Recorded Advance Directives Directive N: Payers Insurance Date Sequence Insurance Name Policy Number Policy Urban Covered Member ID Urban Member ID Guarantor Name 03/14/2025 1 [employer] (MEDICARE REPLACEMENT/A DVANTAGE - PPO) Jennifer Ibrahim [id number] Jennifer Ibrahim Notes Date Note Type Note Provider Name and Address Organization Details Recorded Time 10/29/19 24 text/ht ml HyperlipidemiaReported by PatientHPIFor duration, patient reportschronic. For compliance, patient reportsnoncompliant with dietanddoes not exercisebut reportscompliant. For risk factors, patient reportsdiabetesandhypertension. For control, patient reportsusually well controlled. For complications, patient reportsno coronary artery disease,no peripheral artery disease, andno cardiovascular disease.Patient is taking simvastatin 20 mg daily HypertensionReported by PatientHPIFor duration, patient reportshas noted for years. For onset/timing, patient reportsbetter. For alleviating factors, patient reportsmedication. For associated symptoms, patient reportsno shortness of breath,no fatigue,no palpitations,no decline in exercise capacity, andno snoring.Patient is taking lisinopril low-dose 2.5 mg daily DiabetesReported by PatientHPIFor self care, patient reportsnot taking aspirin dailybut reportsmonitoring glucose 2 times per day,seeing eye doctor regularly, andchecking feet regularly. For associated symptoms, patient reportsdizziness,numbness of feet, andcalluses on feetbut reportsno weight gain,no weight loss,no sweats,no headaches,no confusion,no increased thirst,no increased appetite,no increased urination, andno blurred vision. For duration, patient reportschronic. For control, patient reportsusually well controlled. For compliance, patient reportscompliant with medications,compliant with follow-up visits,compliant with diet, andcompliant with home glucose monitoring.Diabetic foot exam done on both feet- [place] all 9 locations. Patient is taking metformin 1000 mg twice a day, glimepiride 1 mg twice a day and Ozempic 1 mg weekly ThyroidReported by PatientHPIFor context, patient reportshistory of thyroid diseaseandhistory of hypothyroidismbut reportsnormal thyroid levels,no history of head or neck radiation during childhood,no history of hypothyroidism,no history of hyperthyroidism, andno excess iron exposure. For exercise, patient reportsno exercise. For quality, patient reportsnot changing. For duration, patient reportsconstant. For onset/timing, patient reportsstill present. For modifying factors, patient reportsmedication. For associated symptoms, patient reportsno cold intolerance,no heat intolerance,no weight loss,no weight gain,no double vision,no dry eyes,no hoarseness,no difficulty swallowing,no neck masses,no deepening of the voice,no fast heart rate,no increased blood pressure,no palpitations,no chest pain,no chest tightess or pressure,no constipation,no diarrhea,no vomiting,no decreased appetite,no loose stools,no irregular menstrual periods,no excessive sweating,no joint pain,no numbness,no tingling of the hands or feet,no dry skin,no tremor,no nervousness,no anxiety,no depression,no fatigue,no sleep difficulties,no skin changes, andno hair changes.Patient is taking levothyroxine 100 mcg daily KULWINDER Chan Attn: Accounting, [address] [place], [address], [facility] 11/09/2023 13:39:34 04/21/20 24 text/ht ml HyperlipidemiaReported by PatientHPIFor duration, patient reportschronic. For compliance, patient reportsnoncompliant with dietanddoes not exercisebut reportscompliant. For risk factors, patient reportsdiabetesandhypertension. For control, patient reportsusually well controlled. For complications, patient reportsno coronary artery disease,no peripheral artery disease, andno cardiovascular disease.Patient is taking simvastatin 20 mg daily HypertensionReported by PatientHPIFor duration, patient reportshas noted for years. For onset/timing, patient reportsbetter. For alleviating factors, patient reportsmedication. For associated symptoms, patient reportsno shortness of breath,no fatigue,no palpitations,no decline in exercise capacity, andno snoring.Patient is taking lisinopril low-dose 2.5 mg daily DiabetesReported by PatientHPIFor self care, patient reportsnot taking aspirin dailybut reportsmonitoring glucose 2 times per day,seeing eye doctor regularly, andchecking feet regularly. For associated symptoms, patient reportsdizziness,numbness of feet, andcalluses on feetbut reportsno weight gain,no weight loss,no sweats,no headaches,no confusion,no increased thirst,no increased appetite,no increased urination, andno blurred vision. For duration, patient reportschronic. For control, patient reportsusually well controlled. For compliance, patient reportscompliant with medications,compliant with follow-up visits,compliant with diet, andcompliant with home glucose monitoring.Patient is taking metformin 1000 mg twice a day, glimepiride 1 mg twice a day . unable to afford ozempic at this time. ThyroidReported by PatientHPIFor context, patient reportshistory of thyroid diseaseandhistory of hypothyroidismbut reportsnormal thyroid levels,no history of head or neck radiation during childhood,no history of hypothyroidism,no history of hyperthyroidism, andno excess iron exposure. For exercise, patient reportsno exercise. For quality, patient reportsnot changing. For duration, patient reportsconstant. For onset/timing, patient reportsstill present. For modifying factors, patient reportsmedication. For associated symptoms, patient reportsno cold intolerance,no heat intolerance,no weight loss,no weight gain,no double vision,no dry eyes,no hoarseness,no difficulty swallowing,no neck masses,no deepening of the voice,no fast heart rate,no increased blood pressure,no palpitations,no chest pain,no chest tightess or pressure,no constipation,no diarrhea,no vomiting,no decreased appetite,no loose stools,no irregular menstrual periods,no excessive sweating,no joint pain,no numbness,no tingling of the hands or feet,no dry skin,no tremor,no nervousness,no anxiety,no depression,no fatigue,no sleep difficulties,no skin changes, andno hair changes.Patient is taking levothyroxine 100 mcg daily KULWINDER Chan Attn: Accounting, [address] [place], [address], [place] [facility] 05/04/2024 15:17:26 10/21/19 25 text/ht ml HyperlipidemiaReported by PatientHPIFor duration, patient reportschronic. For compliance, patient reportsnoncompliant with dietanddoes not exercisebut reportscompliant. For risk factors, patient reportsdiabetesandhypertension. For control, patient reportsusually well controlled. For complications, patient reportsno coronary artery disease,no peripheral artery disease, andno cardiovascular disease.Patient is taking simvastatin 20 mg daily HypertensionReported by PatientHPIFor duration, patient reportshas noted for years. For onset/timing, patient reportsbetter. For alleviating factors, patient reportsmedication. For associated symptoms, patient reportsno shortness of breath,no fatigue,no palpitations,no decline in exercise capacity, andno snoring.Patient is taking lisinopril low-dose 2.5 mg daily DiabetesReported by PatientHPIFor self care, patient reportsnot taking aspirin dailybut reportsmonitoring glucose 2 times per day,seeing eye doctor regularly, andchecking feet regularly. For associated symptoms, patient reportsdizziness,numbness of feet, andcalluses on feetbut reportsno weight gain,no weight loss,no sweats,no headaches,no confusion,no increased thirst,no increased appetite,no increased urination, andno blurred vision. For duration, patient reportschronic. For control, patient reportsusually well controlled. For compliance, patient reportscompliant with medications,compliant with follow-up visits,compliant with diet, andcompliant with home glucose monitoring.Patient is taking metformin 1000 mg twice a day, glimepiride 1 mg twice a day . unable to afford [employer] at this time. ThyroidReported by PatientHPIFor context, patient reportshistory of thyroid diseaseandhistory of hypothyroidismbut reportsnormal thyroid levels,no history of head or neck radiation during childhood,no history of hypothyroidism,no history of hyperthyroidism, andno excess iron exposure. For exercise, patient reportsno exercise. For quality, patient reportsnot changing. For duration, patient reportsconstant. For onset/timing, patient reportsstill present. For modifying factors, patient reportsmedication. For associated symptoms, patient reportsno cold intolerance,no heat intolerance,no weight loss,no weight gain,no double vision,no dry eyes,no hoarseness,no difficulty swallowing,no neck masses,no deepening of the voice,no fast heart rate,no increased blood pressure,no palpitations,no chest pain,no chest tightess or pressure,no constipation,no diarrhea,no vomiting,no decreased appetite,no loose stools,no irregular menstrual periods,no excessive sweating,no joint pain,no numbness,no tingling of the hands or feet,no dry skin,no tremor,no nervousness,no anxiety,no depression,no fatigue,no sleep difficulties,no skin changes, andno hair changes.Patient is taking levothyroxine 100 mcg daily KULWINDER Chan Attn: Accounting, [address] , [place], [address], [place] [facility] 11/01/2024 13:23:18 12/23/19 25 text/ht ml MAW 2Reported by PatientSocial/Behavioral HistoryFor diet and nutrition, patient reportsdiscussed portion controlanddiscussed diet improvement. For fracture risk, patient reportsno history of fracturesandno sudden unexplained fractures.Mental Status:For concentration and memory, patient reportsno decreased concentrating ability,no memory lapses or loss, anddoes not forget words. For speech/motor difficulties, patient reportsno speech difficulties,no difficulty expressing formulated concepts,no difficulty with fine manipulative tasks,no difficulty writing/copying,no slowed reaction time, anddoes not knock things over when trying to pick them up.Functional AbilityFor hearing, patient reportsno loss of hearing. For vision, patient reportsno vision problems. For activities of daily living, patient reportsable to bathe with limited or no assistance,able to contol urination and bowels,able to dress with limited or no assistance,able to feed self with limited or no assistance,able to get out of chair or bed with limited or no assistance,able to groom with limited or no assistance, andable to toilet with limited or no assistance. For instrumental activities of daily living, patient reportsable to do house work with limited or no assistance,able to grocery shop with limited or no assistance,able to manage medications with limited or no assistance,able to manage money with limited or no assistance,able to prepare meals with limited or no assistance, andable to use the phone with limited or no assistance. For falls risk assessment, patient reportsno frequent falls while walking,no fall in the past year,no fall since last visit, andno dizziness/vertigo. For home safety, patient reportsno unsafe kelly hazzards,no unsafe stairs,has hand bars in the bathroom/shower, andgood lighting in the home. KULWINDER Chan Attn: Accounting, [address] , [place], [address], [place] [facility] 01/03/2025 15:06:23 03/09/20 25 text/ht ml HyperlipidemiaReported by PatientHPIFor duration, patient reportschronic. For compliance, patient reportsnoncompliant with dietanddoes not exercisebut reportscompliant. For risk factors, patient reportsdiabetesandhypertension. For control, patient reportsusually well controlled. For complications, patient reportsno coronary artery disease,no peripheral artery disease, andno cardiovascular disease.Patient is taking simvastatin 20 mg daily HypertensionReported by PatientHPIFor duration, patient reportshas noted for years. For onset/timing, patient reportsbetter. For alleviating factors, patient reportsmedication. For associated symptoms, patient reportsno shortness of breath,no fatigue,no palpitations,no decline in exercise capacity, andno snoring.Patient is taking lisinopril low-dose 2.5 mg daily DiabetesReported by PatientHPIFor self care, patient reportsnot taking aspirin dailybut reportsmonitoring glucose 2 times per day,seeing eye doctor regularly, andchecking feet regularly. For associated symptoms, patient reportsdizziness,numbness of feet, andcalluses on feetbut reportsno weight gain,no weight loss,no sweats,no headaches,no confusion,no increased thirst,no increased appetite,no increased urination, andno blurred vision. For duration, patient reportschronic. For control, patient reportsusually well controlled. For compliance, patient reportscompliant with medications,compliant with follow-up visits,compliant with diet, andcompliant with home glucose monitoring.Patient is taking metformin 1000 mg twice a day, glimepiride 1 mg twice a day . unable to afford ozempic at this time. ThyroidReported by PatientHPIFor context, patient reportshistory of thyroid diseaseandhistory of hypothyroidismbut reportsnormal thyroid levels,no history of head or neck radiation during childhood,no history of hypothyroidism,no history of hyperthyroidism, andno excess iron exposure. For exercise, patient reportsno exercise. For quality, patient reportsnot changing. For duration, patient reportsconstant. For onset/timing, patient reportsstill present. For modifying factors, patient reportsmedication. For associated symptoms, patient reportsno cold intolerance,no heat intolerance,no weight loss,no weight gain,no double vision,no dry eyes,no hoarseness,no difficulty swallowing,no neck masses,no deepening of the voice,no fast heart rate,no increased blood pressure,no palpitations,no chest pain,no chest tightess or pressure,no constipation,no diarrhea,no vomiting,no decreased appetite,no loose stools,no irregular menstrual periods,no excessive sweating,no joint pain,no numbness,no tingling of the hands or feet,no dry skin,no tremor,no nervousness,no anxiety,no depression,no fatigue,no sleep difficulties,no skin changes, andno hair changes.Patient is taking levothyroxine 100 mcg daily DyspneaReported by PatientHPIFor quality, patient reportsdyspnea. For context, patient reportswith activity,when lying down,walking on level ground,walking up inclines, andwalking up strairs. For aggravating factors, patient reportsactivity. For associated symptoms, patient reportsdecrease in exercise capacity. For severity, patient reportsmoderate. For duration, patient reportsfor 6 weeks. For onset/timing, patient reportsdaily. For alleviating factors, patient reportsrelieved with rest. KULWINDER Chan Attn: Accounting, [address] [facility], [place], [address], [facility] - [facility] 03/13/2025 22:18:08 OBGyn Episode No OBEpisode recorded.
--- OUTSIDE RECORDS SUMMARY | 2025-04-05 09:00 | XMS_ITS | Continuity of Care Document ---
Author Organization [place], [facility] [place] Address [address] [place] [address] Care Team Providers Care Evaporator Operator Molasses Name Role Phone TATYANA HARRISON Primary Care Provider Unavailab le Assessment Encounter Date Assessment Date Assessment LastModified by Organization Details LastModified Time 03/09/2025 03/09/2025November lab work; Labs show special [...] available Lab CBC w/ auto diff 2024 [id number] [facility], [address], [place], [address], 03/09/2025 12:25:16 hepatic function panel, serum 2024 026 [facility], [address], [place], [address], 03/09/2025 12:25:15 BMP, serum or plasma 2024 026 [facility], [address], [place], [address], 03/09/2025 12:25:15 lipid panel, serum 2024 026 [facility], [address], [place], [address], 03/09/2025 12:25:15 HbA1c (hemoglob in A1c), blood 2024 026 [facility], [address], [place], [address], 03/09/2025 12:25:15 TSH + free T4, serum 2024 026 [facility], [address], [place], [address], 03/09/2025 12:25:16 Referral None recorded. Procedures lexiscan cardiolit e stress test (PROC) [address] (Cardiology & Emg), [address], [place], [address], 04/04/2025 16:52:47 home sleep testing (PROC) - please proceed larisa.. 2024 025 [facility], [address], [place], [address], 03/23/2025 11:20:46 Surgeries None recorded. Imaging US, echocardi ogram, transthor acic, complete, w/ color flow 2024 [facility] (Cardiology [facility]), [address], [place], [address], 03/29/2025 15:53:45 XR, chest, 2 view 2024 [facility] (Imaging), [address], [place], [address], 03/24/2025 10:18:50 Medication Orders Ozempic 1 mg/dose (4 mg/3 mL) subcutane ous pen injector 2024 [facility], [address] [place] [address], [address], 03/10/2025 09:03:52 Patient TargetsNo targets recorded. Patient Instructions Encounter Date Encounter Id Patient Instructions Last Modified By Organization Details Last Modified Time 03/09/2025 [id number] A healthy lifestyle: care instructions Not available 03/09/2025 12:25:15 Reason for Referral None Reported. Results Created Date Observation Date Name Description Value Unit Range Abnormal Flag Note LastModifiedBy Organization Detail LastModifiedTime 03/09/2003/10/2025 LIPID PANEL WITH RATIO S cholesterol, total 134 mg/dL <200 normal Not Available [facility] [address] [place], [address], 03/10/2025 03:34:22 03/09/2003/10/2025 LIPID PANEL WITH RATIO S HDL cholesterol 46 mg/dL > or = 50 low Not Available [facility] [address] [place], [address], 03/10/2025 03:34:22 03/09/2003/10/2025 LIPID PANEL WITH RATIO S triglyceride s 100 mg/dL <150 normal Not Available [facility] [address] [place], [address], 03/10/2025 03:34:22 03/09/20 25 03/10/2025 LIPID PANEL WITH RATIO S LDL-choleste rol 69 mg/dL _(fidel c) normal Refer ence range : <100 Jonna able range <100 mg/dL for prima ry preve ntion ; <70 mg/dL for patie nts with CHD or diabe tic patie nts with > or = 2 CHD risk facto rs. LDL-C is now calcu lated using the Lissett n-Hop kins calcu dhaval n, which is a valid ated novel nabilo d korii aleisha ton r accur acy than the Fried andrea equat ion in the estim ation of LDL-C . Lissett joe SS et al. DEWAYNE. 2013; 310(1 9): 2061- 2068 (http ://ed ucati on.Qu [employer]. com/f aq/FA Q164) Not Available [facility] [address] [place], [place] [address], [place], [address], 03/10/2025 03:34:22 03/09/2003/10/2025 LIPID PANEL WITH RATIO S chol/HDLC ratio 2.9 (calc ) <5.0 normal Not Available [facility] [address] [place] [address], [address], 03/10/2025 03:34:22 03/09/20 25 03/10/2025 LIPID PANEL WITH RATIO S LDL/HDL ratio 1.5 (calc ) Below avera ge Risk: <2.34 Furman ge Risk: 2.35- 4.12 Moder ate Risk: 4.13- 5.56 High Risk: >5.57 Not Available [facility] [address] [place], [address], 03/10/2025 03:34:22 03/09/20 25 03/10/2025 LIPID PANEL WITH RATIO S non HDL cholesterol 88 mg/dL _(fidel c) <130 normal For patie nts with diabe maria teresa plus 1 major ASCVD risk facto r, treat ing to a non-H DL-C goal of <100 mg/dL (LDL- C of <70 mg/dL ) is consi félix etjada optio n. Not Available [address], [address], 03/10/2025 03:34:22 03/09/20 25 03/10/2025 TSH+F REE T4 TSH 0.01 mIU/L 0.40-4 .50 low Not Available [address], [address], 03/10/2025 03:34:23 03/09/20 25 03/10/2025 TSH+F REE T4 T4, free 1.5 NG/dL 0.8-1. 8 normal Not Available [address], [address], 03/10/2025 03:34:23 03/09/20 25 03/10/2025 BASIC METAB OLIC PANEL glucose 97 mg/dL 65-99 normal Fasti ng refer ence inter alexander Not Available [address], [address], 03/10/2025 03:34:24 03/09/20 25 03/10/2025 BASIC METAB OLIC PANEL urea nitrogen (BUN) 16 mg/dL 7-25 normal Not Available [address], [address], 03/10/2025 03:34:24 03/09/20 25 03/10/2025 BASIC METAB OLIC PANEL creatinine 1.09 mg/dL 0.50-1 .05 high Not Available [address], [address], 03/10/2025 03:34:24 03/09/20 25 03/10/2025 BASIC METAB OLIC PANEL eGFR 55 mL/mi n/1.7 3m2 > or = 60 low Not Available [address], [address], 03/10/2025 03:34:24 03/09/20 25 03/10/2025 BASIC METAB OLIC PANEL BUN/creatini ne ratio 15 (calc ) 6-22 normal Not Available [address], [address], 03/10/2025 03:34:24 03/09/20 25 03/10/2025 BASIC METAB OLIC PANEL sodium 141 mmol/ L 135-14 6 normal Not Available [address], [address], 03/10/2025 03:34:24 03/09/20 25 03/10/2025 BASIC METAB OLIC PANEL potassium 4.3 mmol/ L 3.5-5. 3 normal Not Available [address], [address], 03/10/2025 03:34:24 03/09/20 25 03/10/2025 BASIC METAB OLIC PANEL chloride 108 mmol/ L 98-110 normal Not Available [address], [address], 03/10/2025 03:34:24 03/09/20 25 03/10/2025 BASIC METAB OLIC PANEL carbon dioxide 27 mmol/ L 20-32 normal Not Available [address], [address], 03/10/2025 03:34:24 03/09/20 25 03/10/2025 BASIC METAB OLIC PANEL calcium 9.1 mg/dL 8.6-10 .4 normal Not Available [address], [address], 03/10/2025 03:34:24 03/09/20 25 03/10/2025 HEPAT IC FUNCT ION PANEL protein, total 6.5 g/dL 6.1-8. 1 normal Not Available [address], [address], 03/10/2025 03:34:24 03/09/20 25 03/10/2025 HEPAT IC FUNCT ION PANEL albumin 4.1 g/dL 3.6-5. 1 normal Not Available [address], [address], 03/10/2025 03:34:24 03/09/20 25 03/10/2025 HEPAT IC FUNCT ION PANEL globulin 2.4 g/dL_ (calc ) 1.9-3. 7 normal Not Available [address], [address], 03/10/2025 03:34:24 03/09/20 25 03/10/2025 HEPAT IC FUNCT ION PANEL albumin/glob ulin ratio 1.7 (calc ) 1.0-2. 5 normal Not Available [address], [address], 03/10/2025 03:34:24 03/09/20 25 03/10/2025 HEPAT IC FUNCT ION PANEL bilirubin, total 0.6 mg/dL 0.2-1. 2 normal Not Available [address], [address], 03/10/2025 03:34:24 03/09/20 25 03/10/2025 HEPAT IC FUNCT ION PANEL bilirubin, direct 0.1 mg/dL < or = 0.2 normal Not Available [address], [address], 03/10/2025 03:34:24 03/09/20 25 03/10/2025 HEPAT IC FUNCT ION PANEL bilirubin, indirect 0.5 mg/dL _(fidel c) 0.2-1. 2 normal Not Available [address], [address], 03/10/2025 03:34:24 03/09/20 25 03/10/2025 HEPAT IC FUNCT ION PANEL alkaline phosphatase 59 U/L 37-153 normal Not Available [facility] [address] [address] [place], [address], 03/10/2025 03:34:24 03/09/20 25 03/10/2025 HEPAT IC FUNCT ION PANEL AST 17 U/L 10-35 normal Not Available [address], [address], 03/10/2025 03:34:24 03/09/20 25 03/10/2025 HEPAT IC FUNCT ION PANEL ALT 19 U/L 6-29 normal Not Available [address], [address], 03/10/2025 03:34:24 03/09/20 25 03/10/2025 CBC (INCL UDES DIFF/ PLT) white blood cell count 6.2 thous and/u L 3.8-10 .8 normal Not Available [address], [address], 03/10/2025 03:34:25 03/09/20 25 03/10/2025 CBC (INCL UDES DIFF/ PLT) red blood cell count 4.72 aldo on/uL 3.80-5 .10 normal Not Available [address], [address], 03/10/2025 03:34:25 03/09/20 25 03/10/2025 CBC (INCL UDES DIFF/ PLT) hemoglobin 14.0 g/dL 11.7-1 5.5 normal Not Available [address], [address], 03/10/2025 03:34:25 03/09/20 25 03/10/2025 CBC (INCL UDES DIFF/ PLT) hematocrit 44.4 % 35.0-4 5.0 normal Not Available [facility] [address], [address], 03/10/2025 03:34:25 03/09/20 25 03/10/2025 CBC (INCL UDES DIFF/ PLT) MCV 94.1 fL 80.0-1 00.0 normal Not Available [address], [address], 03/10/2025 03:34:25 03/09/20 25 03/10/2025 CBC (INCL UDES DIFF/ PLT) MCH 29.7 pg 27.0-3 3.0 normal Not Available [address], [address], 03/10/2025 03:34:25 03/09/20 25 03/10/2025 CBC (INCL UDES DIFF/ PLT) MCHC 31.5 g/dL 32.0-3 6.0 low For adult s, a sligh t decre ase in the calcu lated MCHC value (in the range of 30 to 32 g/dL) is most likel y not clini antonia signi fican t; beatrice er, it shoul d be inter prete d with cauti on in corre lat n with other red cell justin eters and the patie nt's clini fidel condi tion. Not Available [address], [address], 03/10/2025 03:34:25 03/09/20 25 03/10/2025 CBC (INCL UDES DIFF/ PLT) RDW 13.5 % 11.0-1 5.0 normal Not Available [address], [address], 03/10/2025 03:34:25 03/09/20 25 03/10/2025 CBC (INCL UDES DIFF/ PLT) platelet count 196 thous and/u L 140-40 0 normal Not Available [address], [address], 03/10/2025 03:34:25 03/09/20 25 03/10/2025 CBC (INCL UDES DIFF/ PLT) MPV 10.5 fL 7.5-12 .5 normal Not Available [address], [address], 03/10/2025 03:34:25 03/09/20 25 03/10/2025 CBC (INCL UDES DIFF/ PLT) absolute neutrophils 4018 cells /uL 1500-7 800 normal Not Available [address], [address], 03/10/2025 03:34:25 03/09/20 25 03/10/2025 CBC (INCL UDES DIFF/ PLT) absolute lymphocytes 1265 cells /uL 850-39 00 normal Not Available [address], [address], 03/10/2025 03:34:25 03/09/20 25 03/10/2025 CBC (INCL UDES DIFF/ PLT) absolute monocytes 620 cells /uL 200-95 0 normal Not Available [address], [address], 03/10/2025 03:34:25 03/09/20 25 03/10/2025 CBC (INCL UDES DIFF/ PLT) absolute eosinophils 260 cells /uL 15-500 normal Not Available [address], [address], 03/10/2025 03:34:25 03/09/20 25 03/10/2025 CBC (INCL UDES DIFF/ PLT) absolute basophils 37 cells /uL 0-200 normal Not Available [address], [address], 03/10/2025 03:34:25 03/09/20 25 03/10/2025 CBC (INCL UDES DIFF/ PLT) neutrophils 64.8 % normal Not Available [address], [address], 03/10/2025 03:34:25 03/09/20 25 03/10/2025 CBC (INCL UDES DIFF/ PLT) lymphocytes 20.4 % normal Not Available [address], [address], 03/10/2025 03:34:25 03/09/20 25 03/10/2025 CBC (INCL UDES DIFF/ PLT) monocytes 10.0 % normal Not Available [facility] [address], [address], 03/10/2025 03:34:25 03/09/20 25 03/10/2025 CBC (INCL UDES DIFF/ PLT) eosinophils 4.2 % normal Not Available [address], [address], 03/10/2025 03:34:25 03/09/20 25 03/10/2025 CBC (INCL UDES DIFF/ PLT) basophils 0.6 % normal Not Available [facility] [address], [address], 03/10/2025 03:34:25 03/09/2003/10/2025 HEMOG LOBIN A1C hemoglobin [...] maria teresa for child mario. Not Available [facility] [address], [place], [address], 03/10/2025 03:34:25 02/12/20 25 02/11/2025 DEXA No observ ation record ed. [facility] [address], [place], [address], 02/14/2025 15:04:58 Result Notes None recorded. Problems Name Problem SNOMED Code Status Onset Date Resolution Date Notes Provider Name and Address Organization Details Recorded Time Hypothyroid ism 26219329 Active 2023 Nora Jones null, [place] - [facility] 4 10:21:25 Hyperlipide west 76847529 Active 2023 [place] [facility] 4 10:21:30 Essential hypertensio n 15978250 Active 2023 N[place] [facility] 4 10:21:38 Type 2 diabetes mellitus 00597062 Active 2023 [place] [facility] 4 12:25:45 Neuropathy due to diabetes mellitus 209793467 Active 2023 [place] [facility] 4 12:25:55 Uncontrolle d type 2 diabetes mellitus 351788757 Active 2023 KULWINDER Chan Attn: Deric reaves,[address] [facility], [place], [address], [place] [facility] 4 14:03:20 Diabetic peripheral neuropathy 984506066 Active 2023 KULWINDER Chan Attn: Deric reaves,[address] [facility], [place], [address], [place] [facility] 4 14:03:23 Long-term drug therapy Active 2023 KULWINDER Chan Attn: Deric reaves,[address] [facility], [place], [address], [place] [facility] 4 14:03:25 Obesity 178853476 Active 2023 KULWINDER Chan Attn: Accountjennifer reaves,[address] [facility], [place], [address], [place] [facility] 4 13:33:34 Body mass index 30+ - obesity 041896119 Active 2023 KULWINDER Chan Attn: Accountin g,[address] [facility], [place], [address], [place] [facility] 4 13:33:34 Body mass index 40+ - severely obese 067205556 Active 2023 KULWINDER Chan Attn: Jose Migueljennifer reaves,[address] [place], [address], [place] [facility] 5 14:38:50 Obese class III 801575460 Active 2024 KULWINDER Chan Attn: Jose Migueljennifer reaves,[address] [place], [address], [place] [facility] 5 14:38:51 Positive screening for depression on PHQ-9 (Patient Health Questionnai re 9) 0160756965547 00 Active 2024 KULWINDER Chan Attn: Deric reaves,[address] [facility], [place], [address], [place] [facility] 5 13:22:55 Postmenopau keegan osteoporosi s 584406516 Active 2024 KULWINDER Chan Attn: Accountin g,[address] [facility], [place], [address], [place] [facility] 5 11:01:44 Obese class II 5414028806830 05 Active 2024 KULWINDER Chan Attn: Accountjennifer g,[address] [facility], [place], [address], [place] [facility] 5 12:19:52 Problem Notes None recorded. Procedures Surgical History Date Name Laterality Status Provider Name and Address Organization Details Recorded Time 05/31/19 23 [facility] 12:28:25 03/24/20 22 [facility] 12:28:33 05/05/19 11 Carpal tunnel surgery completed [facility] 10/29/2023 12:28:57 05/05/18 91 thyroidectomy completed [facility] 10/29/2023 12:29:07 05/05/18 87 section completed [facility] 10/29/2023 12:29:16 repair of vein completed [facility] 10/29/2023 12:28:48 Imaging Results None recorded. Procedure [...] Not Available Not Available Vitals Date Recorded Respiratory rate Systolic And Diastolic Provider Name and Address Organization Details Last Updated DateTime 03/09/2025 16 /min 120/70 mm[Hg] KULWINDER Chan Attn: Accounting,[address] [place], [address], [facility] 03/09/2025 12:31:49 Date Recorded Body height Body mass index (BMI) Body weight Heart rate Oxygen saturation Systolic And Diastolic Provider Name and Address Organization Details Last Updated DateTime 166.37 cm 39.2 kg/m2 428446. 58 g 100 /min 94 % 124/80 mm[Hg] Diane Jessica MA [facility] 11:59:11 Social History Question Answer Notes LastModified by Organizat ion Details LastModified Time Tobacco Smoking Status Never Smoker Nora chavira, [facility] 10/29/2023 12:26:51 Do You Have An Advance Directive? No Information not available 10/29/2023 Do You Wear A Helmet When Biking? No Information not available 12/22/2024 Are You Blind Or Do You Have Difficulty Seeing? No [email or web address] Information not available 10/29/2023 Is Blood Transfusion Acceptable In An Emergency? Yes Information not available 12/22/2024 What Is Your Level Of Caffeine Consumption? Moderate [email or web address] Information not available 10/29/2023 What Type Of Forestry Faculty Member Do You Use? None Information not available [...] Do You Have Serious Difficulty Hearing? Yes [email or web address] Information not available 10/29/2023 What Type Of Diet Are You Following? REGULAR [email or web address] Information not available 10/29/2023 Have There Been Any Changes To Your Family Or Social Situation? No Information no t available 12/22/2024 What Is The Fluoride Status Of Your Home? Unknown Information not available 12/22/2024 Are There Any Guns Present In Your Home? No [email or web address] Information not available 10/29/2023 Which Of Your [...] 7 Days, How Much Pain Have You [place]? A Lot Information not available 12/22/2024 In [...] Past 7 Days, How Often Have You [place] Sleepy In The Daytime? Sometimes Information not available 12/22/2024 On They Days When You Drank Alcohol, How Often Did You Have 4 Or More Drinks At A Time? Never Information no t available 12/22/2024 # Alcohol Drinks Per Week 0 Information not available 12/22/2024 Do You Have A Medical Power Of Spin Instructor? No Information not available 12/22/2024 What Was The Date Of Your Most Recent Tobacco Screening? 03/09/2025 Information not available 03/09/2025 How Many Children Do You Have? 2 Information not available 12/22/2024 Do You Have Any Pets? Yes Dog Information not available 12/22/2024 What Is Your Relationship Status? [email or web address] Information not available 10/29/2023 Do You Use [...] 12/22/2024 Do You Use Sunscreen Routinely? Yes [email or web address] Information not available 10/29/2023 Has Tobacco Cessation Counseling Been Provided? Yes Information not available 10/28/2023 On What Date Was Tobacco Cessation Counseling Provided? 03/09/2025 Information not available 03/09/2025 Are You Currently In School? No Information not available 12/22/2024 Sex: Female Functional Status Question Answer Note LastModified by Organization Details LastModified Time Do you use any illicit or recreational drugs? No [email or web address] Information not available 10/29/2023 Do you or have you ever used any other forms of tobacco or nicotine? No [email or web address] Information not available 10/29/2023 What is your level of alcohol consumption? Occasional [email or web address] Information not available 10/29/2023 Are you currently employed? Yes [email or web address] Information not available 10/29/2023 Are you able to care for yourself independently? Yes Information not available 10/28/2023 What is your exercise level? None [email or web address] Information not available 10/29/2023 What type of noise exposure are you exposed to? noExposureToExcessiveNoise Infor mation not available 12/22/2024 Mental Status Question Answer Note LastModified by Organizat ion Details LastModified Time Do you feel stressed (tense, restless, nervous, or anxious, or unable to sleep at night)? [id number] sometimes but not in relations to anxiety Information not available 12/22/2024 Family History Relationship Description Onset Age of this Age Resolved Age Notes LastModified by Organization Details LastModified Time Mother Malignant neoplasm of breast [email or web address] Not available 10/28 12:26:14 Father Hypertensive disorder [email or web address] Not available 10/28 12:26:25 Father Diabetes mellitus [email or web address] Not available 2023 15:00:32 Medical History Condition Response Coronary Artery Disease N Other N High Blood Pressure N Atrial Fibrillation N Kidney or Bladder Problems N Thyroid Problems Y GI Problems N Depression N COPD N Blood Clots N Skin Problems N Anemia N Heart Attack (CA) N Anxiety Disorder N Diabetes Y Muscle, Joint, or Bone Problems Y Seizures/Epilepsy N Acid Reflux (GERD) N Cancer N Stroke N Asthma N Allergies N High Cholesterol Y Hepatitis N Liver Disease N Headaches Y Heart Failure N Osteoporosis N Gynecological History Statement/Question Response Menses Monthly N Current Control Method Menopause Obstetrics History GPAL:G 0 P 0 0 0 0 Immunizations Vaccine Type Date Status Note Provider Nam e and Address Organization Details Recorded Time zoster recombinant 3 completed JASMINA [place], [place] [facility] 04/21/2024 14:11:12 zoster recombinant 3 completed [place]ASMIN[place] [facility] 04/21/2024 14:11:12 COVID-19 vaccine, vector-nr, rS-Ad26, PF, 0.5 mL 1 completed [place]ASMIN[place] [facility] 04/21/2024 14:11:12 COVID-19 vaccine, [...] 04/21/2024 14:11:12 pneumococcal polysaccharide PPV23 3 completed JASMINA [place] [facility] 04/21/2024 14:11:12 Pneumococcal conjugate PCV21, polysaccharide [id number] conjugate, PF 5 completed Not Available [facility] 03/09/2025 11:20:37 COVID-19, mRNA, LNP-S, PF, 50 mcg/0.5 mL 5 completed Not Available [facility] 03/09/2025 11:20:37 Past Encounters Encounter ID Performer Location Encounter Start Date Encounter Closed Date Diagnosis/Indication Diagnosis SNOMED-CT Code Diagnosis ICD10 Code Diagnosis IMO Codes Diagnosis Note [id number] KULWINDER Chan [facility] [place] [address] [place] [address] 03/09/2025 11:19:18 03/09/2025 13:01:28 Uncontrolled type 2 diabetes mellitus 497511580 E11.65 A1c at 8.1% on previous labs but we are anticipati ng an improvemen t. She is back on Ozempic., labs are pending from draw today. Increase Ozempic to 1 mg weekly dosing and repeat A1c labs again in July we will call her when her current labs come in with results Diabetic p eripheral neuropathy 782946365 E11.40 Patient does take gabapentin patient does take gabapentin 300 mg 2 capsules twice daily and is stable. Hyperlipidemia 92244564 E78.5 Lipid panel is pending from lab draw today. Continue simvastati n 20 mg daily, also repeat labs in July Hypothyroidism 62931329 E03.9 continue levothyrox ine 100 mcg daily. Current lab pending next order given for July Long-term drug therapy 435941860 Z79.899 CBC, liver panel and metabolic panel ordered for July Postmenopa usal osteoporosis 265169995 M81.0 2201 DEXA scan up-to-date . Now on treatment with ibandronat e 150 mg monthly Positive s creening for depression on PHQ-9 (Patient Health Questionnaire 9) 3629574170 57932 Z13.31 [id number] Patient was positive screening today. She does feel stable overall with no acute concerns or complaints Obese class II 175259413 1 [address] E66.812 E66.3 [id number] discussed healthy diet, exercise, controllin g carbohydra maria teresa and added sugars in the diet Dyspnea on exertion 6084 5006 R06.09 [id number] Refer for ultrasound echo with Doppler, refer for Lexiscan Cardiolite stress testing to rule out coronary artery disease as the cause of dyspnea on exertion in the face of notable cardiac risk factors including diabetes hypertensi on and hyperlipid emia. We are also going to get a baseline chest x-ray Sleep apnea 87271344 G47 .30 [id number] Refer for home sleep study testing for observed sleep apnea with high suspicion of sleep apnea Health Concerns Section Related Observation LastModified by Organization Madeline henderson LastModified Time None Recorded Concern Status LastModified by Organization Details LastModified Time None Recorded Payers Encounter Date Sequence Insurance Name Policy Number Policy Urban Covered Member ID Urban Member ID Guarantor Name 03/09/2025 1 BEULAH (MEDICARE REPLACEMENT/A DVANTAGE - PPO) Jennifer Ibrahim [id number] Jennifer Ibrahim Notes Date Note Type Note Provider Name and Address Organization Details Recorded Time 03/09/20 25 text/ht ml HyperlipidemiaReported by PatientHPIFor [...] with rest. KULWINDER Chan Attn: Accounting, [address] [place], [address], [facility] 03/13/2025 22:18:08 OBGyn Episode No OBEpisode recorded.
[2025-04-05] MEDS: PERFLUTREN LIPID MICROSPHERES 1.5 ML VIAL DILUTED TO 10 ML TOTAL VOLUME IV PUSH (10:08)
--- NOTE | 2025-04-05 10:08 | IVDEFINITY ---
Prior to administration of IV Definity the patient was educated on the risks and benefits of the imaging enhancing agent including potential adverse side effects. The patient verbalized understanding. Allergies were verified. No exclusion criteria were identified and at least one of the following inclusion criteria were met: 1) physician request, 2) patient technically difficult to image (per the [place] [employer] guidelines of two or more segments not discernable within the apical view), or 3) questionable left ventricular function. ?
== END 2025-04-05 08:46 | disposition home or self-care (01) ==
PROVIDERS: PCP Physician Assistant; Visit Provider Physician Assistant
DX: R06.09 Other forms of dyspnea (principal)
CPT/HCPCS: 78452; 93017; A9502; C8929; J2785; Q9957